=== PATIENT | female | born 1975 | race Caucasian/White ===

== ENCOUNTER 2017-09-22 12:41 | Outpatient (CLI) | payer MEDICARE ==
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
== END 2017-09-22 12:42 | disposition home or self-care (01) ==
LOC: TBSIIMAG 12:41
PROVIDERS: ATTEND Neurological Surgery
DX: M50.30 Other cervical disc degeneration, unspecified cervical region (principal); M47.892 Other spondylosis, cervical region
CPT/HCPCS: 72040; 72141

== ENCOUNTER 2017-10-12 06:18 | Day surgery (SDC) | payer MEDICARE ==
[2017-10-09 09:34] VITALS: BMI 18.4
[2017-10-12] MEDS ORDERED: Sodium Chloride 0.9% 10 ML ONE (06:38)
[2017-10-12 07:11] LABS: Hemoglobin 11.5 g/dL (12.0-16.0); Mean Corpuscular HGB CONC 32.4 g/dL (32.0-36.0); Mean Corpuscular Hemoglobin 29.2 pg (27.0-31.0); Mean Corpuscular Volume 90.3 fl (81.0-99.0); Mean Platelet Volume 7.5 fL (7.4-10.4); Platelet Count 400 thou/uL (130-400); RBC Distribution Width 14.1 % (11.5-14.5); Red Blood Cell (RBC) Count 3.94 mill/uL (4.20-5.40); White Blood Cell (WBC) Count 11.1 thou/uL (4.8-10.8)
[2017-10-12] MEDS ORDERED: CEFAZOLIN/Water 2 GM/20 ML SYRINGE ONE (07:26)
[2017-10-12 07:27] LABS: Anion Gap 9 mmol/L (10-20); BUN (Urea Nitrogen) 16 mg/dL (7.0-18.7); Calc. Creatinine Clearance 71 mL/min (70-130); Calcium 9.3 mg/dL (7.8-10.44); Carbon Dioxide 23 mmol/L (22-29); Chloride 111 mmol/L (98-107); Estimated GFR-MDRD 67; Glucose 107 mg/dL (70-105); Potassium 4.1 mmol/L (3.5-5.1); Sodium 139 mmol/L (136-145)
[2017-10-12] MEDS ORDERED: Fentanyl 100 MCG/2 ML VIAL ONE ×4 (07:35→09:56)
[2017-10-12] MEDS ORDERED: Midazolam HCl 2 mg/2 ml Vial ONE (08:22)
[2017-10-12] MEDS ORDERED: HYDROmorphone 0.5 MG/0.5 ML SYRINGE ONE (08:30)
--- NOTE | 2017-10-12 10:22 | OP ---
DATE OF PROCEDURE: 10/12/2017 SURGEON: Raheem Hughes M.D. PROCEDURES PERFORMED: Anterior cervical discectomy C5-6 and C6-7, interbody arthrodesis, intraverteb ral biomechanical device, local morselized autograft, demineralized bone matrix, anterior titanium in strumentation C5-C7. PROCEDURE IN DETAIL: The patient was brought to the operating room and intubated. She was positione d supine in modest extension on a gel-filled donut. Incision was made in the right precervical area and dissecting medial sternocleidomastoid muscle, identified the anterior cervical spine and our leve l was confirmed by x-ray. We debrided anterior osteophytes, placed distraction across C5-C7 and comp letely decompressed the intravertebral discs. Next, the bony endplates were decorticated for the fir st arthrodesis and appropriately sized intravertebral biomechanical PEEK device was brought into the field, filled with demineralized bone matrix, local morselized autograft, and tapped into place secur xiao at C5-6 and C6-7. Next, an anterior plate was brought into the field and secured to C5, C6, and C7 using two 14 mm screws at each level. The wound was then extensively irrigated, immaculate hemost asis was secured, and the wound was closed in anatomic layers.
[2017-10-12] MEDS ORDERED: HYDROcodone/Acetaminophen 5/325 mg Tablet ONE (11:08)
== END 2017-10-12 11:35 | disposition home or self-care (01) ==
LOC: SDC 06:18
PROVIDERS: ATTEND Neurological Surgery
PROC: 0RG20A0 Fusion of 2 or more Cervical Vertebral Joints with Interbody Fusion Device, Anterior Approach, Anterior Column, Open Approach (ICD-10-PCS; principal; 2017-10-12)
DX: M50.823 Other cervical disc disorders at C6-C7 level (principal); M41.9 Scoliosis, unspecified; M79.7 Fibromyalgia; R25.1 Tremor, unspecified; F17.210 Nicotine dependence, cigarettes, uncomplicated; Z88.2 Allergy status to sulfonamides; Z88.5 Allergy status to narcotic agent; Z98.890 Other specified postprocedural states
CPT/HCPCS: 36415; 76001; 80048; 85027; 93005; 93010; 96374; A4216; C1713; C1776; J1170; J2250; J3010; J3490

== ENCOUNTER 2017-12-15 13:39 | Outpatient (CLI) | payer MEDICARE ==
--- NOTE | 2017-12-15 14:30 | RAD ---
FOUR VIEWS CERVICAL SPINE SERIES: COMPARISON: Reference is made to 11/02/17. INDICATION: Cervical region disk degeneration. History of prior neck surgery. FINDINGS: There is anterior metallic fusion spanning the C5 through C7 segments, with grossly stable hardware. Lateral masses of C1 are appropriate aligned. Imaged aspects of the dens are intact. Prevertebral soft tissues are normal in caliber. The exam is otherwise grossly stable. IMPRESSION: Stable-appearing postoperative cervical spine. POS: [facility]
== END 2017-12-15 13:40 | disposition home or self-care (01) ==
LOC: TBSIIMAG 13:39
PROVIDERS: ATTEND Neurological Surgery
DX: M50.30 Other cervical disc degeneration, unspecified cervical region (principal); Z98.890 Other specified postprocedural states
CPT/HCPCS: 72040

== ENCOUNTER 2018-01-06 08:40 | Outpatient (CLI) | payer MEDICARE ==
--- NOTE | 2018-01-06 14:10 | MRI ---
MRI THORACIC SPINE NONCONTRAST: CLINICAL HISTORY: Thoracic spine pain. History of remote injury. FINDINGS: There is mild thoracic kyphosis. No acute marrow edema or subluxation. Multilevel chronic Schmorl's nodes are present throughout the thoracic spine. At the T2-3 level, there is a left paracentral dis k protrusion which produces mild effacement/mass effect upon the ventral thoracic spinal cord. At T3 -4, there is a right paracentral disk protrusion with minimal effacement of the right ventral hemicor d. T6-7 level reveals a small disc protrusion with mild ventral cord effacement. There is mild multilevel bilateral degenerative facet hypertrophy. There is no acute paraspinous soft tissue edema. There is an incidental T2 hyperintensity of the melany tral aspect of the liver incompletely evaluated. IMPRESSION: 1. Multilevel degenerative changes of the thoracic spine, as outlined above. 2. Incidental note of T2 hyperintensity of the liver, incompletely evaluated. Recommend pre- and po stcontrast CT of the abdomen to further evaluate. POS: [facility]
--- NOTE | 2018-01-06 14:28 | MRI ---
MRI LUMBAR SPINE WITHOUT CONTRAST: History Lumbar radiculopathy. Chronic pain. COMPARISON: None. FINDINGS: Aortic contour is nonaneurysmal. No retroperitoneal adenopathy. No hydronephrosis. Mild prominence of the right renal pelvis. The background marrow signal is normal. The conus medullaris terminates near the inferior end plate of L1. Levels are as follows: L1-2: Normal disks. No neural foraminal or spinal canal narrowing. L2-3: Normal disks. No neural foraminal or spinal canal narrowing. L3-4: Low-grade circumferential disk bulge. There is mild degenerative disk space height loss. The re is moderate left-sided and mild right-sided neural foraminal narrowing. There does appear to be s ome abutment of the exiting left L3 nerve root. L3-4: Moderate disk desiccation. Mild posterior degenerative disk space height loss. There is a ri ght subforaminal annular fissure. There is abutment of the exiting right nerve root with moderate ne ural foraminal narrowing. No significant left-side neural foraminal narrowing. Mild facet arthrosis . L5-S1: Normal disk. No neural foraminal or spinal canal narrowing. IMPRESSION: Moderate spondylosis as described above, worst at L3-4 and L4-5. POS: [facility]
== END 2018-01-06 08:41 | disposition home or self-care (01) ==
LOC: SCSMRI 08:40
PROVIDERS: ATTEND Neurological Surgery
DX: M47.26 Other spondylosis with radiculopathy, lumbar region (principal); M54.6 Pain in thoracic spine; M47.894 Other spondylosis, thoracic region
CPT/HCPCS: 72146; 72148

== ENCOUNTER 2018-03-29 07:40 | Inpatient (IN) | payer MEDICARE, MEDICAID ==
[2018-03-26 17:41] VITALS: BMI 21.8
[2018-03-29] MEDS ORDERED: CEFAZOLIN/Water 2 GM/20 ML SYRINGE ONE (09:48)
[2018-03-29 09:50] LABS: #Basophils 0.1 thou/uL (0.0-0.2); #Eosinphils 0.2 thou/uL (0.0-0.7); #Lymphocytes 3.9 thou/uL (1.20-3.40); #Monocytes 0.8 thou/uL (0.11-0.59); #Neutrophils 7.8 thou/uL (1.40-6.50); %Basophils 0.9 % (0.0-1.0); %Eosinophils 1.9 % (0.0-10.0); %Lymphocytes 30.2 % (21.0-51.0); %Monocytes 6.4 % (0.0-10.0); %Neutrophils 60.7 % (42.0-75.0); Hemoglobin 13.5 g/dL (12.0-16.0); Mean Corpuscular HGB CONC 32.8 g/dL (32.0-36.0); Mean Corpuscular Volume 94.4 fL (78.0-98.0); Mean Platelet Volume 7.2 fL (7.4-10.4); Platelet Count 277 thou/uL (130-400); RBC Distribution Width 13.3 % (11.5-14.5); Red Blood Cell (RBC) Count 4.35 mill/uL (4.20-5.40); White Blood Cell (WBC) Count 12.8 thou/uL (4.8-10.8)
[2018-03-29] MEDS ORDERED: Fentanyl 100 MCG/2 ML VIAL ONE ×4 (10:06→13:53)
[2018-03-29 10:09] LABS: Anion Gap 10 mmol/L (10-20); BUN (Urea Nitrogen) 16 mg/dL (7.0-18.7); Calc. Creatinine Clearance 93 mL/min (70-130); Carbon Dioxide 24 mmol/L (22-29); Chloride 112 mmol/L (98-107); Estimated GFR-MDRD 76; Glucose 88 mg/dL (70-105); Potassium 4.5 mmol/L (3.5-5.1); Sodium 141 mmol/L (136-145)
[2018-03-29] MEDS ORDERED: Sodium Chloride 0.9% 10 ML ONE (10:39)
--- NOTE | 2018-03-29 12:40 | OP ---
DATE OF PROCEDURE: 03/29/2018 SURGEON: Raheem Hughes M.D. LOADERS: Kashif Long PA-C PROCEDURE: Left L3-L4 laminectomy, facetectomy and diskectomy, interbody arthrodesis, intravertebral biomechanical device, local morselized autograft, demineralized bone matrix, posterior lateral arthr odesis and pedicle screw instrumentation left L3-L4. PROCEDURE IN DETAIL: The patient was brought to the operating room and intubated. She was rolled in the prone position on gel-filled chest rolls. Incision made exposing L3 and L4 bilaterally and our level was confirmed by x-ray. We performed a left L3-4 laminectomy, facetectomy, foraminotomy, and i dentified a far lateral bulging disk, as anticipated. This was incised and debrided and a complete d ecompression was achieved. The disk itself was completely removed and the bony endplates decorticate d for the purpose of arthrodesis. Appropriately sized intravertebral biomechanical PEEK device was b rought into the field, filled with demineralized bone matrix and local morselized autograft, and matias ed into place securely at L3-4. Next, pedicle screws were placed at left L3 and left L4 using latera l fluoroscopic guidance and the positioning was confirmed by x-ray. Ed was secured between the scre ws, connected by nuts which were final tightened. We then extensively irrigated, immaculate hemostas is was secured. A combination of demineralized bone matrix, local morselized autograft placed over t he right laminar and posterolateral surfaces for arthrodesis. Vancomycin powder was applied and the wound was then closed in anatomic layers.
[2018-03-29] MEDS ORDERED: HYDROmorphone 2 MG/ML VIAL ONE (13:09)
[2018-03-29] MEDS ORDERED: HYDROcodone/Acetaminophen 5/325 mg Tablet ONE (15:12)
--- NOTE | 2018-03-30 09:37 | EKG ---
Test Reason : PREOP Blood Pressure : / mmHG Vent. Rate : 053 BPM Atrial Rate : 053 BPM P-R Int : 160 ms QRS Dur : 084 ms QT Int : 426 ms P-R-T Axes : 062 063 058 degrees QTc Int : 399 ms Sinus bradycardia Otherwise normal ECG When compared with ECG of 12-OCT-2017 06:47, No significant change was found Confirmed by SILVER WOODARD ([id number]) on 03/30/2018 9:37:11 AM Referred By: SARANYA Confirmed By:SILVER WOODARD
== END 2018-03-29 16:25 | disposition home or self-care (01) | DRG 460 ==
LOC: SURG A 07:40
PROVIDERS: ADMIT Neurological Surgery; ATTEND Neurological Surgery
PROC: 0SB20ZZ Excision of Lumbar Vertebral Disc, Open Approach (ICD-10-PCS; principal; 2018-03-29)
PROC: 0SG00A0 Fusion of Lumbar Vertebral Joint with Interbody Fusion Device, Anterior Approach, Anterior Column, Open Approach (ICD-10-PCS; 2018-03-29)
DX: M54.16 Radiculopathy, lumbar region (principal); K21.9 Gastro-esophageal reflux disease without esophagitis
CPT/HCPCS: 36415; 76001; 80048; 85025; 93005; 93010; 96374; C1713; C1768; J1170; J3010; J3370; J3490

== ENCOUNTER 2018-04-30 09:49 | Outpatient (CLI) | payer MEDICARE, MEDICAID ==
--- NOTE | 2018-04-30 11:49 | RAD ---
RADIOGRAPH LUMBAR SPINE 2 VIEWS: DATE: 04/30/2018. HISTORY: A 43-year-old female with M51.16 intervertebral disk disorder. COMPARISON: No prior plain radiographs of the lumbar spine. There is a lumbar spine MRI of 12/27/2017. FINDINGS: There are 5 lumbar-type vertebrae. There are new left-sided pedicle screws at L3 and L4 with vertica l interlocking rand. Metallic markers for interbody cage at the L3-4 disk space. Vertebral body heig hts are maintained. Alignment is normal. No severe disk space narrowing at any level. There is mil d disk space narrowing at L3-4 and L4-5. IMPRESSION: Status post posterior lumbar interbody fusion with unilateral left pedicle screws, at L3-4. JN [] POS: [facility]
== END 2018-04-30 09:50 | disposition home or self-care (01) ==
LOC: TBSIIMAG 09:49
PROVIDERS: ATTEND Neurological Surgery
DX: M51.16 Intervertebral disc disorders with radiculopathy, lumbar region (principal); Z98.890 Other specified postprocedural states
CPT/HCPCS: 72100

== ENCOUNTER 2018-07-06 12:45 | Outpatient (CLI) | payer MEDICARE, MEDICAID ==
--- NOTE | 2018-07-06 13:55 | RAD ---
LUMBAR SPINE THREE VIEWS: INDICATIONS: Lumbar radiculopathy. COMPARISON: 04/30/2018 FINDINGS: Three lateral views were taken in neutral, flexion, and extension positions. The pedicle screws on the left, at L3-L4, are again noted. There is an interbody disk implant at L3- L4. This implant shows posterior migration when compared to the exam of 04/30/2018. The posterior m arker on this implant now encroaches into the spinal canal. Mild disk space narrowing at L3-L4 and at L4-L5 appear stable. Posterior lamina appears preserved wi th flexion and extension. IMPRESSION: The interbody disk implant at L3-L4 shows posterior migration with the posterior marker now into the anterior spinal canal. POS: [facility]
== END 2018-07-06 12:46 | disposition home or self-care (01) ==
LOC: TBSIIMAG 12:45
PROVIDERS: ATTEND Neurological Surgery
DX: M54.16 Radiculopathy, lumbar region (principal); Z98.890 Other specified postprocedural states
CPT/HCPCS: 72100

== ENCOUNTER 2018-07-12 07:35 | Day surgery (SDC) | payer MEDICARE, MEDICAID ==
[2018-07-09 13:44] VITALS: BMI 22.1
[2018-07-12 08:28] LABS: Hemoglobin 11.5 g/dL (12.0-16.0); Mean Corpuscular HGB CONC 31.7 g/dL (32.0-36.0); Mean Corpuscular Hemoglobin 30.3 pg (27.0-31.0); Mean Corpuscular Volume 95.6 fL (78.0-98.0); Mean Platelet Volume 6.9 fL (7.4-10.4); Platelet Count 520 thou/uL (130-400); RBC Distribution Width 12.9 % (11.5-14.5); White Blood Cell (WBC) Count 9.6 thou/uL (4.8-10.8)
[2018-07-12 08:50] LABS: Anion Gap 16 mmol/L (10-20); BUN (Urea Nitrogen) 17 mg/dL (7.0-18.7); Calc. Creatinine Clearance 105 mL/min (70-130); Carbon Dioxide 19 mmol/L (22-29); Chloride 110 mmol/L (98-107); Estimated GFR-MDRD 86; Glucose 85 mg/dL (70-105); Potassium 4.4 mmol/L (3.5-5.1); Sodium 141 mmol/L (136-145)
[2018-07-12] MEDS ORDERED: Sodium Chloride 0.9% 10 ML ONE (09:06)
[2018-07-12] MEDS ORDERED: Fentanyl 100 MCG/2 ML VIAL ONE ×3 (09:34→12:39)
[2018-07-12] MEDS ORDERED: CEFAZOLIN 2 GM/50 ML BAG ONE (11:12)
[2018-07-12] MEDS ORDERED: Ondansetron HCl/PF 4 MG/2 ML Vial IVP PRN (12:37)
[2018-07-12] MEDS ORDERED: Promethazine HCl 25 MG/ML VIAL SLOW IVP PRN (12:37)
[2018-07-12] MEDS ORDERED: Promethazine HCl 25 MG/ML VIAL IM PRN (12:37)
[2018-07-12] MEDS ORDERED: HYDROmorphone 2 MG/ML VIAL ONE (12:45)
[2018-07-12] MEDS ORDERED: Ondansetron PF 4 MG/2 ML Vial ONE ×2 (12:53→13:28)
[2018-07-12] MEDS ORDERED: PROPOFOL 200 MG/20 ML VIAL ONE (13:28)
[2018-07-12] MEDS ORDERED: Dexamethasone 20 MG/5 ML VIAL ONE (13:28)
[2018-07-12] MEDS ORDERED: Ketorolac Tromethamine 30 MG/ML VIAL ONE (13:28)
[2018-07-12] MEDS ORDERED: Glycopyrrolate 0.2 MG/ML 5 ML SYRINGE ONE (13:28)
[2018-07-12] MEDS ORDERED: Lidocaine 1% PF 5 ML VIAL ONE (13:28)
[2018-07-12] MEDS ORDERED: Rocuronium Bromide 10 MG/ML (10ML VIAL) ONE (13:28)
--- NOTE | 2018-07-12 14:15 | OP ---
DATE OF PROCEDURE: 07/12/2018 TOPPER PACKER: Juan Luis Long PA-C PROCEDURES PERFORMED: Exploration of spinal fusion L4-L5, removal of hardware L4-L5, posterolateral arthrodesis L4-L5, pedicle screw instrumentation, demineralized bone matrix, and BMP. DESCRIPTION OF PROCEDURE: The patient was brought to the operating room and intubated. She was rolled in a prone position on gel-filled chest rolls. Incision was reopened and the prior hardware identified. We found the left L5 screw to be loose. This was removed and replaced with a large diameter screw. We then explored the interbody device and had migrated and removed this. We explored the spinal fusion. There was no evidence of solid bony fusion. After extensive irrigation and hemostasis, we then placed BMP on a Gelfoam soaked pledget with cancellous bone chips over the right lamina and posterolateral surfaces for the purpose of arthrodesis. Vancomycin powder was applied and the wound was closed in anatomic layers. Job ID: [id number]
[2018-07-12] MEDS ORDERED: HYDROcodone/Acetaminophen 10/325 mg Tablet ONE (15:00)
--- NOTE | 2018-07-12 20:19 | EKG ---
Test Reason : PREOP Blood Pressure : / mmHG Vent. Rate : 064 BPM Atrial Rate : 064 BPM P-R Int : 142 ms QRS Dur : 084 ms QT Int : 394 ms P-R-T Axes : 055 060 049 degrees QTc Int : 406 ms Normal sinus rhythm Normal ECG When compared with ECG of 29-MAR-2018 09:52, No significant change was found Confirmed by MAHESH HWANG, DR. Orta ([id number]) on 07/12/2018 8:18:52 PM Referred By: SARANYA Confirmed By:DR. You ARAGON MD
--- NOTE | 2018-07-13 22:45 | DIS ---
DATE OF ADMISSION: 07/12/2018 DATE OF DISCHARGE: 07/12/2018 ATTENDING PHYSICIAN: Raheem Hughes MD HOSPITAL COURSE: The patient is a 43-year-old female known to us for prior L4-L5 decompression and fusion. Following the surgery, she was healing well. However, she had significant worsening of her back pain after mechanical fall and was found to have loosened screw. She was also found to have migration of her interbody device posteriorly. She was brought to the operating room yesterday for exploration of spinal fusion, removal of the interbody device, and replacement of left L5 screw which was loose with a larger diameter screw. Following surgery, she was transitioned to Day Stay, where her pain was well controlled with p.o. medications. She was tolerating regular diet and she was voiding appropriately. I discussed home care precautions. We will follow up with the patient in 2 weeks. She was provided with scripts for hydrocodone. Job ID: [id number]
== END 2018-07-12 15:33 | disposition home or self-care (01) ==
LOC: SDC 07:35 → SURG A 07:35 → UNDOADMIN 07:35 → EDSTATUS 11:05 → UNDODISIN 15:33 → SDC 15:33
PROVIDERS: ATTEND Neurological Surgery
PROC: 0PJY0ZZ Inspection of Upper Bone, Open Approach (ICD-10-PCS; principal; 2018-07-12)
DX: T84.226A Displacement of internal fixation device of vertebrae, initial encounter (principal); Z88.5 Allergy status to narcotic agent; Z79.899 Other long term (current) drug therapy
CPT/HCPCS: 22830; 76000; 80048; 85027; 93005; C1713 ×2; L0639; 93010; J0131; J1100; J1170; J1885; J2001; J2405; J2704; J3010; J3370; J3490

== ENCOUNTER 2018-07-29 09:22 | Outpatient (CLI) | payer MEDICARE, MEDICAID ==
--- NOTE | 2018-07-29 11:27 | RAD ---
LUMBAR SPINE 3 VIEWS: HISTORY: M51.16, intervertebral disk disorder with radicular pain. COMPARISON: Radiograph of 06/16/2018. FINDINGS: Multiple midline surgical osvaldo. Left-sided unilateral posterior spinal fusion hardware at L3-4. Removal of the diskectomy spacer. Mild narrowing of the L3-4 disk space. IMPRESSION: Interval removal of interbody spacer of L3-4. POS: [facility]
== END 2018-07-29 09:23 | disposition home or self-care (01) ==
LOC: TBSIIMAG 09:22
PROVIDERS: ATTEND Neurological Surgery
DX: M51.16 Intervertebral disc disorders with radiculopathy, lumbar region (principal); Z98.890 Other specified postprocedural states
CPT/HCPCS: 72100

== ENCOUNTER 2018-09-15 13:39 | Outpatient (CLI) | payer MEDICARE, MEDICAID ==
--- NOTE | 2018-09-15 14:26 | RAD ---
FXR Lumbar Spine 2 Or 3 View History: [M 24.5, M 21.36] Comparison: Lumbar spine Vertebrae 2019 Findings: Similar appearance left unilateral L4/L5 posterior spinal fusion. No hardware complication. No acute fracture or malalignment. No significant listhesis. Impression: Satisfactory postoperative appearance.
== END 2018-09-15 13:40 | disposition home or self-care (01) ==
LOC: TBSIIMAG 13:39
PROVIDERS: ATTEND Neurological Surgery
DX: M51.36 Other intervertebral disc degeneration, lumbar region (principal); Z98.890 Other specified postprocedural states
CPT/HCPCS: 72100

== ENCOUNTER 2018-12-22 12:55 | Outpatient (CLI) | payer MEDICARE, MEDICAID ==
--- NOTE | 2018-12-22 13:52 | RAD ---
LUMBAR SPINE: 12/22/18 Two views. HISTORY: Lumbar radiculopathy. COMPARISON: 09/15/18. Pedicle screws are seen on the left at L3-4. Vertebral bodies maintain height and alignment. Mild dis c space narrowing at L3-4 is stable. No significant change from 09/15/18. IMPRESSION: Stable findings. POS: [facility]
== END 2018-12-22 12:56 | disposition home or self-care (01) ==
LOC: TBSIIMAG 12:55
PROVIDERS: ATTEND Neurological Surgery
DX: M54.16 Radiculopathy, lumbar region (principal)
CPT/HCPCS: 72100

== ENCOUNTER 2019-03-01 06:47 | Day surgery (SDC) | payer MEDICARE, MEDICAID ==
[2019-02-28 10:10] VITALS: BMI 20.7
--- NOTE | 2019-03-01 10:10 | RAD ---
Lumbar myelogram Cervical myelogram HISTORY: Neck pain and back pain. Prior surgery. FINDINGS: After explaining the procedure and answering all questions, the patient was placed on the f luoroscopy table in prone position. Sterile technique, buffered local anesthesia, fluoroscopic guidance, and a posterior L2-3 approach were used to carefully advance the tip of a 22-gauge spinal n eedle into the thecal sac. Approximately 8 cc of Isovue 200 M contrast was injected into the thecal sac under fluoroscopic control and needle removed. Patient was repositioned to remove a portion of th e contrast to the cervical spine. Patient tolerated the procedure well and was transferred to CT for additional imaging. Fluoroscopy time 1 minute. IMPRESSION: Technically successful cervical/lumbar myelogram. CT is pending.
--- NOTE | 2019-03-01 10:19 | CT ---
CT cervical spine with intrathecal contrast HISTORY: Neck pain. Prior surgery. FINDINGS: Cervical myelogram was performed and reported separately. Vertebral body heights and alignment are maintained. Anterior fixation plate and screws at the C5-6-7 levels. C2-3: Minimal osteophytosis. Central canal and neural foramina are patent. C3-4: Left posterolateral osteophyte/disc complex with slight flattening and rotation of the left dinh tral aspect of the thecal sac and spinal cord. Mild central canal stenosis. Neural foramina are patent. C4-5: Mild broad-based posterior osteophyte/disc complex with slight effacement of the ventral aspect of the thecal sac and spinal cord. Circumferential degenerative changes with mild stenosis of the central canal. Osteophytosis with mild right and moderate to severe left foraminal stenoses. C5-6: Postoperative changes. Posterior osteophyte/disc complex and circumferential degenerative lazaro es. Mild to moderate stenosis of the central canal. Severe bilateral foraminal stenoses. C6-7: Postoperative changes. Narrowing of the disc space. Thecal sac and neural foramina are patent. C7-T1: Mild osteophytosis. Central canal and neural foramina are patent. IMPRESSION: Postoperative and multilevel degenerative changes throughout the cervical spine as detail ed above. Stenosis most severe at each neural foramen C5-6 level. Clinical correlation regarding each C6 dermatome is required.
--- NOTE | 2019-03-01 11:12 | CT ---
CT lumbar spine with contrast HISTORY: Low back pain. Prior surgery. FINDINGS: Lumbar myelogram was performed and reported separately. Vertebral body heights and alignment are maintained. Left pedicle screws, vertical rand, and posterior interspinous process osseous fusion material at the L3-4 level. Right renal cyst partially visualized. Calcification in the arterial structures. T12-L1: Mild osteophytosis. Small left Tarlov cyst. Central canal and neural foramina are patent. Mil d osteophytosis. Central canal and neural foramina are patent. L1-2: Mild osteophytosis. Central canal and neural foramina are patent. L2-3: Mild osteophytosis. Central canal and neural foramina are patent. L3-4: Mild disc space narrowing. Axial hyperdensity at the posterior aspect of the disc space may rep resent calcification or foreign material from prior surgery. The thecal sac and right neural foramen are patent. Left pedicle screws and vertical rand are in place. The left superior facet is nato ncated with the appearance of prior surgery. In its place and extending anteriorly is a horizontally oriented ossification that is 1.0 cm anterior/posterior depth by 0.4 cm craniocaudal estela gth. It occupies the inferior aspect of the left neural foramen, significantly compressing the superiorly displaced L3 nerve root. Additional smaller ossific fragments lie posterior to the suppose d location of the superior facet and the neural foramen. L4-5: Mild disc space narrowing and diffuse disc bulge. Thecal sac is patent. Far right lateral disc bulge and osteophytosis result in mild to moderate stenosis of the right neural foramen. Left neural foramen is patent. L5-S1: Mild osteophytosis. Central canal and neural foramina are patent. IMPRESSION: Postoperative and degenerative changes throughout the lumbar spine as detailed above. Abel ral compromise greatest at the left L3-4 neural foramen, with extensive postoperative changes, including a small ossific fragment compressing the left L3 nerve root within the neural foramen. Clin ical correlation regarding the left L3 dermatome is required.
== END 2019-03-01 09:45 | disposition home or self-care (01) ==
LOC: RAD 06:47
PROVIDERS: ATTEND Neurological Surgery
DX: M54.16 Radiculopathy, lumbar region (principal); M54.2 Cervicalgia; F17.200 Nicotine dependence, unspecified, uncomplicated; E03.9 Hypothyroidism, unspecified; Z88.5 Allergy status to narcotic agent; M79.7 Fibromyalgia
CPT/HCPCS: 62305; 72126; 72132

== ENCOUNTER 2019-07-18 11:18 | Inpatient (IN) | payer MEDICARE, MEDICAID ==
[2019-07-18 12:29] LABS: #Basophils 0.1 thou/uL (0.0-0.2); #Eosinphils 0.2 thou/uL (0.0-0.7); #Lymphocytes 3.2 thou/uL (1.20-3.40); #Monocytes 0.5 thou/uL (0.11-0.59); #Neutrophils 8.6 thou/uL (1.40-6.50); %Basophils 1.1 % (0.0-1.0); %Eosinophils 1.6 % (0.0-10.0); %Lymphocytes 25.1 % (21.0-51.0); %Monocytes 3.7 % (0.0-10.0); %Neutrophils 68.5 % (42.0-75.0); Hemoglobin 13.8 g/dL (12.0-16.0); Mean Corpuscular HGB CONC 31.8 g/dL (32.0-36.0); Mean Corpuscular Hemoglobin 28.6 pg (27.0-31.0); Mean Corpuscular Volume 89.8 fL (78.0-98.0); Mean Platelet Volume 7.6 fL (7.4-10.4); Platelet Count 451 thou/uL (130-400); RBC Distribution Width 14.6 % (11.5-14.5); Red Blood Cell (RBC) Count 4.85 mill/uL (4.20-5.40); White Blood Cell (WBC) Count 12.6 thou/uL (4.8-10.8)
[2019-07-18 12:54] LABS: ALT (SGPT) 7 U/L (8-55); AST (SGOT) 21 U/L (5-34); Albumin 4.7 g/dL (3.5-5.0); Alkaline Phosphatase 93 U/L (40-110); Anion Gap 18 mmol/L (10-20); BUN (Urea Nitrogen) 20 mg/dL (7.0-18.7); Bilirubin, Total Less than 0.2 mg/dL (0.2-1.2); Calc. Creatinine Clearance 0 mL/min (70-130); Carbon Dioxide 24 mmol/L (22-29); Chloride 101 mmol/L (98-107); Estimated GFR-MDRD 43; Globulin 4.1 g/dL (2.4-3.5); Glucose 101 mg/dL (70-105); Lipase 15 U/L (8-78); Potassium 5.1 mmol/L (3.5-5.1); Protein, Total 8.8 g/dL (6.0-8.3); Sodium 138 mmol/L (136-145)
[2019-07-18 12:56] LABS: Calcium 13.5 mg/dL (7.8-10.44)
[2019-07-18] MEDS ORDERED: Fentanyl 100 MCG/2 ML VIAL ONE ×2 (13:13→14:56)
[2019-07-18 13:38] LABS: Bilirubin Small (Negative); Blood, Urine Negative (Negative); Glucose, Urine (Dipstick) Negative (Negative); Leukocyte Negative (Negative); Nitrite Negative (Negative); Protein, Urine (Dipstick) Negative (Neg-Trace); Urobilinogen 0.2 mg/dL (Less than 2)
[2019-07-18 13:42] LABS: Clarity Clear (Clear)
[2019-07-18 13:54] LABS: RBC/HPF None Seen HPF (0-3)
[2019-07-18 13:55] LABS: Bacteria/HPF None Seen HPF (None Seen); Squamous Epithelial 0-3 HPF (0-3); WBC/HPF None Seen HPF (0-3)
[2019-07-18] MEDS ORDERED: Iopamidol-370 76% 500 ML 1 ML ONE (14:38)
--- NOTE | 2019-07-18 14:51 | CT ---
CT ABDOMEN AND PELVIS WITH ORAL AND IV CONTRAST: Date: 07/18/2019 HISTORY: Severe abdominal pain, not able to eat for 4 days. COMPARISON: None. FINDINGS: There are dependent changes at the lung bases posteriorly. No calcified gallstones are seen. The live r, spleen, pancreas, adrenal glands, and left kidney are normal. There is a 15 mm cyst arising from t he inferior pole of the right kidney. No free air, free fluid, or lymphadenopathy noted in the abdomen or pelvis. There are vascular calcif ications without evidence of aneurysmal dilatation of the abdominal aorta. There are postop changes o f posterior spinal fusion with left-sided pedicle screws at L3 and L4 levels. The patient is status post hysterectomy and appendectomy. The small bowel loops are not abnormally di lated. The colon is decompressed. IMPRESSION: 1. Right renal cyst. 2. No evidence of acute process. POS: [facility]
[2019-07-18] MEDS ORDERED: Acetaminophen 325 MG TAB PO PRN (16:38)
[2019-07-18] MEDS ORDERED: Famotidine/PF 20 mg/2ml Vial SLOW IVP PRN (16:38)
[2019-07-18] MEDS ORDERED: Bisacodyl 5 MG TAB PO PRN (16:38)
[2019-07-18] MEDS ORDERED: HYDROcodone/Acetaminophen 5/325 mg Tablet PO PRN (16:38)
[2019-07-18] MEDS ORDERED: Loperamide HCl 2 MG CAP PO PRN (16:38)
[2019-07-18] MEDS ORDERED: HYDROcodone/Acetaminophen 7.5/325 mg Tablet PO PRN (16:38)
[2019-07-18] MEDS ORDERED: Labetalol HCl 100 MG/20 ML VIAL SLOW IVP PRN (16:40)
[2019-07-18] MEDS ORDERED: Melatonin 3 MG TAB PO PRN (16:40)
[2019-07-18] MEDS ORDERED: Docusate 100 MG CAP PO PRN (16:40)
[2019-07-18] MEDS ORDERED: diphenhydrAMINE 25 MG CAP PO PRN (16:40)
[2019-07-18] MEDS ORDERED: Benzonatate 100 MG CAP PO PRN (16:40)
[2019-07-18] MEDS ORDERED: Metoclopramide HCl 10 MG/2 ML VIAL IVP PRN (16:43)
--- NOTE | 2019-07-18 16:49 | PDOC.HHP ---
Hospitalist HPI - History of Present Illness Inability to eat or drink History of Present Illness: 44 year old female with PMHx of HTN, HLD, Hypothyroid, depression, GERD, ulcers , and severe pyloric stenosis presents with inability to hold down food or liquids. Patient diagnosed with stenosis of the pyloris in February of 2019 and went for therapeutic dilation with Dr Ruiz. Patient had another EGD with dilation with Dr Ruiz in May of 2019 and there was worsening stenosis. Patient now with nearly 4 weeks of inability to keep down much food or liquids, this has worsened over the past week. Patient with vomiting almost immediately when food goes in the stomach. Patient has lost nearly 50 pounds since this all started, which she states she has been stopped on her HTN and HLD medications because of this. Patient admitted to medical unit for GI consult and may require EGD vs surgical intervention. Patient continues to smoke cigarettes. Hospitalist ROS - Review of Systems All other systems reviewed; all pertinent +/- noted in HPI/Subj Hospitalist History - Past Medical History Source: patient Cardiac: reports: HTN, Hyperlipidemia Gastrointestinal: reports: GERD, Gastritis, Peptic ulcer disease, Other ( Pyloric stenosis) - Past Surgical History Past Surgical History: reports: Other (EGD) - Family History Family History: reports: hypertension - Social History Smoking Status: Current every day smoker Tobacco Type: cigarettes Alcohol: reports: None Drugs: reports: none Living Situation: With Family Domestic Violence: Negative Activity level: independent ambulation - Exam General Appearance: ill appearing Eye: PERRL, anicteric sclera ENT: normocephalic atraumatic, moist mucosa Neck: supple, symmetric, no lymphadenopathy Heart: RRR, no murmur, no gallops, no rubs Respiratory: CTAB, no wheezes, no rales, no ronchi, normal chest expansion, no tachypnea Gastrointestinal: soft, non-tender, non-distended, no palpable masses, no guarding, no rigidity Extremities: no edema Skin: no lesions, no rashes Neurological: cranial nerve grossly intact, no focal deficits Musculoskeletal: generalized weakness Psychiatric: normal affect, normal behavior, A&O x 3 Hospitalist Results - Labs Result Diagrams: 07/18/19 12:20 07/18/19 12:20 Lab results: WBC 12.6 thou/uL (4.8-10.8) H 07/18/19 12:20 Hgb 13.8 g/dL (12.0-16.0) 07/18/19 12:20 Hct 43.5 % (36.0-47.0) 07/18/19 12:20 MCV 89.8 fL (78.0-98.0) 07/18/19 12:20 Plt Count 451 thou/uL (130-400) H 07/18/19 12:20 Neutrophils % 68.5 % (42.0-75.0) 07/18/19 12:20 Sodium 138 mmol/L (136-145) 07/18/19 12:20 Potassium 5.1 mmol/L (3.5-5.1) 07/18/19 12:20 Chloride 101 mmol/L (98-107) 07/18/19 12:20 Carbon Dioxide 24 mmol/L (22-29) 07/18/19 12:20 BUN 20 mg/dL (7.0-18.7) H 07/18/19 12:20 Creatinine 1.34 mg/dL (0.6-1.1) H 07/18/19 12:20 Glucose 101 mg/dL (70-105) 07/18/19 12:20 Calcium 13.5 mg/dL (7.8-10.44) H* 07/18/19 12:20 Total Bilirubin Less than 0.2 mg/dL (0.2-1.2) L 07/18/19 12:20 AST 21 U/L (5-34) 07/18/19 12:20 ALT 7 U/L (8-55) L 07/18/19 12:20 Alkaline Phosphatase 93 U/L (40-110) 07/18/19 12:20 Serum Total Protein 8.8 g/dL (6.0-8.3) H 07/18/19 12:20 Albumin 4.7 g/dL (3.5-5.0) 07/18/19 12:20 Lipase 15 U/L (8-78) 07/18/19 12:20 Urine Ketones Trace mg/dL (Negative) A 07/18/19 13:24 Urine Blood Negative (Negative) 07/18/19 13:24 Urine Nitrite Negative (Negative) 07/18/19 13:24 Ur Leukocyte Esterase Negative (Negative) 07/18/19 13:24 Urine RBC None Seen HPF (0-3) 07/18/19 13:24 Urine WBC None Seen HPF (0-3) 07/18/19 13:24 Ur Squamous Epith Cells 0-3 HPF (0-3) 07/18/19 13:24 Urine Bacteria None Seen HPF (None Seen) 07/18/19 13:24 - Radiology Interpretation CT scan - abdomen Status: image reviewed by me Hospitalist H&P A/P - Problem (1) Abdominal pain Code(s): R10.9 - UNSPECIFIED ABDOMINAL PAIN Status: Acute (2) KORINA (acute kidney injury) Code(s): N17.9 - ACUTE KIDNEY FAILURE, UNSPECIFIED Status: Acute (3) Severe protein-calorie malnutrition Code(s): E43 - UNSPECIFIED SEVERE PROTEIN-CALORIE MALNUTRITION Status: Acute (4) Nausea & vomiting Code(s): R11.2 - NAUSEA WITH VOMITING, UNSPECIFIED Status: Acute (5) Pyloric stenosis Code(s): K31.1 - ADULT HYPERTROPHIC PYLORIC STENOSIS Status: Acute (6) HTN (hypertension) Code(s): I10 - ESSENTIAL (PRIMARY) HYPERTENSION Status: Acute (7) HLD (hyperlipidemia) Code(s): E78.5 - HYPERLIPIDEMIA, UNSPECIFIED Status: Acute (8) Hypothyroid Code(s): E03.9 - HYPOTHYROIDISM, UNSPECIFIED Status: Acute (9) Tobacco abuse Code(s): Z72.0 - TOBACCO USE Status: Acute - Plan Plan: Plan: Admit to medical unit GI consultation, recommendations appreciated Start Clinimix Nearly 50 lb of weight loss, unintentional, over the past 7 months PPI BID No overt black or bloody BM Diet as tolerated PRN medications for N/v Pain control Continue other home medications as able Nicotine patch BP control BS control DVT PPX GI PPX
[2019-07-18] MEDS ORDERED: Cyclobenzaprine 10 MG TAB PO PRN (17:20)
[2019-07-18] MEDS ORDERED: Nicotine 14 MG PATCH ONE (18:31)
[2019-07-18] MEDS ORDERED: HYDROcodone/Acetaminophen 7.5/325 mg Tablet ONE (18:31)
[2019-07-18] MEDS ORDERED: Ondansetron PF 4 MG/2 ML Vial ONE (18:34)
[2019-07-18] MEDS: Ondansetron PF 4 MG/2 ML Vial IVP PRN (18:35)
[2019-07-18] MEDS: Nicotine 7 MG PATCH TD SCH (19:08)
[2019-07-18] MEDS: Gabapentin 300 MG CAP PO SCH (19:46)
[2019-07-18] MEDS: Promethazine 25 MG TAB PO PRN (20:03)
[2019-07-18] MEDS ORDERED: Promethazine 25 MG TAB ONE (20:04)
[2019-07-18] MEDS: Pantoprazole 40 MG VIAL IVP SCH (21:17)
[2019-07-18] MEDS ORDERED: Pantoprazole 40 MG VIAL ONE (21:19)
[2019-07-18] MEDS: DULoxetine 60 MG CAP PO SCH (21:30)
[2019-07-18] MEDS: D5W-AA 4.25% with LYTES 1,000 ML BAG IV SCH (21:55)
[2019-07-18] MEDS ORDERED: Metoclopramide HCl 10 MG/2 ML VIAL IVP SCH (22:00)
[2019-07-19] MEDS: Fentanyl 100 MCG/2 ML VIAL SLOW IVP PRN ×5 (00:28→21:52)
[2019-07-19 04:31] LABS: #Basophils 0.1 thou/uL (0.0-0.2); #Eosinphils 0.3 thou/uL (0.0-0.7); #Monocytes 0.6 thou/uL (0.11-0.59); #Neutrophils 4.7 thou/uL (1.40-6.50); %Eosinophils 3.1 % (0.0-10.0); %Lymphocytes 41.3 % (21.0-51.0); %Monocytes 5.8 % (0.0-10.0); %Neutrophils 48.9 % (42.0-75.0); Hemoglobin 11.9 g/dL (12.0-16.0); Mean Corpuscular HGB CONC 31.8 g/dL (32.0-36.0); Mean Corpuscular Hemoglobin 28.5 pg (27.0-31.0); Mean Corpuscular Volume 89.7 fL (78.0-98.0); Mean Platelet Volume 7.9 fL (7.4-10.4); Platelet Count 336 thou/uL (130-400); RBC Distribution Width 14.6 % (11.5-14.5); Red Blood Cell (RBC) Count 4.18 mill/uL (4.20-5.40); White Blood Cell (WBC) Count 9.6 thou/uL (4.8-10.8)
[2019-07-19 04:54] LABS: Anion Gap 15 mmol/L (10-20); BUN (Urea Nitrogen) 21 mg/dL (7.0-18.7); Calc. Creatinine Clearance 48 mL/min (70-130); Calcium 11.7 mg/dL (7.8-10.44); Carbon Dioxide 23 mmol/L (22-29); Chloride 104 mmol/L (98-107); Estimated GFR-MDRD 51; Glucose 94 mg/dL (70-105); Potassium 4.2 mmol/L (3.5-5.1); Sodium 138 mmol/L (136-145)
[2019-07-19] MEDS: Promethazine 25 MG TAB PO PRN (05:41)
[2019-07-19] MEDS ORDERED: Levothyroxine Sodium 100 MCG TAB PO SCH (06:00)
[2019-07-19] MEDS: Gabapentin 300 MG CAP PO SCH ×5 (07:37→21:11)
[2019-07-19] MEDS ORDERED: Prenatal Vitamin 1 TAB PO SCH (09:00)
[2019-07-19] MEDS ORDERED: Cyanocobalamin (Vitamin B-12) 1,000 MCG TAB PO SCH (09:00)
[2019-07-19] MEDS: Pantoprazole 40 MG VIAL IVP SCH ×2 (09:26→21:11)
[2019-07-19] MEDS: Enoxaparin Sodium 40 MG/0.4 ML SYRINGE SC SCH (09:29)
[2019-07-19] MEDS: DULoxetine 60 MG CAP PO SCH ×2 (09:29→21:11)
[2019-07-19] MEDS: D5W-AA 4.25% with LYTES 1,000 ML BAG IV SCH (13:21)
--- NOTE | 2019-07-19 15:23 | PDOC.HOSPP ---
- Subjective Encounter Date: 07/19/19 Encounter Time: 07:20 Subjective: Pt seen for followup re: pyloric stenosis. c/o nausea, vomiting. Unable to tolerate oral intake. - Objective Vital Signs & Weight: Vital Signs (12 hours) Temp Pulse Resp BP Pulse Ox 07/19/19 12:00 98 16 98 07/19/19 11:15 97.5 F L 87 18 129/63 95 07/19/19 08:00 97.9 F 80 18 128/69 98 07/19/19 03:46 97.7 F 75 16 115/71 96 Weight Admit Weight 108 lb 14.4 oz Weight 108 lb 14.4 oz I&O: 07/18/19 07/19/19 07/20/19 06:59 06:59 06:59 Intake Total 1050 Balance 1050 Result Diagrams: 07/19/19 04:10 07/19/19 04:10 Additional Labs: Labs and MARs reviewed by me EKG Reviewed by me: Yes (Tele: NSR) Hospitalist ROS - Review of Systems Constitutional: denies: fever, chills, sweats, weakness, malaise Respiratory: denies: cough, shortness of breath, SOB with excertion, pleuritic pain, wheezing Cardiovascular: denies: chest pain, palpitations, orthopnea, paroxysmal noc. dyspnea, edema, light headedness Gastrointestinal: reports: nausea, vomiting, abdominal pain. denies: diarrhea, constipation, melena, hematochezia Genitourinary: denies: dysuria, frequency, incontinence, hematuria, retention - Medication Medications: Active Medications Generic Name Dose Route Start Last Admin Trade Name Peteq PRN Reason Stop Dose Admin Hydrocodone Bitart/Acetaminophen 1 tab 07/18/19 16:38 07/18/19 18:35 [place] 7.5/325 PO 1 tab Q4H PRN Administration Severe Pain (7-10) Amino Acids/Electrolytes/Dextrose 1,000 ml 07/18/19 16:45 07/19/19 13:21 Clinimix E 4.25/5 IV 1,000 ml INF JM Administration Cyanocobalamin 1,000 mcg 07/19/19 09:00 07/19/19 09:26 Vitamin B-12 PO 1,000 mcg DAILY JM Administration Duloxetine HCl 60 mg 07/18/19 21:00 07/19/19 09:29 Cymbalta PO 60 mg BID JM Administration Enoxaparin Sodium 40 mg 07/19/19 09:00 07/19/19 09:29 Lovenox SC 40 mg 0900 [facility] Administration Famotidine 20 mg 07/18/19 16:38 07/19/19 13:38 Pepcid SLOW IVP 20 mg Q12H PRN Administration Indigestion Fentanyl 12.5 mcg 07/18/19 16:43 07/19/19 13:38 Sublimaze SLOW IVP 12.5 mcg Q4H PRN Administration Moderate to Severe Pain (6-10) Gabapentin 300 mg 07/18/19 17:00 07/19/19 13:38 Neurontin PO 300 mg QID [facility] Administration Levothyroxine Sodium 200 mcg 07/19/19 06:00 07/19/19 05:42 Synthroid PO 200 mcg 0600 [facility] Administration Nicotine 7 mg 07/18/19 18:00 07/18/19 19:08 Nicoderm Patch TD 7 mg Q24HR [facility] Administration Ondansetron HCl 4 mg 07/18/19 16:38 07/18/19 18:35 Zofran IVP 4 mg Q6H PRN Administration Nausea/Vomiting Pantoprazole Sodium 40 mg 07/18/19 21:00 07/19/19 09:26 Protonix IVP 40 mg Q12HR [facility] Administration Multivit/Folic Acid/Iron 1 tab 07/19/19 09:00 07/19/19 09:26 Vitamin PO 1 tab DAILY [facility] Administration Promethazine HCl 25 mg 07/18/19 16:36 07/19/19 05:41 Phenergan PO 25 mg Q6H PRN Administration Nausea - Exam General Appearance: NAD Eye: anicteric sclera ENT: moist mucosa Neck: supple, symmetric, no JVD, no thyromegaly, no lymphadenopathy Heart: RRR, no gallops, no rubs, normal peripheral pulses Respiratory: CTAB, no wheezes, no rales, no ronchi Gastrointestinal: soft, non-distended, normal bowel sounds, no guarding, no rigidity, tender to palpation Gastrointestinal - other findings: epigastric tenderness Extremities: no cyanosis Musculoskeletal: normal tone, normal strength Psychiatric: normal affect, normal behavior, A&O x 3 Hosp A/P - Plan - Assessment: (1) Abdominal pain Code(s): R10.9 - UNSPECIFIED ABDOMINAL PAIN Status: Acute (2) Acute on chronic stage 2 renal failure Status: Acute (3) Severe protein-calorie malnutrition Code(s): E43 - UNSPECIFIED SEVERE PROTEIN-CALORIE MALNUTRITION Status: Acute (4) Nausea & vomiting Code(s): R11.2 - NAUSEA WITH VOMITING, UNSPECIFIED Status: Acute (5) Hypercalcemia Code(s): K31.1 - ADULT HYPERTROPHIC PYLORIC STENOSIS Status: Acute (6) HTN (hypertension) Code(s): I10 - ESSENTIAL (PRIMARY) HYPERTENSION Status: Chronic (7) HLD (hyperlipidemia) Code(s): E78.5 - HYPERLIPIDEMIA, UNSPECIFIED Status: Chronic (8) Hypothyroid Code(s): E03.9 - HYPOTHYROIDISM, UNSPECIFIED Status: Chronic (9) Tobacco abuse Code(s): Z72.0 - TOBACCO USE Status: Acute (10) Pyloric stenosis Code(s): K31.1 - ADULT HYPERTROPHIC PYLORIC STENOSIS Status: Chronic - Plan: GI consult pending. Hypercalcemia improving. Ac on ch renal failure inproving. Diet as tolerated PRN medications for N/v Pain control Nicotine patch HTN controlled. Pt is on PPN. May need TPN (and PICC line) depending on procedures to alleviate pyloric stenosis.
[2019-07-19] MEDS: Nicotine 7 MG PATCH TD SCH (17:50)
--- NOTE | 2019-07-19 19:56 | RAD ---
ABDOMEN ONE VIEW: 07/19/19 HISTORY: NG tube placemen. FINDINGS: Portable upright radiograph of the abdomen demonstrates NG tube terminating in the left upper quadran t, presumed to be in the stomach. There is residual oral contrast in the colon. No pneumoperitoneum. IMPRESSION: Nasogastric tube terminating in the stomach. POS: PPP
[2019-07-19] MEDS ORDERED: Ketorolac Tromethamine 30 MG/ML VIAL IVP SCH (20:30)
--- NOTE | 2019-07-19 20:42 | CON ---
DATE OF CONSULTATION: 07/19/2019 CHIEF COMPLAINT: Abdominal pain. HISTORY OF PRESENT ILLNESS: Ms. Lafleur is a 44-year-old woman, who has been followed by Dr. Ruiz for chronic pyloric channel ulcer and stenosis. Ms. Lafleur has had recurrent nausea and vomiting related to this and Dr. Ruiz has performed balloon dilation to the pyloric stenosis on two occasions. She did have significant disruption of the mucosa with the dilations up to 14 mm. However, she has returned with same symptoms and on followup exam, the stenosis appeared no better. She has continued to have pain with eating and periodic nausea and vomiting. She has not vomited in the last four days, but she has taken no solid food either. She also has pain and discomfort with liquids, but less than with solids. She has had no diarrhea or blood in the stool or constipation. She has lost 20 pounds in the last 2 weeks. She has lost 50 pounds in the last 6 months. She has smoked up to a couple of packs per day in the past, but states that she quit four days ago. The only thing really makes her feel better is to scroll up in the position. Her pain is a severe pressure type pain, it is 9/10, radiates to her back and across the upper abdomen in a band. She has had cough for the last couple of days, which has been nonproductive. PAST MEDICAL HISTORY: Hypertension, hyperlipidemia, hypothyroidism, pyloric stenosis, peptic ulcer, gastroesophageal reflux. PAST SURGICAL HISTORY: Appendectomy, hysterectomy, knee surgery, neck surgery with anterior approach, back surgery. She has had EGD with pyloric balloon dilation by Dr. Ruiz. FAMILY HISTORY: Negative for GI malignancy in her mother side. Her father side is not known. SOCIAL HISTORY: Prior two packs per day smoker. She has slowly decreased this and has had no cigarettes for the last four days. No alcohol use. No drug use. ALLERGIES: MORPHINE. MEDICATIONS: Prior to admission: 1. Dexilant 60 mg daily. 2. Cymbalta. 3. Gabapentin. 4. Promethazine. 5. vitamin. 6. Oral B12. 7. Acetaminophen with codeine. 8. Topiramate. REVIEW OF SYSTEMS: Negative x10 systems reviewed except as stated in the history of present illness. PHYSICAL EXAMINATION: VITAL SIGNS: Temperature 97.6, pulse 88, and blood pressure 123/65. GENERAL: She is in no acute distress. Alert and oriented x3. HEENT: Eyes have no scleral icterus. Oropharynx is clear without lesions. No cervical or supraclavicular lymphadenopathy. LUNGS: Clear to auscultation bilaterally. HEART: Regular rate and rhythm without murmur. ABDOMEN: Soft. She is tender in the upper abdomen with deeper palpation without guarding. Her bowel sounds are present. EXTREMITIES: No lower extremity edema. Cranial nerves are grossly intact. LABORATORY DATA: White blood cell count 9.6, hemoglobin 11.9 down from 13.8 yesterday after hydration, platelets 7.9. Creatinine 1.15, down from 1.34 yesterday. Her baseline creatinine is closer to 0.7. Calcium 11.7 today, down from 13.5 yesterday. Previously, her calcium levels have been normal. Bilirubin 0.2, AST 21, ALT 7, alkaline phosphatase 93, albumin 4.7, lipase 15. IMAGING DATA: She had a CT scan of the abdomen and pelvis that showed some contrast material in the stomach with decompressed small bowel and colon. IMPRESSION: 1. Chronic pyloric stenosis which has failed endoscopic balloon dilation and has been associated with ongoing pain and nausea and vomiting and associated 50 pounds weight loss over the last 6 months and 20 pounds weight loss over the last 2 weeks. She has been unable to eat anything over the last four days. 2. History of heavy smoking. She states that she quit four days ago. She is encouraged to remain off all tobacco given the pyloric stenosis and need to heal any surgical anastomosis. 3. Hypercalcemia. I think this is likely from the severe dehydration that she presented with. Given the chronic pyloric stenosis and hypercalcemia, I will check a fasting gastrin level and a parathyroid hormone to screen for type 1, however, this is not likely. RECOMMENDATIONS: 1. I have consulted General Surgery, Dr. Castaneda. He will evaluate to consider the possibility of a gastrojejunostomy. 2. She will remain off smoking. 3. IV pantoprazole. 4. Check a fasting gastrin level and parathyroid hormone level. 5. NG tube placement. Job ID: [id number]
[2019-07-20] MEDS: Fentanyl 100 MCG/2 ML VIAL SLOW IVP PRN ×5 (01:49→23:47)
[2019-07-20] MEDS: D5W-AA 4.25% with LYTES 1,000 ML BAG IV SCH (01:50)
--- NOTE | 2019-07-20 03:05 | CON ---
DATE OF CONSULTATION: SUBJECTIVE: 44-year-old female who has lost 50 pounds in the last 4 months. She has had gastric outlet obstruction, failing endoscopic dilatation on 2 different occasions months past. She is admitted on this occasion, and I have been asked to see her by Dr. Small. CT scan of the abdomen and pelvis obtained this admission yesterday revealed retained gastric secretions consistent with gastric outlet obstruction. Otherwise, no significant abnormality. Gastric biopsies from 03/13/2017 and 02/24/2019 revealed gastritis. No H. pylori. Plan is for general anesthesia TAP block tomorrow with laparotomy and Imer-en-Y gastrojejunostomy. She understands risks and benefits, consents. ALLERGIES: MORPHINE CAUSES HIVES, TOBACCO 1 TO 2 PACKS PER DAY, BUT HAS NOT SMOKED IN 2 WEEKS, MORE THAN 1 TO 4 CIGARETTES A DAY. PAST SURGICAL HISTORY: Total abdominal hysterectomy, bilateral salpingo-oophorectomy, appendectomy, cervical spine surgery on one occasion, two lumbar surgeries. MEDICATIONS: At home, promethazine, vitamins, gabapentin, Dexilant, Cymbalta, Tylenol with codeine. PAST MEDICAL HISTORY: Weight loss, malnutrition, history of peptic ulcer disease, GERD obstruction. REVIEW OF SYSTEMS: Noncontributory. PHYSICAL EXAMINATION: VITAL SIGNS: Height 5 feet 5 inches, 108 pounds, BMI 18. Temperature 97.6 degrees, heart rate 88, blood pressure 123/65. HEAD, EARS, EYES, NOSE, AND THROAT: Unremarkable. LUNGS: Clear to auscultation. CARDIAC: Regular rate and rhythm. No murmur or gallop. ABDOMEN: Soft. NG tube in place. Nontender. No masses. EXTREMITIES: Unremarkable. LABORATORY DATA: White count 9, hemoglobin 11. Basic metabolic profile normal. Calcium returned to normal from 13 to 11.7 after hydration. PTH hormone ordered, intact, is low at 12.8. ASSESSMENT AND PLAN: 1. Gastric outlet obstruction. Would recommend laparotomy, general anesthesia TAP block with Imer-en-Y gastrojejunostomy. She understands risks and benefits, consents. 2. Tobacco abuse, also markedly cut down over the last 2 weeks. 3. Weight loss, malnutrition. Job ID: [id number]
[2019-07-20] MEDS: DULoxetine 60 MG CAP PO SCH ×2 (08:38→21:18)
[2019-07-20] MEDS: Gabapentin 300 MG CAP PO SCH ×5 (08:38→21:26)
[2019-07-20] MEDS: Enoxaparin Sodium 40 MG/0.4 ML SYRINGE SC SCH (08:39)
[2019-07-20] MEDS: Pantoprazole 40 MG VIAL IVP SCH ×2 (08:40→21:18)
[2019-07-20] MEDS ORDERED: EPHEDRINE 25 MG/5 ML SYRINGE ONE (10:21)
[2019-07-20] MEDS ORDERED: Dexamethasone 20 MG/5 ML VIAL ONE (10:21)
[2019-07-20] MEDS ORDERED: Lidocaine 1% PF 5 ML VIAL ONE (10:21)
[2019-07-20] MEDS ORDERED: PROPOFOL 200 MG/20 ML VIAL ONE (10:21)
[2019-07-20] MEDS ORDERED: Ondansetron PF 4 MG/2 ML Vial ONE (10:21)
[2019-07-20] MEDS ORDERED: Rocuronium Bromide 10 MG/ML (10ML VIAL) ONE (10:21)
[2019-07-20] MEDS ORDERED: Glycopyrrolate 0.2 MG/ML 5 ML SYRINGE ONE (10:21)
[2019-07-20] MEDS ORDERED: Bupivacaine HCl 0.5%/Epinephrine 1:200,000/PF 30 ml Vial ONE (10:21)
[2019-07-20] MEDS ORDERED: Fentanyl 100 MCG/2 ML VIAL ONE ×4 (12:44→19:04)
[2019-07-20] MEDS ORDERED: Midazolam HCl 2 mg/2 ml Vial ONE ×2 (12:44→14:41)
[2019-07-20] MEDS ORDERED: Levofloxacin 500 mg/D5W 100 ml Premix Bag ONE (14:37)
[2019-07-20] MEDS ORDERED: Ketorolac Tromethamine 30 MG/ML VIAL ONE (14:37)
--- NOTE | 2019-07-20 14:48 | PDOC.HOSPP ---
- Subjective Encounter Date: 07/20/19 Encounter Time: 10:30 Subjective: pt up in bed no complains - Objective Vital Signs & Weight: Vital Signs (12 hours) Temp Pulse Resp BP Pulse Ox 07/20/19 11:44 97.8 F 83 16 126/72 93 L 07/20/19 07:31 97.9 F 79 18 137/71 94 L 07/20/19 07:10 94 L 07/20/19 03:17 97.5 F L 78 18 126/76 95 Weight Admit Weight 108 lb 14.4 oz Weight 107 lb 3.2 oz I&O: 07/19/19 07/20/19 07/21/19 06:59 06:59 06:59 Intake Total 1050 1886 Output Total 200 Balance 1050 1686 Result Diagrams: 07/19/19 04:10 07/19/19 04:10 Hospitalist ROS - Review of Systems Respiratory: denies: cough, dry, shortness of breath, hemoptysis, SOB with excertion, pleuritic pain, sputum, wheezing, other Cardiovascular: denies: chest pain, palpitations, orthopnea, paroxysmal noc. dyspnea, edema, light headedness, other Gastrointestinal: denies: nausea, vomiting, abdominal pain, diarrhea, constipation, melena, hematochezia, other - Medication Medications: Active Medications Generic Name Dose Route Start Last Admin Trade Name Freq PRN Reason Stop Dose Admin Amino Acids/Electrolytes/Dextrose 1,000 ml 07/18/19 16:45 07/20/19 01:50 Clinimix E 4.25/5 IV 1,000 ml INF JM Administration Duloxetine HCl 60 mg 07/18/19 21:00 07/20/19 08:38 Cymbalta PO 60 mg BID JM Administration Enoxaparin Sodium 40 mg 07/19/19 09:00 07/20/19 08:39 Lovenox SC Not Given 0900 JM Famotidine 20 mg 07/18/19 16:38 07/19/19 13:38 Pepcid SLOW IVP 20 mg Q12H PRN Administration Indigestion Fentanyl 12.5 mcg 07/18/19 16:43 07/20/19 12:27 Sublimaze SLOW IVP 12.5 mcg Q4H PRN Administration Moderate to Severe Pain (6-10) Gabapentin 300 mg 07/18/19 17:00 07/20/19 13:43 Neurontin PO Not Given QID JM Nicotine 7 mg 07/18/19 18:00 07/19/19 17:50 Nicoderm Patch TD 7 mg Q24HR JM Administration Ondansetron HCl 4 mg 07/18/19 16:38 07/18/19 18:35 Zofran IVP 4 mg Q6H PRN Administration Nausea/Vomiting Pantoprazole Sodium 40 mg 07/18/19 21:00 07/20/19 08:40 Protonix IVP 40 mg Q12HR JM Administration - Exam Neck: negative: supple, symmetric, no JVD, no thyromegaly, no lymphadenopathy, no carotid bruit, JVD Heart: negative: RRR, no murmur, no gallops, no rubs, normal peripheral pulses, irregular, diminshed peripheral pulses, murmur present, II/IV, III/IV Respiratory: negative: CTAB, no wheezes, no rales, no ronchi, normal chest expansion, no tachypnea, normal percussion, rales, rhonchi, tachypneic, wheezes Gastrointestinal: negative: soft, non-tender, non-distended, normal bowel sounds , no palpable masses, no hepatomegaly, no splenomegaly, no bruit, no guarding, no rigidity, tender to palpation, distended, diminished bowl sounds, voluntary guarding Hosp A/P (1) KORINA (acute kidney injury) Code(s): N17.9 - ACUTE KIDNEY FAILURE, UNSPECIFIED Status: Acute (2) Abdominal pain Code(s): R10.9 - UNSPECIFIED ABDOMINAL PAIN Status: Acute (3) HLD (hyperlipidemia) Code(s): E78.5 - HYPERLIPIDEMIA, UNSPECIFIED Status: Acute (4) HTN (hypertension) Code(s): I10 - ESSENTIAL (PRIMARY) HYPERTENSION Status: Acute (5) Nausea & vomiting Code(s): R11.2 - NAUSEA WITH VOMITING, UNSPECIFIED Status: Acute (6) Pyloric stenosis Code(s): K31.1 - ADULT HYPERTROPHIC PYLORIC STENOSIS Status: Acute (7) Severe protein-calorie malnutrition Code(s): E43 - UNSPECIFIED SEVERE PROTEIN-CALORIE MALNUTRITION Status: Acute (8) Hypercalcemia Code(s): E83.52 - HYPERCALCEMIA Status: Acute - Plan will continue ppn for now. Pt going for laparotomy today. Hypercalcemia improved.
[2019-07-20] MEDS ORDERED: Sodium Chloride 0.9% 20 ML ONE (16:42)
[2019-07-20] MEDS ORDERED: Promethazine HCl 25 MG/ML VIAL SLOW IVP PRN (17:43)
[2019-07-20] MEDS ORDERED: Promethazine HCl 25 MG/ML VIAL ONE (18:32)
[2019-07-20] MEDS ORDERED: Fentanyl 100 MCG/2 ML VIAL SLOW IVP PRN (18:50)
[2019-07-20] MEDS ORDERED: Ketorolac Tromethamine 30 MG/ML VIAL IVP SCH (19:00)
--- NOTE | 2019-07-20 19:10 | RAD ---
XR Chest 1 View Portable History: Central line placement Comparison: None. Findings: An enteric tube is in place with tip in the gastric body. Left subclavian central venous ca theter tip projects over the cavoatrial junction. No pneumothorax is appreciated. No acute osseous abnormality. Impression: Uncomplicated left subclavian central venous catheter placement.
[2019-07-20] MEDS: Nicotine 7 MG PATCH TD SCH (20:16)
[2019-07-20] MEDS: Lactated Ringer's 1,000 ML IV SCH (20:16)
[2019-07-20] MEDS: Fluconazole In NaCl,Iso-Osm 200 MG in Premix Bag 1 BAG IVPB SCH (21:18)
--- NOTE | 2019-07-21 02:15 | OP ---
DATE OF PROCEDURE: 07/20/2019 PREOPERATIVE DIAGNOSES: Gastric outlet obstruction refractory to pyloric dilatation, weight loss, poor IV access, malnutrition. POSTOPERATIVE DIAGNOSES: Gastric outlet obstruction refractory to pyloric dilatation, weight loss, poor IV access, malnutrition. PROCEDURE PERFORMED: Left subclavian vein central line, laparotomy, Imer-en-Y gastrojejunostomy, 45 cm Imer limb. ANESTHESIA: General, TAP block, antecolic Imer limb. DESCRIPTION OF PROCEDURE: The patient was taken to the operating room where under general anesthesia, the left subclavian vein was prepared with ChloraPrep and draped in routine fashion. Seldinger technique used to place a triple-lumen catheter, securing it with 3-0 silk, removing the J-wire, placing a sterile dressing, aspirating each port of blood and flushing with a saline solution. Sterile dressing applied. Abdomen was prepared with ChloraPrep and draped in routine fashion. Midline upper abdominal incision made from below the xiphoid to above the umbilicus, carried down to skin, subcutaneous tissue, midline fascia, and abdominal cavity sharply. There was omental adhesions to the anterior abdominal wall taken down with a cautery. The pylorus was palpated. I do not see a lot of scar tissue. NG tube is in proper position. Just PDS pop off, cautery and tagged. Once these were taken down, colon reflected cephalad about 8 inches from the ligament of Treitz. The small bowel divided with a PAPI stapler. Mesentery slightly divided with a LigaSure, mobilized 45 cm Imer limb measured and a jejunojejunostomy formed approximating the antimesenteric borders of this biliary limb and Imer limb small bowel with 3-0 Lembert sutures. Common enterotomy made and a 55 mm PAPI stapler used to create the jejunostomy and a common defect closed with another fire of the PAPI stapler transversely. Mesenteric defect closed with 3-0 silk sutures. Imer limb brought antecolic after splitting the scant omentum to the distal greater curvature of the stomach. The small bowel approximated to the greater curvature of the stomach with 3-0 silk Lembert sutures and then a gastrotomy and enterotomy made and the gastrojejunostomy created with a 55 PAPI stapler and a common defect closed with another fire of the PAPI stapler and staple line inverted with interrupted Lembert suture of 3-0 silk, anastomosis palpated. Sponge and needle counts were correct. Midline fascia closed with continuous suture of #1 PDS, skin with osvaldo. Sterile dressing applied. Job ID: [id number]
[2019-07-21] MEDS: Fentanyl 100 MCG/2 ML VIAL SLOW IVP PRN ×5 (03:09→13:28)
[2019-07-21 04:22] LABS: #Lymphocytes 0.8 thou/uL (1.20-3.40); #Monocytes 0.1 thou/uL (0.11-0.59); #Neutrophils 8.7 thou/uL (1.40-6.50); %Basophils 0.3 % (0.0-1.0); %Eosinophils 0.1 % (0.0-10.0); %Lymphocytes 8.1 % (21.0-51.0); %Monocytes 1.2 % (0.0-10.0); %Neutrophils 90.4 % (42.0-75.0); Hemoglobin 10.2 g/dL (12.0-16.0); Mean Corpuscular Hemoglobin 28.5 pg (27.0-31.0); Mean Corpuscular Volume 91.8 fL (78.0-98.0); Mean Platelet Volume 7.5 fL (7.4-10.4); Platelet Count 238 thou/uL (130-400); RBC Distribution Width 14.3 % (11.5-14.5); Red Blood Cell (RBC) Count 3.59 mill/uL (4.20-5.40); White Blood Cell (WBC) Count 9.6 thou/uL (4.8-10.8)
[2019-07-21] MEDS: Lactated Ringer's 1,000 ML IV SCH ×5 (04:44→18:37)
[2019-07-21 05:41] LABS: ALT (SGPT) Less than 7 U/L (8-55); AST (SGOT) 17 U/L (5-34); Albumin 3.6 g/dL (3.5-5.0); Alkaline Phosphatase 61 U/L (40-110); Anion Gap 12 mmol/L (10-20); BUN (Urea Nitrogen) 25 mg/dL (7.0-18.7); Bilirubin, Total 0.2 mg/dL (0.2-1.2); Calc. Creatinine Clearance 60 mL/min (70-130); Calcium 8.5 mg/dL (7.8-10.44); Carbon Dioxide 25 mmol/L (22-29); Chloride 102 mmol/L (98-107); Estimated GFR-MDRD 67; Globulin 2.8 g/dL (2.4-3.5); Glucose 102 mg/dL (70-105); Potassium 4.3 mmol/L (3.5-5.1); Protein, Total 6.4 g/dL (6.0-8.3); Sodium 135 mmol/L (136-145)
[2019-07-21] MEDS: Ondansetron PF 4 MG/2 ML Vial IVP PRN ×4 (06:12→23:47)
[2019-07-21] MEDS: Gabapentin 300 MG CAP PO SCH ×3 (08:20→17:03)
[2019-07-21] MEDS: DULoxetine 60 MG CAP PO SCH ×2 (08:20→20:55)
[2019-07-21] MEDS: Pantoprazole 40 MG VIAL IVP SCH ×2 (08:33→20:20)
[2019-07-21] MEDS: Enoxaparin Sodium 40 MG/0.4 ML SYRINGE SC SCH (08:33)
[2019-07-21] MEDS ORDERED: Ketorolac Tromethamine 30 MG/ML VIAL IVP PRN ×2 (13:34→14:52)
[2019-07-21] MEDS ORDERED: diphenhydrAMINE 50 MG/ML VIAL IM/IV PRN (14:52)
[2019-07-21] MEDS ORDERED: Naloxone HCl 0.4 mg/ml Vial IV PRN (14:52)
[2019-07-21] MEDS ORDERED: diphenhydrAMINE 25 MG CAP PO PRN (14:52)
[2019-07-21] MEDS ORDERED: Promethazine HCl 25 MG/ML VIAL IM PRN (14:52)
[2019-07-21] MEDS: fentaNYL Citrate/PF 2,000 MCG in Sodium Chloride 0.9% 60 ML IV PRN (15:06)
--- NOTE | 2019-07-21 15:15 | PDOC.HOSPP ---
- Subjective Encounter Date: 07/21/19 Encounter Time: 13:00 Subjective: pt up in bed complains of pain to her abdomen. she feels that her pain meds are not lasting long. - Objective Vital Signs & Weight: Vital Signs (12 hours) Temp Pulse Resp BP Pulse Ox 07/21/19 11:17 98.2 F 73 16 158/92 H 96 07/21/19 08:30 99 07/21/19 07:09 97.9 F 67 18 136/90 99 07/21/19 03:41 97.6 F 76 18 127/75 96 Weight Admit Weight 108 lb 14.4 oz Weight 107 lb 3.2 oz I&O: 07/20/19 07/21/19 07/22/19 06:59 06:59 06:59 Intake Total 1886 50 Output Total 200 250 100 Balance 1686 -200 -100 Result Diagrams: 07/21/19 04:10 07/21/19 04:10 Hospitalist ROS - Review of Systems Respiratory: denies: cough, dry, shortness of breath, hemoptysis, SOB with excertion, pleuritic pain, sputum, wheezing, other Cardiovascular: denies: chest pain, palpitations, orthopnea, paroxysmal noc. dyspnea, edema, light headedness, other Gastrointestinal: denies: nausea, vomiting, abdominal pain, diarrhea, constipation, melena, hematochezia, other - Medication Medications: Active Medications Generic Name Dose Route Start Last Admin Trade Name Freq PRN Reason Stop Dose Admin Amino Acids/Electrolytes/Dextrose 1,000 ml 07/18/19 16:45 07/20/19 01:50 Clinimix E 4.25/5 IV 1,000 ml INF JM Administration Duloxetine HCl 60 mg 07/18/19 21:00 07/21/19 08:20 Cymbalta PO Not Given BID JM Enoxaparin Sodium 40 mg 07/19/19 09:00 07/21/19 08:33 Lovenox SC 40 mg 0900 JM Administration Gabapentin 300 mg 07/18/19 17:00 07/21/19 12:43 Neurontin PO Not Given QID JM Fluconazole/Sodium Chloride 100 mls @ 100 mls/hr 07/20/19 21:00 07/20/19 21: 18 200 mg/ Device IVPB 100 mls 2100 JM Administration Lactated Ringer's 1,000 mls @ 120 mls/hr 07/20/19 19:00 07/21/19 13:39 Lactated Ringer's IV 1,000 mls .[id number] JM Administration Fentanyl Citrate 2,000 mcg/ 100 mls @ 0 mls/hr 07/21/19 14:52 07/21/19 15:06 Sodium Chloride IV 100 mls INF PRN Administration Pain As Directed Nicotine 7 mg 07/18/19 18:00 07/20/19 20:16 Nicoderm Patch TD Not Given Q24HR JM Pantoprazole Sodium 40 mg 07/18/19 21:00 07/21/19 08:33 Protonix IVP 40 mg Q12HR JM Administration - Exam Neck: negative: supple, symmetric, no JVD, no thyromegaly, no lymphadenopathy, no carotid bruit, JVD Heart: negative: RRR, no murmur, no gallops, no rubs, normal peripheral pulses, irregular, diminshed peripheral pulses, murmur present, II/IV, III/IV Respiratory: negative: CTAB, no wheezes, no rales, no ronchi, normal chest expansion, no tachypnea, normal percussion, rales, rhonchi, tachypneic, wheezes Gastrointestinal: negative: soft, non-tender, non-distended, normal bowel sounds , no palpable masses, no hepatomegaly, no splenomegaly, no bruit, no guarding, no rigidity, tender to palpation, distended, diminished bowl sounds, voluntary guarding Hosp A/P (1) KORINA (acute kidney injury) Code(s): N17.9 - ACUTE KIDNEY FAILURE, UNSPECIFIED Status: Acute (2) Abdominal pain Code(s): R10.9 - UNSPECIFIED ABDOMINAL PAIN Status: Acute (3) HLD (hyperlipidemia) Code(s): E78.5 - HYPERLIPIDEMIA, UNSPECIFIED Status: Acute (4) HTN (hypertension) Code(s): I10 - ESSENTIAL (PRIMARY) HYPERTENSION Status: Acute (5) Nausea & vomiting Code(s): R11.2 - NAUSEA WITH VOMITING, UNSPECIFIED Status: Acute (6) Pyloric stenosis Code(s): K31.1 - ADULT HYPERTROPHIC PYLORIC STENOSIS Status: Acute (7) Severe protein-calorie malnutrition Code(s): E43 - UNSPECIFIED SEVERE PROTEIN-CALORIE MALNUTRITION Status: Acute (8) Hypercalcemia Code(s): E83.52 - HYPERCALCEMIA Status: Acute - Plan will continue ppn for now. Pt going for laparotomy today. Hypercalcemia improved. 07/21 toradol added for pain. s/p renaldo-en-y on 07/20. pt has ng tube will monitor electrolytes. on dvt ppx.
--- NOTE | 2019-07-21 15:40 | PRG ---
DATE OF SERVICE: 07/21/2019 SUBJECTIVE: Ms. Lafleur is feeling a lot better today following surgery yesterday. She still has a nasogastric tube in place, but is clamped. She is not nauseated at this point. She is having postoperative epigastric pain, which is not worsening. [employer] has been ordered. She has passed some gas, though no bowel movements. PHYSICAL EXAMINATION: VITAL SIGNS: Temperature 98.2, pulse 73, blood pressure 158/92, and 96% oxygen saturation on room air. GENERAL: No acute distress, sitting up in bed comfortably. HEART: Regular rate and rhythm. LUNGS: Clear to auscultation bilaterally. ABDOMEN: Flat. Midline incision looks good and is well dressed. Bowel sounds are present. The abdomen is soft. Some diffuse tenderness to palpation, but no guarding or rebound tenderness. EXTREMITIES: No peripheral edema. LABORATORY STUDIES: WBC down to 9.6, hemoglobin 10.2, and platelets 238. Sodium 135, potassium 4.3, BUN 25, creatinine 0.90, calcium is normalized now down to 8.5, and glucose 102. LFTs all normal with total bilirubin 0.2 alkaline phosphatase 61, AST 17, and ALT less than 7. PTH came back 12.8. IMAGING STUDIES: Chest x-ray from yesterday evening showed left subclavian vein in good position. Enteric tube with tip in the gastric body. No pneumothorax. ASSESSMENT AND PLAN: 1. Gastric outlet obstruction secondary to pyloric ulcers, refractory to endoscopic dilation in February and May 2019. 2. Postoperative day 1, status post Imer-en-Y gastrojejunostomy. 3. Abdominal pain, postoperative. 4. Hypercalcemia, appears secondary to dehydration, now resolved. The patient appears to be doing well following her procedure yesterday. Dietary advancement at the discretion of the surgical service. Note, she had resolution of her electrolyte abnormalities upon presentation. The patient will need to continue on high-dose acid suppression. She is on Protonix 40 mg IV q.12 h. here. On hospital discharge, continue with Dexilant 60 mg daily. We will plan to follow her up in GI Clinic in a few weeks, and likely plan for repeat upper endoscopy for visualization in a couple of months. Please call anytime with questions or concerns. Job ID: [id number]
[2019-07-21] MEDS: Nicotine 7 MG PATCH TD SCH (17:58)
--- NOTE | 2019-07-21 19:17 | PRG ---
DATE OF SERVICE: 07/21/2019 SUBJECTIVE: Sharmin Lafleur is doing well one day postop Imer-en-Y antecolic gastrojejunostomy for gastric outlet obstruction. The patient is doing fairly well. Pain control is poor and DRILLER AND BROACHER will be ordered. OBJECTIVE: VITAL SIGNS: Temperature 98.1 degrees, pulse 70, and blood pressure 137/88. LUNGS: Clear to auscultation. CARDIAC: Regular rate and rhythm without murmur or gallop. ABDOMEN: Soft. NG tube present. EXTREMITIES: Unremarkable. LABORATORY DATA: White count 9 and hemoglobin 10. Basic metabolic profile unremarkable. Gastric drainage 300 mL. ASSESSMENT AND PLAN: Doing well after Imer-en-Y gastrojejunostomy antecolic for gastric outlet obstruction. Continue NG tube. Check Gastrografin swallow in the morning for gastric emptying to see if we could remove the NG tube. Overall, she is doing well. She states she feels better than preoperatively. Job ID: [id number]
[2019-07-21] MEDS: Fluconazole In NaCl,Iso-Osm 200 MG in Premix Bag 1 BAG IVPB SCH (20:10)
[2019-07-22] MEDS: Zolpidem Tartrate 5 MG TAB PO PRN ×2 (01:21→20:45)
[2019-07-22] MEDS: fentaNYL Citrate/PF 2,000 MCG in Sodium Chloride 0.9% 60 ML IV PRN ×2 (05:39→22:14)
[2019-07-22] MEDS: Ondansetron PF 4 MG/2 ML Vial IVP PRN ×3 (07:08→20:57)
[2019-07-22] MEDS: Pantoprazole 40 MG VIAL IVP SCH ×2 (09:28→20:45)
[2019-07-22] MEDS: Enoxaparin Sodium 40 MG/0.4 ML SYRINGE SC SCH (09:28)
[2019-07-22] MEDS ORDERED: MD-Gastroview 120 ML BOT ONE (09:30)
[2019-07-22] MEDS: DULoxetine 60 MG CAP PO SCH ×2 (09:32→20:45)
--- NOTE | 2019-07-22 11:08 | RAD ---
Upper GI HISTORY: Abdominal pain. Recent gastrojejunostomy surgery. FINDINGS: Nasogastric tube is in place. Pneumoperitoneum from recent abdominal surgery. Significant residual contrast was present within the colon. Small amount of Gastrografin shows postoperative changes of the stomach consistent with recent gastro jejunostomy. There is markedly decreased peristalsis of the stomach. Lobular filling defects of the stomach are mo st pronounced at the gastric antrum and extending inferiorly towards the site of the gastrojejunostomy. With the filling defects along the lower margin of the greater curvature, it initi ally looked like there was some emptying of contrast from the stomach into the jejunum. Delayed images, however, showed most of the contrast remaining in the stomach. Suture row is now seen more in feriorly and lateral to the expected location. When reevaluating the fluoroscopic exam with the delayed radiographs, it appears that there has not been significant emptying of contrast. Fluoroscopy time 1.4 minutes. IMPRESSION: Postoperative changes of the stomach with severe hypomotility and persistent high-grade o utlet obstruction, possibly due to edema.
--- NOTE | 2019-07-22 14:06 | PDOC.HOSPP ---
- Subjective Encounter Date: 07/22/19 Encounter Time: 10:30 Subjective: pt up in bed no complains. she is now on a pain pump. - Objective Vital Signs & Weight: Vital Signs (12 hours) Temp Pulse Resp BP Pulse Ox 07/22/19 11:00 98.1 F 73 14 108/67 92 L 07/22/19 09:28 97 07/22/19 07:30 98.4 F 75 14 105/69 97 07/22/19 04:00 98.1 F 73 18 124/72 93 L Weight Admit Weight 108 lb 14.4 oz Weight 107 lb 3.2 oz I&O: 07/21/19 07/22/19 07/23/19 06:59 06:59 06:59 Intake Total 50 150 Output Total 250 950 Balance -200 -800 Result Diagrams: 07/21/19 04:10 07/21/19 04:10 Hospitalist ROS - Review of Systems Cardiovascular: denies: chest pain, palpitations, orthopnea, paroxysmal noc. dyspnea, edema, light headedness, other Gastrointestinal: denies: nausea, vomiting, abdominal pain, diarrhea, constipation, melena, hematochezia, other Genitourinary: denies: dysuria, frequency, incontinence, hematuria, retention, other - Medication Medications: Active Medications Generic Name Dose Route Start Last Admin Trade Name Freq PRN Reason Stop Dose Admin Amino Acids/Electrolytes/Dextrose 1,000 ml 07/18/19 16:45 07/20/19 01:50 Clinimix E 4.25/5 IV 1,000 ml INF JM Administration Duloxetine HCl 60 mg 07/18/19 21:00 07/22/19 09:32 Cymbalta PO Not Given BID JM Enoxaparin Sodium 40 mg 07/19/19 09:00 07/22/19 09:28 Lovenox SC 40 mg 0900 JM Administration Fluconazole/Sodium Chloride 100 mls @ 100 mls/hr 07/20/19 21:00 07/21/19 20: 10 200 mg/ Device IVPB 100 mls 2100 JM Administration Fentanyl Citrate 2,000 mcg/ 100 mls @ 0 mls/hr 07/21/19 14:52 07/22/19 05:39 Sodium Chloride IV 100 mls INF PRN Administration Pain As Directed Lactated Ringer's 1,000 mls @ 40 mls/hr 07/21/19 18:24 07/21/19 18:37 Lactated Ringer's IV Not Given .Q24H JM Nicotine 7 mg 07/18/19 18:00 07/21/19 17:58 Nicoderm Patch TD 7 mg Q24HR JM Administration Ondansetron HCl 4 mg 07/21/19 14:52 07/22/19 13:31 Zofran IVP 4 mg Q6H PRN Administration Nausea/Vomiting Pantoprazole Sodium 40 mg 07/18/19 21:00 07/22/19 09:28 Protonix IVP 40 mg Q12HR JM Administration Zolpidem Tartrate 5 mg 07/21/19 14:52 07/22/19 01:21 Ambien PO 5 mg HSPRN PRN Administration Insomnia - Exam Heart: negative: RRR, no murmur, no gallops, no rubs, normal peripheral pulses, irregular, diminshed peripheral pulses, murmur present, II/IV, III/IV Respiratory: negative: CTAB, no wheezes, no rales, no ronchi, normal chest expansion, no tachypnea, normal percussion, rales, rhonchi, tachypneic, wheezes Gastrointestinal: negative: soft, non-tender, non-distended, normal bowel sounds , no palpable masses, no hepatomegaly, no splenomegaly, no bruit, no guarding, no rigidity, tender to palpation, distended, diminished bowl sounds, voluntary guarding Gastrointestinal - other findings: abdomen incision intact Extremities: negative: no cyanosis, no clubbing, no edema, 1+ LE edema, 2+ LE edema, clubbing Hosp A/P (1) KORINA (acute kidney injury) Code(s): N17.9 - ACUTE KIDNEY FAILURE, UNSPECIFIED Status: Acute (2) Abdominal pain Code(s): R10.9 - UNSPECIFIED ABDOMINAL PAIN Status: Acute (3) HLD (hyperlipidemia) Code(s): E78.5 - HYPERLIPIDEMIA, UNSPECIFIED Status: Acute (4) HTN (hypertension) Code(s): I10 - ESSENTIAL (PRIMARY) HYPERTENSION Status: Acute (5) Nausea & vomiting Code(s): R11.2 - NAUSEA WITH VOMITING, UNSPECIFIED Status: Acute (6) Pyloric stenosis Code(s): K31.1 - ADULT HYPERTROPHIC PYLORIC STENOSIS Status: Acute (7) Severe protein-calorie malnutrition Code(s): E43 - UNSPECIFIED SEVERE PROTEIN-CALORIE MALNUTRITION Status: Acute (8) Hypercalcemia Code(s): E83.52 - HYPERCALCEMIA Status: Acute - Plan will continue ppn for now. Pt going for laparotomy today. Hypercalcemia improved. 07/21 toradol added for pain. s/p renaldo-en-y on 07/20. pt has ng tube will monitor electrolytes. on dvt ppx. 07/22 pt will need to be on dexilant on discharge per GI recommendation. she is currently on protonix. pt to have a upper gi series. she still has a ng tube. will check labs in am. Her hypercalcemia ( most likley due to dehydration) has resolved. PTh normal.
[2019-07-22] MEDS: Nicotine 7 MG PATCH TD SCH (18:40)
--- NOTE | 2019-07-22 20:05 | PRG ---
DATE OF SERVICE: 07/22/2019 SUBJECTIVE: Ms. Lafleur is doing well 2 days post antecolic Imer-en-Y gastrojejunostomy. Temperature 97.9 degrees BUSINESS [employer]SULTANT, which is very effective for her. She is appreciative for the BUSINESS [employer]SULTANT. Gastric drainage for 24 hours is 950 mL. The patient underwent a contrast study this morning and there was no effective drainage from the gastrojejunostomy probably due to postop swelling. Plan is to continue NG tube suction and repeat the upper GI on Thursday. Dr. Millan is covering the weekend. Dr. Jones is covering on Thursday, Thursday, Thursday. I will return on . The patient is urinating. Larkin removed. OBJECTIVE: LUNGS: Clear to auscultation. CARDIAC: Regular rate and rhythm without murmur or gallop. ABDOMEN: Soft. Positive bowel sounds. She has had passed flatus. LABORATORY DATA: White count 9 and hemoglobin 10.2. 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 Continue NG tube suction. Repeat abdominal x-rays tomorrow and upper GI on Thursday. If she demonstrates diminished NG tube output and better GI function perhaps this under the care of Dr. Millan early next week and under the care of Dr. Jones, she could advance her diet and remove the NG tube. We will leave that to their discretion based on clinical data. Job ID: [id number]
[2019-07-23] MEDS ORDERED: Acetaminophen 325 MG TAB PO PRN (03:51)
[2019-07-23] MEDS: Lactated Ringer's 1,000 ML IV SCH ×2 (04:38→17:57)
[2019-07-23] MEDS: Ondansetron PF 4 MG/2 ML Vial IVP PRN (04:47)
[2019-07-23] MEDS ORDERED: Furosemide 40 MG/4 ML VIAL SLOW IVP SCH (06:00)
[2019-07-23] MEDS: Enoxaparin Sodium 40 MG/0.4 ML SYRINGE SC SCH (09:13)
[2019-07-23] MEDS: Pantoprazole 40 MG VIAL IVP SCH ×2 (09:13→20:43)
[2019-07-23] MEDS: DULoxetine 60 MG CAP PO SCH ×2 (09:13→20:52)
--- NOTE | 2019-07-23 11:00 | RAD ---
KUB: HISTORY: Followup of upper GI to evaluate gastric emptying. COMPARISON: The previous upper GI study. FINDINGS: An NG tube is present in the stomach. Contrast is now completely gone from the stomach region. Some residual old barium is seen within the colon which was present on the previous study. IMPRESSION: The Gastrografin administered on the previous examination is no longer evident on this study. POS: [facility]
[2019-07-23] MEDS: Acetaminophen 650 MG Suppository PR PRN ×2 (14:15→21:59)
--- NOTE | 2019-07-23 14:24 | PDOC.HOSPP ---
- Subjective Encounter Date: 07/23/19 Encounter Time: 11:55 Subjective: pt is ambulating, NGT -- very little output, abd exam benign. suture sites looks good. latest labs ok. pt likes to drink soft drinks. - Objective Vital Signs & Weight: Vital Signs (12 hours) Temp Pulse Resp BP BP Pulse Ox 07/23/19 11:11 98.6 F 94 18 123/57 L 96 07/23/19 07:36 98.2 F 91 16 115/64 96 07/23/19 04:32 97.9 F 107 H 16 119/74 92 L Weight Admit Weight 108 lb 14.4 oz Weight 107 lb 3.2 oz I&O: 07/22/19 07/23/19 07/24/19 06:59 06:59 06:59 Intake Total 150 1568 Output Total 950 1300 Balance -800 268 Result Diagrams: 07/21/19 04:10 07/21/19 04:10 Hospitalist ROS - Medication Medications: Active Medications Generic Name Dose Route Start Last Admin Trade Name Freq PRN Reason Stop Dose Admin Acetaminophen 650 mg 07/23/19 03:51 07/23/19 04:37 Tylenol PO 650 mg Q6H PRN Administration Fever/Mild Pain Acetaminophen 650 mg 07/23/19 10:17 07/23/19 14:15 Tylenol GA 650 mg Q4H PRN Administration Headache/Fever or Pain Amino Acids/Electrolytes/Dextrose 1,000 ml 07/18/19 16:45 07/20/19 01:50 Clinimix E 4.25/5 IV 1,000 ml INF JM Administration Duloxetine HCl 60 mg 07/18/19 21:00 07/23/19 09:13 Cymbalta PO Not Given BID JM Enoxaparin Sodium 40 mg 07/19/19 09:00 07/23/19 09:13 Lovenox SC 40 mg 0900 JM Administration Fentanyl Citrate 2,000 mcg/ 100 mls @ 0 mls/hr 07/21/19 14:52 07/22/19 22:14 Sodium Chloride IV 100 mls INF PRN Administration Pain As Directed Lactated Ringer's 1,000 mls @ 40 mls/hr 07/21/19 18:24 07/23/19 04:38 Lactated Ringer's IV 1,000 mls .Q24H JM Administration Nicotine 7 mg 07/18/19 18:00 07/22/19 18:40 Nicoderm Patch TD 7 mg Q24HR JM Administration Ondansetron HCl 4 mg 07/21/19 14:52 07/23/19 04:47 Zofran IVP 4 mg Q6H PRN Administration Nausea/Vomiting Pantoprazole Sodium 40 mg 07/18/19 21:00 07/23/19 09:13 Protonix IVP 40 mg Q12HR JM Administration Zolpidem Tartrate 5 mg 07/21/19 14:52 07/22/19 20:45 Ambien PO 5 mg HSPRN PRN Administration Insomnia - Exam General Appearance: NAD, awake alert Eye: PERRL, anicteric sclera ENT: normocephalic atraumatic Neck: supple Heart: RRR, no murmur Respiratory: CTAB Gastrointestinal: soft, non-distended, normal bowel sounds Gastrointestinal - other findings: central abd area -suture sites looks good. Hosp A/P - Plan (1) KORINA (acute kidney injury) Code(s): N17.9 - ACUTE KIDNEY FAILURE, UNSPECIFIED Status: Acute (2) Abdominal pain Code(s): R10.9 - UNSPECIFIED ABDOMINAL PAIN Status: Acute (3) HLD (hyperlipidemia) Code(s): E78.5 - HYPERLIPIDEMIA, UNSPECIFIED Status: Acute (4) HTN (hypertension) Code(s): I10 - ESSENTIAL (PRIMARY) HYPERTENSION Status: Acute (5) Nausea & vomiting Code(s): R11.2 - NAUSEA WITH VOMITING, UNSPECIFIED Status: Acute (6) Pyloric stenosis Code(s): K31.1 - ADULT HYPERTROPHIC PYLORIC STENOSIS Status: Acute (7) Severe protein-calorie malnutrition Code(s): E43 - UNSPECIFIED SEVERE PROTEIN-CALORIE MALNUTRITION Status: Acute (8) Hypercalcemia Code(s): E83.52 - HYPERCALCEMIA Status: Acute - Plan will continue ppn for now. Pt going for laparotomy today. Hypercalcemia improved. 07/21 toradol added for pain. s/p renaldo-en-y on 07/20. pt has ng tube will monitor electrolytes. on dvt ppx. 07/22 pt will need to be on dexilant on discharge per GI recommendation. she is currently on protonix. pt to have a upper gi series. she still has a ng tube. will check labs in am. Her hypercalcemia ( most likley due to dehydration) has resolved. PTh normal.
[2019-07-23] MEDS: fentaNYL Citrate/PF 2,000 MCG in Sodium Chloride 0.9% 60 ML IV PRN (15:56)
[2019-07-23] MEDS: Promethazine HCl 25 MG/ML VIAL IM/IV PRN ×2 (16:11→22:01)
--- NOTE | 2019-07-23 17:18 | PRG ---
DATE OF SERVICE: 07/23/2019 SUBJECTIVE: The patient is currently on the surgical floor. She is postop day 2 from a Imer-en-Y procedure. She had an upper GI that showed continuing swelling and edema at which time she was continued on her NG tube function and her IV fluids. The patient has not started on TPN at this time. Her pain is controlled. She is ambulating and passing flatus. OBJECTIVE: VITAL SIGNS: Temperature is 98.2, heart rate 91, blood pressure 115/64, respirations 16, oxygen saturation is 96% on 2L via nasal cannula. GENERAL: The patient is ambulating in her room. She is awake, alert, oriented x3. HEENT: Unremarkable. LUNGS: Clear to auscultation bilaterally. HEART: Regular rate and rhythm. ABDOMEN: Soft with active bowel sounds. LABORATORY DATA: There are no labs to review this morning. Radiographs: Upright abdomen shows Gastrografin administered on the previous exam is no longer evident on this study. There is an NG tube present in the stomach. 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 Plan is to continue NG suction and repeat her upper GI on Thursday. If the patient improves or there is a change, we will alter this plan. The patient was evaluated this morning with Dr. Millan during rounds. Job ID: [id number]
[2019-07-23] MEDS: D5W-AA 4.25% with LYTES 1,000 ML IV SCH (17:42)
[2019-07-23] MEDS: Nicotine 7 MG PATCH TD SCH (17:43)
[2019-07-24] MEDS: Lactated Ringer's 1,000 ML IV SCH (04:31)
[2019-07-24 05:45] LABS: #Basophils 0.1 thou/uL (0.0-0.2); #Eosinphils 0.5 thou/uL (0.0-0.7); #Lymphocytes 2.2 thou/uL (1.20-3.40); #Monocytes 0.9 thou/uL (0.11-0.59); #Neutrophils 8.1 thou/uL (1.40-6.50); %Basophils 0.5 % (0.0-1.0); %Eosinophils 4.6 % (0.0-10.0); %Lymphocytes 18.5 % (21.0-51.0); %Monocytes 7.6 % (0.0-10.0); %Neutrophils 68.8 % (42.0-75.0); Hemoglobin 10.3 g/dL (12.0-16.0); Mean Corpuscular HGB CONC 32.4 g/dL (32.0-36.0); Mean Corpuscular Hemoglobin 29.9 pg (27.0-31.0); Mean Corpuscular Volume 92.5 fL (78.0-98.0); Mean Platelet Volume 7.9 fL (7.4-10.4); Platelet Count 265 thou/uL (130-400); RBC Distribution Width 13.7 % (11.5-14.5); Red Blood Cell (RBC) Count 3.46 mill/uL (4.20-5.40); White Blood Cell (WBC) Count 11.8 thou/uL (4.8-10.8)
[2019-07-24 06:05] LABS: Anion Gap 13 mmol/L (10-20); BUN (Urea Nitrogen) 14 mg/dL (7.0-18.7); Calc. Creatinine Clearance 70 mL/min (70-130); Calcium 9.1 mg/dL (7.8-10.44); Carbon Dioxide 33 mmol/L (22-29); Chloride 97 mmol/L (98-107); Estimated GFR-MDRD 81; Glucose 106 mg/dL (70-105); Potassium 3.9 mmol/L (3.5-5.1); Sodium 139 mmol/L (136-145)
[2019-07-24] MEDS: D5W-AA 4.25% with LYTES 1,000 ML IV SCH ×2 (06:43→18:41)
[2019-07-24] MEDS: Acetaminophen 650 MG Suppository PR PRN ×2 (09:21→16:30)
[2019-07-24] MEDS: Promethazine HCl 25 MG/ML VIAL IM/IV PRN ×3 (09:22→21:05)
[2019-07-24] MEDS: Enoxaparin Sodium 40 MG/0.4 ML SYRINGE SC SCH (09:22)
[2019-07-24] MEDS: Pantoprazole 40 MG VIAL IVP SCH ×2 (09:22→20:56)
[2019-07-24] MEDS: DULoxetine 60 MG CAP PO SCH ×2 (09:34→20:52)
--- NOTE | 2019-07-24 13:16 | PDOC.HOSPP ---
- Subjective Encounter Date: 07/24/19 Encounter Time: 11:05 Subjective: she is ambulating, still NPO, having some icechips. plan for upper GI on thursday. passing gas. - Objective Vital Signs & Weight: Vital Signs (12 hours) Temp Pulse Resp BP Pulse Ox 07/24/19 11:31 98.4 F 89 14 108/66 93 L 07/24/19 07:05 98.3 F 81 16 111/70 97 07/24/19 03:37 98.4 F 95 16 119/79 95 Weight Admit Weight 108 lb 14.4 oz Weight 107 lb 3.2 oz I&O: 07/23/19 07/24/19 07/25/19 06:59 06:59 06:59 Intake Total 1568 1980 Output Total 1300 1100 Balance 268 880 Result Diagrams: 07/24/19 05:30 07/24/19 05:30 Hospitalist ROS - Medication Medications: Active Medications Generic Name Dose Route Start Last Admin Trade Name Freq PRN Reason Stop Dose Admin Acetaminophen 650 mg 07/23/19 03:51 07/23/19 04:37 Tylenol PO 650 mg Q6H PRN Administration Fever/Mild Pain Acetaminophen 650 mg 07/23/19 10:17 07/24/19 09:21 Tylenol GA 650 mg Q4H PRN Administration Headache/Fever or Pain Duloxetine HCl 60 mg 07/18/19 21:00 07/24/19 09:34 Cymbalta PO Not Given BID JM Enoxaparin Sodium 40 mg 07/19/19 09:00 07/24/19 09:22 Lovenox SC 40 mg 0900 JM Administration Fentanyl Citrate 2,000 mcg/ 100 mls @ 0 mls/hr 07/21/19 14:52 07/23/19 15:56 Sodium Chloride IV 100 mls INF PRN Administration Pain As Directed Lactated Ringer's 1,000 mls @ 40 mls/hr 07/21/19 18:24 07/24/19 04:31 Lactated Ringer's IV 1,000 mls .Q24H JM Administration Amino Acids/Electrolytes/Dextrose 1,000 mls @ 75 mls/hr 07/23/19 16:45 06:43 Clinimix E 4.25/5 IV 1,000 mls .[id number] JM Administration Nicotine 7 mg 07/18/19 18:00 07/23/19 17:43 Nicoderm Patch TD 7 mg Q24HR JM Administration Ondansetron HCl 4 mg 07/21/19 14:52 07/23/19 04:47 Zofran IVP 4 mg Q6H PRN Administration Nausea/Vomiting Pantoprazole Sodium 40 mg 07/18/19 21:00 07/24/19 09:22 Protonix IVP 40 mg Q12HR JM Administration Promethazine HCl 12.5 mg 07/23/19 10:17 07/24/19 09:22 Phenergan IM/IV 12.5 mg Q4H PRN Administration Nausea/Vomiting Zolpidem Tartrate 5 mg 07/21/19 14:52 07/22/19 20:45 Ambien PO 5 mg HSPRN PRN Administration Insomnia - Exam General Appearance: NAD, awake alert ENT: normocephalic atraumatic Neck: supple Heart: RRR Respiratory: CTAB Gastrointestinal: non-tender, non-distended Neurological: no focal deficits Hosp A/P - Plan (1) KORINA (acute kidney injury) Code(s): N17.9 - ACUTE KIDNEY FAILURE, UNSPECIFIED Status: Acute (2) Abdominal pain Code(s): R10.9 - UNSPECIFIED ABDOMINAL PAIN Status: Acute (3) HLD (hyperlipidemia) Code(s): E78.5 - HYPERLIPIDEMIA, UNSPECIFIED Status: Acute (4) HTN (hypertension) Code(s): I10 - ESSENTIAL (PRIMARY) HYPERTENSION Status: Acute (5) Nausea & vomiting Code(s): R11.2 - NAUSEA WITH VOMITING, UNSPECIFIED Status: Acute (6) Pyloric stenosis Code(s): K31.1 - ADULT HYPERTROPHIC PYLORIC STENOSIS Status: Acute s/p (7) Severe protein-calorie malnutrition Code(s): E43 - UNSPECIFIED SEVERE PROTEIN-CALORIE MALNUTRITION Status: Acute (8) Hypercalcemia Code(s): E83.52 - HYPERCALCEMIA Status: Acute -s/p s/p renaldo-en-y on 07/20. 07/23 pt will need to be on dexilant on discharge per GI recommendation. she is currently on protonix. pt to have a upper gi series. she still has a ng tube. will check labs in am. Her hypercalcemia ( most likley due to dehydration) has resolved. PTh normal. 9th - upper GI series - 10th.
--- NOTE | 2019-07-24 17:45 | PRG ---
DATE OF SERVICE: 07/24/2019 SUBJECTIVE: Ms. Lafleur is a 44-year-old female status post Imre-en-Y gastrojejunostomy for gastric outlet obstruction for benign disease postop day 3. Currently, the patient have NG. She has been walking around the floor more than four times a day. She developed a mild nauseated feeling, when NG tube was clamped. She developed no fever or shortness of breath. She passed some gas, but no bowel yet. Her pain is well controlled. OBJECTIVE: GENERAL: The patient is lying in bed comfortable with no acute respiratory distress. VITAL SIGNS: Temperature 98.3, heart rate 81, respiratory rate 16, O2 saturation 97% on 2 L cannula, and blood pressure 110/70. LUNGS: Clear bilaterally. HEART: Regular rate and rhythm. ABDOMEN: Soft and nondistended. Midline suture stable, is clean and dry. No tender to palpation. No erythema. Bowel sounds hypoactive. EXTREMITIES: Neurovascularly intact x4. ASSESSMENT: Status post Imer-en-Y gastrojejunostomy for gastric outlet obstruction for benign disease, postop day 3. PLAN: Plan will be to continue supportive care. Continue pain control. Encourage walking and physical activity. Continue n.p.o. Anticipate discontinue NG tube tomorrow if the patient passed more gas or have bowel. Job ID: [id number]
[2019-07-24] MEDS: Nicotine 7 MG PATCH TD SCH (19:30)
[2019-07-25] MEDS: Lactated Ringer's 1,000 ML IV SCH (04:27)
[2019-07-25] MEDS: Promethazine HCl 25 MG/ML VIAL IM/IV PRN ×4 (04:33→20:49)
[2019-07-25 06:18] LABS: #Eosinphils 0.4 thou/uL (0.0-0.7); #Lymphocytes 1.7 thou/uL (1.20-3.40); #Monocytes 0.7 thou/uL (0.11-0.59); #Neutrophils 6.1 thou/uL (1.40-6.50); %Basophils 0.4 % (0.0-1.0); %Eosinophils 4.1 % (0.0-10.0); %Lymphocytes 18.9 % (21.0-51.0); %Monocytes 7.6 % (0.0-10.0); %Neutrophils 68.9 % (42.0-75.0); Hemoglobin 8.7 g/dL (12.0-16.0); Mean Corpuscular HGB CONC 32.5 g/dL (32.0-36.0); Mean Corpuscular Hemoglobin 29.8 pg (27.0-31.0); Mean Corpuscular Volume 91.8 fL (78.0-98.0); Platelet Count 212 thou/uL (130-400); RBC Distribution Width 13.7 % (11.5-14.5); Red Blood Cell (RBC) Count 2.92 mill/uL (4.20-5.40); White Blood Cell (WBC) Count 8.9 thou/uL (4.8-10.8)
[2019-07-25] MEDS: Enoxaparin Sodium 40 MG/0.4 ML SYRINGE SC SCH (08:31)
[2019-07-25] MEDS: Pantoprazole 40 MG VIAL IVP SCH ×2 (08:34→20:49)
[2019-07-25] MEDS: Ondansetron PF 4 MG/2 ML Vial IVP PRN (08:43)
[2019-07-25] MEDS: D5W-AA 4.25% with LYTES 1,000 ML IV SCH (09:41)
--- NOTE | 2019-07-25 10:46 | PDOC.GSPN ---
Surgery Progress Note: Subj - Subjective Narrative: Patient is a 44 year old female POD 5 s/p Imer-en-Y bypass for gastric outlet obstruction. She has continued to have obstructive symptoms following surgery and had a upper GI study showing edema at the gastric outlet. She was continued on her NG tube function and IV fluids, remaining NPO. Today she is scheduled for a repeat upper GI study. Patient currently states that she slept well overnight with a moderate sore throat from her NG tube, abdominal pain is well controlled at 5-6/10 with current pain regimen, she has been ambulating frequently in her room and in the hallways, and is passing abdominal flatus. She has had no bowel movements and endorses moderate midline and LLQ abdominal pain with movement and palpation. She denies fever, chills, n/v, wound drainage or erythema. Surgery Progress Note: Obj - Vital signs Vital signs: Vital Signs - Most Recent Temp Pulse Resp BP Pulse Ox 99.7 F H 88 16 126/88 95 07/25/19 08:00 07/25/19 08:00 07/25/19 08:00 07/25/19 08:00 07/25/19 08:00 - Physical Exam General: no distress, well developed, well nourished ENT: other (NG tube in place with 500 ml drainage in cannister) Cardiovascular: regular rate and rhythm, no murmur Respiratory: clear to auscultation, normal expansion, normal respiratory effort , breath sounds present Abdomen: positive bowel sounds, appropriately tender Psychiatric: memory intact, oriented to time, oriented to person, oriented to place, speech is normal Wound: dressing clean,dry,intact Surgery Progress Note: Results - Labs Result Diagrams: 07/25/19 06:10 07/24/19 05:30 Lab results: Laboratory Results - last 24 hr 07/25/19 06:10 WBC 8.9 RBC 2.92 L Hgb 8.7 L Hct 26.8 L MCV 91.8 MCH 29.8 MCHC 32.5 RDW 13.7 Plt Count 212 MPV 8.0 Neutrophils % 68.9 Lymphocytes % 18.9 L Monocytes % 7.6 Eosinophils % 4.1 Basophils % 0.4 Neutrophils # 6.1 Lymphocytes # 1.7 Monocytes # 0.7 H Eosinophils # 0.4 Basophils # 0.0 Surgery Progress Note: A/P - Plan Plan: Assessment: 1. S/P Imer-en-Y gastrojejunostomy for gastric outlet obstruction, POD 5 2. Post-Operative Gastric outlet obstruction secondary to gastric wall edema Plan: Repeat upper GI study planned today, will review results and discuss further steps with patient. Continue current pain regimen. Continue NG tube on intermittent suction. Continue NPO status allowing sips of water and ice chips. Will d/c PPN and begin TPN. Encourage frequent ambulation TID at minimum to stimulate bowel function. Addendum - Physician - Physician Attestation Date/Time: 07/25/19 [id number] I personally performed or re-performed the physical examination and medical decision making. I have verified all student documentation or findings, including history, physical exam and/or medical decision making. Swallow showed some exit into the imer limb. She had more severe nausea after the procedure. Start TPN. Suspect she'll be able to start po in next few days
--- NOTE | 2019-07-25 12:34 | RAD ---
SINGLE CONTRAST UPPER GI: HISTORY: A 44-year-old female with recent R & Y gastrojejunostomy. FINDINGS: A nasogastric tube is in place. The Gastrografin was injected through the nasogastric tube into the stomach. There is slow passage of contrast from the stomach into the jejunal loops. IMPRESSION: No evidence of high-grade obstruction. POS: [facility]
[2019-07-25] MEDS: DULoxetine 60 MG CAP PO SCH ×2 (12:51→21:34)
[2019-07-25] MEDS: fentaNYL Citrate/PF 2,000 MCG in Sodium Chloride 0.9% 60 ML IV PRN (12:52)
--- NOTE | 2019-07-25 13:03 | PDOC.HOSPP ---
- Subjective Encounter Date: 07/25/19 Encounter Time: 22:20 Subjective: pt going for upper GI series this am. no acute events and she is doing well. - Objective Vital Signs & Weight: Vital Signs (12 hours) Temp Pulse Resp BP BP Pulse Ox 07/25/19 08:00 99.7 F H 88 16 126/88 95 07/25/19 03:58 98.3 F 79 16 135/80 94 L Weight Admit Weight 108 lb 14.4 oz Weight 107 lb 3.2 oz I&O: 07/24/19 07/25/19 07/26/19 06:59 06:59 06:59 Intake Total 1980 2930 Output Total 1100 650 Balance 880 2280 Result Diagrams: 07/25/19 06:10 07/24/19 05:30 Hospitalist ROS - Medication Medications: Active Medications Generic Name Dose Route Start Last Admin Trade Name Freq PRN Reason Stop Dose Admin Acetaminophen 650 mg 07/23/19 03:51 07/23/19 04:37 Tylenol PO 650 mg Q6H PRN Administration Fever/Mild Pain Acetaminophen 650 mg 07/23/19 10:17 07/24/19 16:30 Tylenol [place] 650 mg Q4H PRN Administration Headache/Fever or Pain Duloxetine HCl 60 mg 07/18/19 21:00 07/25/19 12:51 Cymbalta PO Not Given BID JM Enoxaparin Sodium 40 mg 07/19/19 09:00 07/25/19 08:31 Lovenox SC 40 mg 0900 JM Administration Fentanyl Citrate 2,000 mcg/ 100 mls @ 0 mls/hr 07/21/19 14:52 07/25/19 12:52 Sodium Chloride IV 100 mls INF PRN Administration Pain As Directed Lactated Ringer's 1,000 mls @ 40 mls/hr 07/21/19 18:24 07/25/19 04:27 Lactated Ringer's IV 1,000 mls .Q24H JM Administration Amino Acids/Electrolytes/Dextrose 1,000 mls @ 75 mls/hr 07/23/19 16:45 09:41 Clinimix E 4.25/5 IV 1,000 mls .[id number] JM Administration Nicotine 7 mg 07/18/19 18:00 07/24/19 19:30 Nicoderm Patch TD 7 mg Q24HR JM Administration Ondansetron HCl 4 mg 07/21/19 14:52 07/25/19 08:43 Zofran IVP 4 mg Q6H PRN Administration Nausea/Vomiting Pantoprazole Sodium 40 mg 07/18/19 21:00 07/25/19 08:34 Protonix IVP 40 mg Q12HR JM Administration Promethazine HCl 12.5 mg 07/23/19 10:17 07/25/19 12:36 Phenergan IM/IV 12.5 mg Q4H PRN Administration Nausea/Vomiting Zolpidem Tartrate 5 mg 07/21/19 14:52 07/22/19 20:45 Ambien PO 5 mg HSPRN PRN Administration Insomnia - Exam General Appearance: NAD, awake alert Eye: PERRL ENT: normocephalic atraumatic Neck: supple, symmetric Heart: RRR, no murmur Respiratory: CTAB Gastrointestinal: soft, non-distended, normal bowel sounds, no hepatomegaly Hosp A/P - Plan (1) KORINA (acute kidney injury) Code(s): N17.9 - ACUTE KIDNEY FAILURE, UNSPECIFIED Status: Acute (2) Abdominal pain Code(s): R10.9 - UNSPECIFIED ABDOMINAL PAIN Status: Acute (3) HLD (hyperlipidemia) Code(s): E78.5 - HYPERLIPIDEMIA, UNSPECIFIED Status: Acute (4) HTN (hypertension) Code(s): I10 - ESSENTIAL (PRIMARY) HYPERTENSION Status: Acute (5) Nausea & vomiting Code(s): R11.2 - NAUSEA WITH VOMITING, UNSPECIFIED Status: Acute (6) Pyloric stenosis Code(s): K31.1 - ADULT HYPERTROPHIC PYLORIC STENOSIS Status: Acute s/p (7) Severe protein-calorie malnutrition Code(s): E43 - UNSPECIFIED SEVERE PROTEIN-CALORIE MALNUTRITION Status: Acute (8) Hypercalcemia Code(s): E83.52 - HYPERCALCEMIA Status: Acute -ca normalized - her PTH is on the low end. may need to repeat after 2 to 3 wks given the s/p sux - fw with TSH level. -s/p s/p renaldo-en-y on 07/20. 07/23 pt will need to be on dexilant on discharge per GI recommendation. she is currently on protonix. pt to have a upper gi series. she still has a ng tube. will check labs in am. Her hypercalcemia ( most likley due to dehydration) has resolved. PTh normal. 9 - upper GI series - . - will follow through after her procedure today starting diet, per sux. routine labs. -ca normalized - her PTH is on the low end. may need to repeat after 2 to 3 wks given the s/p sux - fw with TSH level.
[2019-07-25] MEDS ORDERED: GASTROGRAFIN 30 ML BOT ONE (16:01)
[2019-07-25] MEDS: Nicotine 7 MG PATCH TD SCH (18:41)
[2019-07-25] MEDS: Acetaminophen 650 MG Suppository PR PRN (18:46)
[2019-07-25] MEDS: POTASSIUM ACETATE IV SCH (22:36)
[2019-07-25] MEDS: SODIUM ACETATE IV SCH (22:36)
[2019-07-25] MEDS: [UNRECOGNIZED DRUG - OTHER] IV SCH (22:36)
[2019-07-25] MEDS: CALCIUM GLUCONATE IV SCH (22:36)
[2019-07-26] MEDS: Promethazine HCl 25 MG/ML VIAL IM/IV PRN ×6 (00:47→22:12)
[2019-07-26 06:16] LABS: Anion Gap 12 mmol/L (10-20); BUN (Urea Nitrogen) 15 mg/dL (7.0-18.7); Calc. Creatinine Clearance 103 mL/min (70-130); Calcium 9.2 mg/dL (7.8-10.44); Carbon Dioxide 33 mmol/L (22-29); Chloride 100 mmol/L (98-107); Estimated GFR-MDRD Greater than 90; Glucose 88 mg/dL (70-105); Potassium 3.6 mmol/L (3.5-5.1); Sodium 141 mmol/L (136-145)
[2019-07-26] MEDS: Enoxaparin Sodium 40 MG/0.4 ML SYRINGE SC SCH (08:13)
[2019-07-26] MEDS: DULoxetine 60 MG CAP PO SCH ×2 (08:13→21:30)
[2019-07-26] MEDS: Pantoprazole 40 MG VIAL IVP SCH ×2 (08:13→21:30)
--- NOTE | 2019-07-26 11:56 | PDOC.HOSPP ---
- Subjective Encounter Date: 07/26/19 Encounter Time: 08:55 Subjective: doing well, tpn, no nausea this am; passing gas. NGT fell o/n. severe hypothyroidism - Objective Vital Signs & Weight: Vital Signs (12 hours) Temp Pulse Resp BP Pulse Ox 07/26/19 11:21 94 L 07/26/19 11:11 99.7 F H 85 16 122/84 94 L 07/26/19 08:15 95 07/26/19 07:37 98.4 F 91 15 121/73 95 07/26/19 04:00 98.1 F 80 18 138/79 95 Weight Admit Weight 108 lb 14.4 oz Weight 133 lb 6.4 oz I&O: 07/25/19 07/26/19 07/27/19 06:59 06:59 06:59 Intake Total 2930 2596 Output Total 650 1025 Balance 2280 1571 Result Diagrams: 07/25/19 06:10 07/26/19 05:34 Additional Labs: Accuchecks 07/26/19 07/25/19 05:39 23:59 POC Glucose 89 138 H Hospitalist ROS - Medication Medications: Active Medications Generic Name Dose Route Start Last Admin Trade Name Freq PRN Reason Stop Dose Admin Acetaminophen 650 mg 07/23/19 03:51 07/23/19 04:37 Tylenol PO 650 mg Q6H PRN Administration Fever/Mild Pain Acetaminophen 650 mg 07/23/19 10:17 07/25/19 18:46 Tylenol ND 650 mg Q4H PRN Administration Headache/Fever or Pain Duloxetine HCl 60 mg 07/18/19 21:00 07/26/19 08:13 Cymbalta PO 60 mg BID JM Administration Enoxaparin Sodium 40 mg 07/19/19 09:00 07/26/19 08:13 Lovenox SC 40 mg 0900 JM Administration Fentanyl Citrate 2,000 mcg/ 100 mls @ 0 mls/hr 07/21/19 14:52 07/25/19 12:52 Sodium Chloride IV 100 mls INF PRN Administration Pain As Directed Lactated Ringer's 1,000 mls @ 40 mls/hr 07/21/19 18:24 07/25/19 04:27 Lactated Ringer's IV 1,000 mls .Q24H JM Administration Sodium Acetate 40 meq/ 2,112.1728 mls @ 88.007 mls/hr 07/25/19 22:00 22:36 Potassium Acetate 40 meq/ IV 07/26/19 22:00 2,112.1728 mls Calcium Gluconate 20 meq/ 2200 JM Administration Magnesium Sulfate 15 meq/ Multivitamins 10 ml/ Chromium/ Copper/Manganese/Seleni/Zn 5 ml/ Fat Emulsion Intravenous 200 ml/ Dextrose/Water/ Sterile Water/ Amino Acids Nicotine 7 mg 07/18/19 18:00 07/25/19 18:41 Nicoderm Patch TD 7 mg Q24HR JM Administration Ondansetron HCl 4 mg 07/21/19 14:52 07/25/19 08:43 Zofran IVP 4 mg Q6H PRN Administration Nausea/Vomiting Pantoprazole Sodium 40 mg 07/18/19 21:00 07/26/19 08:13 Protonix IVP 40 mg Q12HR JM Administration Promethazine HCl 12.5 mg 07/23/19 10:17 07/26/19 09:48 Phenergan IM/IV 12.5 mg Q4H PRN Administration Nausea/Vomiting Zolpidem Tartrate 5 mg 07/21/19 14:52 07/22/19 20:45 Ambien PO 5 mg HSPRN PRN Administration Insomnia - Exam General Appearance: NAD, awake alert Eye: PERRL ENT: normocephalic atraumatic, no oropharyngeal lesions Neck: supple, symmetric Heart: RRR, no murmur Respiratory: CTAB, no wheezes Gastrointestinal: soft, normal bowel sounds Extremities: no cyanosis Hosp A/P - Plan (1) KORINA (acute kidney injury) Code(s): N17.9 - ACUTE KIDNEY FAILURE, UNSPECIFIED Status: Acute (2) Abdominal pain Code(s): R10.9 - UNSPECIFIED ABDOMINAL PAIN Status: Acute (3) HLD (hyperlipidemia) Code(s): E78.5 - HYPERLIPIDEMIA, UNSPECIFIED Status: Acute (4) HTN (hypertension) Code(s): I10 - ESSENTIAL (PRIMARY) HYPERTENSION Status: Acute (5) Nausea & vomiting Code(s): R11.2 - NAUSEA WITH VOMITING, UNSPECIFIED Status: Acute (6) Pyloric stenosis Code(s): K31.1 - ADULT HYPERTROPHIC PYLORIC STENOSIS Status: Acute s/p (7) Severe protein-calorie malnutrition Code(s): E43 - UNSPECIFIED SEVERE PROTEIN-CALORIE MALNUTRITION Status: Acute (8) Hypercalcemia Code(s): E83.52 - HYPERCALCEMIA Status: Acute -ca normalized - her PTH is on the low end. may need to repeat after 2 to 3 wks given the s/p sux - fw with TSH level. -s/p s/p renaldo-en-y on 07/20. 07/23 pt will need to be on dexilant on discharge per GI recommendation. she is currently on protonix. pt to have a upper gi series. she still has a ng tube. will check labs in am. Her hypercalcemia ( most likley due to dehydration) has resolved. PTh normal. - upper GI series - . - will follow through after her procedure today starting diet, per sux. routine labs. -ca normalized - her PTH is on the low end. may need to repeat after 2 to 3 wks given the s/p sux - fw with TSH level. Hypothyroidism -pt is not on supplement - will start her on low dose and inc in 2 to 3 days. -need TSH repeat in 3 wks. UPPER GI series on - no high grade obstruction on TPN now.
[2019-07-26] MEDS: Lactated Ringer's 1,000 ML IV SCH (14:03)
--- NOTE | 2019-07-26 17:04 | PRG ---
DATE OF SERVICE: 07/26/2019 SUBJECTIVE: Ms. Lafleur is doing okay. She notes persistent nausea. No vomiting since her NG tube came out overnight. Her small bowel follow-through yesterday showed good drainage. OBJECTIVE: On exam, her abdomen is soft. Her wounds are dressed. She has active bowel sounds. ASSESSMENT: Resolving gastric outlet obstruction after Imer-en-Y gastrojejunostomy. PLAN: Allow clear liquids. Continue TPN until tolerating at least a liquid diet. Of note, her TSH is high. She states that she was previously on thyroid medicine, but stopped. She may need to have something restarted as she begins to take p.o. Job ID: [id number]
[2019-07-26] MEDS: Nicotine 7 MG PATCH TD SCH (17:20)
[2019-07-26] MEDS: fentaNYL Citrate/PF 2,000 MCG in Sodium Chloride 0.9% 60 ML IV PRN (17:21)
[2019-07-26] MEDS: [UNRECOGNIZED DRUG - OTHER] IV SCH (22:08)
[2019-07-26] MEDS: SODIUM ACETATE IV SCH ×2 (22:08→22:11)
[2019-07-26] MEDS: POTASSIUM ACETATE IV SCH (22:08)
[2019-07-26] MEDS: CALCIUM GLUCONATE IV SCH ×2 (22:08→22:11)
[2019-07-26] MEDS: POTASSIUM CHLORIDE IV SCH (22:11)
[2019-07-26] MEDS: [UNRECOGNIZED DRUG - OTHER] IV SCH (22:11)
[2019-07-27] MEDS: Promethazine HCl 25 MG/ML VIAL IM/IV PRN ×5 (03:31→20:32)
[2019-07-27] MEDS: Levothyroxine Sodium 50 MCG TAB PO SCH (05:46)
[2019-07-27 07:27] LABS: Chloride 100 mmol/L (98-107); Potassium 3.7 mmol/L (3.5-5.1); Sodium 138 mmol/L (136-145)
[2019-07-27 07:28] LABS: Calcium 8.8 mg/dL (7.8-10.44); Glucose 76 mg/dL (70-105)
[2019-07-27 07:30] LABS: Anion Gap 11 mmol/L (10-20); Carbon Dioxide 31 mmol/L (22-29)
[2019-07-27 07:32] LABS: Calc. Creatinine Clearance 112 mL/min (70-130); Estimated GFR-MDRD Greater than 90
[2019-07-27 07:33] LABS: BUN (Urea Nitrogen) 16 mg/dL (7.0-18.7)
[2019-07-27] MEDS: DULoxetine 60 MG CAP PO SCH ×2 (08:28→20:31)
[2019-07-27] MEDS: Enoxaparin Sodium 40 MG/0.4 ML SYRINGE SC SCH (08:29)
[2019-07-27] MEDS: Pantoprazole 40 MG VIAL IVP SCH ×2 (08:29→20:31)
--- NOTE | 2019-07-27 08:48 | PRG ---
DATE OF SERVICE: 07/27/2019 SUBJECTIVE: Ms. Lafleur is noting persistent [id number] nausea, worse after she tried Jell-O. She is up and ambulatory. No vomiting. OBJECTIVE: She is afebrile. Her vital signs are stable. She is voiding regularly. Her abdomen is soft and the wounds are healing well. No evidence of infection. LABORATORY DATA: Sodium 138, potassium 3.7, creatinine 0.6, calcium 8.8. ASSESSMENT: Postop rule out gastro-J for gastric outlet obstruction with persistent slow drainage of stomach. PLAN: Continue on clear liquids as tolerated. Continue TPN. Job ID: [id number]
[2019-07-27] MEDS: Lactated Ringer's 1,000 ML IV SCH ×2 (12:31→22:33)
--- NOTE | 2019-07-27 13:21 | PDOC.HOSPP ---
- Subjective Encounter Date: 07/27/19 Encounter Time: 10:45 Subjective: pt ambulating, started on clears and some nausea. otherwise doing ok. - Objective Vital Signs & Weight: Vital Signs (12 hours) Temp Pulse Resp BP Pulse Ox 07/27/19 11:12 97.9 F 94 18 152/91 H 96 07/27/19 07:55 93 L 07/27/19 07:35 93 L 07/27/19 07:28 98.1 F 77 15 151/89 H 93 L 07/27/19 03:18 98.2 F 71 16 131/79 95 Weight Admit Weight 108 lb 14.4 oz Weight 133 lb 6.4 oz I&O: 07/26/19 07/27/19 07/28/19 06:59 06:59 06:59 Intake Total 2596 2109 220 Output Total 1025 Balance 1571 2109 220 Result Diagrams: 07/25/19 06:10 07/27/19 06:27 Additional Labs: Accuchecks 07/27/19 07/27/19 07/26/19 12:13 05:12 23:45 POC Glucose 125 H 138 H 136 H 07/26/19 18:11 POC Glucose 149 H Hospitalist ROS - Medication Medications: Active Medications Generic Name Dose Route Start Last Admin Trade Name Freq PRN Reason Stop Dose Admin Acetaminophen 650 mg 07/23/19 03:51 07/23/19 04:37 Tylenol PO 650 mg Q6H PRN Administration Fever/Mild Pain Acetaminophen 650 mg 07/23/19 10:17 07/25/19 18:46 Tylenol IN 650 mg Q4H PRN Administration Headache/Fever or Pain Duloxetine HCl 60 mg 07/18/19 21:00 07/27/19 08:28 Cymbalta PO 60 mg BID JM Administration Enoxaparin Sodium 40 mg 07/19/19 09:00 07/27/19 08:29 Lovenox SC 40 mg 0900 JM Administration Fentanyl Citrate 2,000 mcg/ 100 mls @ 0 mls/hr 07/21/19 14:52 07/26/19 17:21 Sodium Chloride IV 100 mls INF PRN Administration Pain As Directed Sodium Acetate 40 meq/ 2,112.1728 mls @ 88 mls/hr 07/26/19 22:00 07/26/19 22: 11 Potassium Chloride 40 meq/ IV 2,112.1728 mls Calcium Gluconate 20 meq/ 2200 JM Administration Magnesium Sulfate 15 meq/ Multivitamins 10 ml/ Chromium/ Copper/Manganese/Seleni/Zn 5 ml/ Fat Emulsion Intravenous 200 ml/ Dextrose/Water/ Sterile Water/ Amino Acids Lactated Ringer's 1,000 mls @ 22 mls/hr 07/27/19 12:15 07/27/19 12:31 Lactated Ringer's IV Not Given .Q24H JM Levothyroxine Sodium 50 mcg 07/27/19 06:00 07/27/19 05:46 Synthroid PO 50 mcg 0600 JM Administration Nicotine 7 mg 07/18/19 18:00 07/26/19 17:20 Nicoderm Patch TD 7 mg Q24HR JM Administration Ondansetron HCl 4 mg 07/21/19 14:52 07/25/19 08:43 Zofran IVP 4 mg Q6H PRN Administration Nausea/Vomiting Pantoprazole Sodium 40 mg 07/18/19 21:00 07/27/19 08:29 Protonix IVP 40 mg Q12HR JM Administration Promethazine HCl 12.5 mg 07/23/19 10:17 07/27/19 12:30 Phenergan IM/IV 12.5 mg Q4H PRN Administration Nausea/Vomiting Sodium Chloride 10 ml 07/20/19 18:55 07/26/19 21:31 Flush - Normal Saline IVF 10 ml PRN PRN Administration Saline Flush Zolpidem Tartrate 5 mg 07/21/19 14:52 07/22/19 20:45 Ambien PO 5 mg HSPRN PRN Administration Insomnia - Exam General Appearance: NAD, awake alert ENT: normocephalic atraumatic Neck: supple Heart: RRR, normal peripheral pulses Respiratory: CTAB Gastrointestinal: soft, normal bowel sounds Skin: normal turgor Hosp A/P - Plan (1) KORINA (acute kidney injury) Code(s): N17.9 - ACUTE KIDNEY FAILURE, UNSPECIFIED Status: Acute (2) Abdominal pain Code(s): R10.9 - UNSPECIFIED ABDOMINAL PAIN Status: Acute (3) HLD (hyperlipidemia) Code(s): E78.5 - HYPERLIPIDEMIA, UNSPECIFIED Status: Acute (4) HTN (hypertension) Code(s): I10 - ESSENTIAL (PRIMARY) HYPERTENSION Status: Acute (5) Nausea & vomiting Code(s): R11.2 - NAUSEA WITH VOMITING, UNSPECIFIED Status: Acute (6) Pyloric stenosis Code(s): K31.1 - ADULT HYPERTROPHIC PYLORIC STENOSIS Status: Acute s/p (7) Severe protein-calorie malnutrition Code(s): E43 - UNSPECIFIED SEVERE PROTEIN-CALORIE MALNUTRITION Status: Acute (8) Hypercalcemia Code(s): E83.52 - HYPERCALCEMIA Status: Acute -ca normalized - her PTH is on the low end. may need to repeat after 2 to 3 wks given the s/p sux - fw with TSH level. -s/p s/p renaldo-en-y on 07/20. 07/23 pt will need to be on dexilant on discharge per GI recommendation. she is currently on protonix. pt to have a upper gi series. she still has a ng tube. will check labs in am. Her hypercalcemia ( most likley due to dehydration) has resolved. PTh normal. - upper GI series - . - will follow through after her procedure today starting diet, per sux. routine labs. -ca normalized - her PTH is on the low end. may need to repeat after 2 to 3 wks given the s/p sux - fw with TSH level. Hypothyroidism -pt is not on supplement - will start her on low dose and inc in 2 to 3 days. -need TSH repeat in 3 wks. UPPER GI series on - no high grade obstruction on TPN now. - started on CLD - CW TPN -periodic am labs.
[2019-07-27] MEDS: Acetaminophen 650 MG Suppository PR PRN (14:11)
[2019-07-27] MEDS: Nicotine 7 MG PATCH TD SCH (17:53)
[2019-07-27] MEDS ORDERED: Aluminum & Magnesium Hydroxide 60 ML, Lidocaine 2% Viscous Solution 30 ML, diphenhydrAM... SSP PRN (19:02)
[2019-07-27] MEDS: Nystatin 500,000 UNITS/5 ML UDCUP SSW SCH (20:30)
[2019-07-27] MEDS: Zolpidem Tartrate 5 MG TAB PO PRN (21:25)
[2019-07-27] MEDS: POTASSIUM CHLORIDE IV SCH (22:23)
[2019-07-27] MEDS: CALCIUM GLUCONATE IV SCH (22:23)
[2019-07-27] MEDS: SODIUM ACETATE IV SCH (22:23)
[2019-07-27] MEDS: [UNRECOGNIZED DRUG - OTHER] IV SCH (22:23)
[2019-07-27] MEDS: fentaNYL Citrate/PF 2,000 MCG in Sodium Chloride 0.9% 60 ML IV PRN (22:24)
[2019-07-28] MEDS: Promethazine HCl 25 MG/ML VIAL IM/IV PRN ×6 (00:43→22:24)
[2019-07-28] MEDS: Levothyroxine Sodium 50 MCG TAB PO SCH (05:37)
[2019-07-28 06:54] LABS: ALT (SGPT) 14 U/L (8-55); AST (SGOT) 51 U/L (5-34); Albumin 3.4 g/dL (3.5-5.0); Alkaline Phosphatase 78 U/L (40-110); Anion Gap 11 mmol/L (10-20); BUN (Urea Nitrogen) 11 mg/dL (7.0-18.7); Bilirubin, Total 0.2 mg/dL (0.2-1.2); Calc. Creatinine Clearance 100 mL/min (70-130); Calcium 8.8 mg/dL (7.8-10.44); Carbon Dioxide 30 mmol/L (22-29); Chloride 102 mmol/L (98-107); Estimated GFR-MDRD Greater than 90; Globulin 3.1 g/dL (2.4-3.5); Glucose 73 mg/dL (70-105); Magnesium 1.3 mg/dL (1.6-2.6); Potassium 3.5 mmol/L (3.5-5.1); Protein, Total 6.5 g/dL (6.0-8.3); Sodium 139 mmol/L (136-145)
[2019-07-28 07:00] LABS: Phosphorus 1.5 mg/dL (2.3-4.7)
[2019-07-28] MEDS ORDERED: Potassium Phosphate 12 MMOL in Sodium Chloride 0.9% 100 ML IVPB SCH (07:15)
[2019-07-28] MEDS ORDERED: Magnesium 2 GM/50 ML 2 GM in Premix Bag 1 BAG IVPB SCH (07:15)
[2019-07-28] MEDS ORDERED: Metoclopramide 10 MG/10 ML UDCUP PO SCH (07:30)
[2019-07-28] MEDS: Pantoprazole 40 MG VIAL IVP SCH ×2 (08:49→19:47)
[2019-07-28] MEDS: Enoxaparin Sodium 40 MG/0.4 ML SYRINGE SC SCH (08:49)
[2019-07-28] MEDS: Metoclopramide HCl 10 MG TAB PO SCH ×4 (09:22→19:47)
[2019-07-28] MEDS: DULoxetine 60 MG CAP PO SCH ×2 (09:22→19:47)
[2019-07-28] MEDS: Acetaminophen 650 MG Suppository PR PRN (09:23)
[2019-07-28] MEDS: Nystatin 500,000 UNITS/5 ML UDCUP SSW SCH ×3 (09:24→19:47)
--- NOTE | 2019-07-28 09:29 | PRG ---
DATE OF SERVICE: 07/28/2019 SUBJECTIVE: Ms. Lafleur is doing well today. She is tolerating liquids mouth sores. She is not on antibiotics. She has occasional nausea. Three days ago, she had upper GI revealing outflow through her gastrojejunostomy as well as her pylorus. She has redundant mucosal folds. She has delayed gastric emptying. Today started on Reglan elixir p.o. and advance her to full liquids as she requested more liquid diet that might help her with her nausea and I agree. OBJECTIVE: LUNGS: Clear to auscultation. CARDIAC: Regular rate and rhythm. No murmur or gallop. ABDOMEN: Soft, nontender. ASSESSMENT AND PLAN: Delayed gastric emptying. Continue Reglan elixir, advanced to full liquids. Dietary consult for 3 to 4 times a day. High-protein liquid supplement shakes . Low magnesium, replace. Low phosphorus, replace. Job ID: [id number]
--- NOTE | 2019-07-28 14:16 | PDOC.HOSPP ---
- Subjective Encounter Date: 07/28/19 Encounter Time: 11:00 Subjective: pt is ambulating, on CLD, states that is quite a bit nauseated. Mag and phos on low side, being replaced. - Objective Vital Signs & Weight: Vital Signs (12 hours) Temp Pulse Resp BP Pulse Ox 07/28/19 12:08 98.2 F 89 18 117/78 96 07/28/19 07:38 97.2 F L 97 12 132/87 96 07/28/19 07:11 96 07/28/19 03:52 97.9 F 89 16 113/77 96 Weight Admit Weight 108 lb 14.4 oz Weight 133 lb 6.4 oz I&O: 07/27/19 07/28/19 07/29/19 06:59 06:59 06:59 Intake Total 2108 1989 Balance 2108 1989 Result Diagrams: 07/25/19 06:10 07/28/19 06:23 Additional Labs: Accuchecks 07/28/19 07/28/19 07/28/19 12:10 05:44 00:03 POC Glucose 105 156 H 151 H Hospitalist ROS - Medication Medications: Active Medications Generic Name Dose Route Start Last Admin Trade Name Freq PRN Reason Stop Dose Admin Acetaminophen 650 mg 07/23/19 03:51 07/23/19 04:37 Tylenol PO 650 mg Q6H PRN Administration Fever/Mild Pain Acetaminophen 650 mg 07/23/19 10:17 07/28/19 09:23 Tylenol [place] 650 mg Q4H PRN Administration Headache/Fever or Pain Duloxetine HCl 60 mg 07/18/19 21:00 07/28/19 09:22 Cymbalta PO 60 mg BID JM Administration Enoxaparin Sodium 40 mg 07/19/19 09:00 07/28/19 08:49 Lovenox SC 40 mg 0900 JM Administration Fentanyl Citrate 2,000 mcg/ 100 mls @ 0 mls/hr 07/21/19 14:52 07/27/19 22:24 Sodium Chloride IV 100 mls INF PRN Administration Pain As Directed Sodium Acetate 40 meq/ 2,112.1728 mls @ 88 mls/hr 07/26/19 22:00 07/27/19 22: 23 Potassium Chloride 40 meq/ IV 07/28/19 21:59 2,112.1728 mls Calcium Gluconate 20 meq/ 2200 JM Administration Magnesium Sulfate 15 meq/ Multivitamins 10 ml/ Chromium/ Copper/Manganese/Seleni/Zn 5 ml/ Fat Emulsion Intravenous 200 ml/ Dextrose/Water/ Sterile Water/ Amino Acids Lactated Ringer's 1,000 mls @ 22 mls/hr 07/27/19 12:15 07/27/19 22:33 Lactated Ringer's IV 1,000 mls .Q24H JM Administration Levothyroxine Sodium 50 mcg 07/27/19 06:00 07/28/19 05:37 Synthroid PO 50 mcg 0600 JM Administration Metoclopramide HCl 10 mg 07/28/19 07:30 07/28/19 12:24 Reglan PO 10 mg ACHS JM Administration Nicotine 7 mg 07/18/19 18:00 07/27/19 17:53 Nicoderm Patch TD 7 mg Q24HR JM Administration Nystatin 500,000 units 07/27/19 21:00 07/28/19 14:02 Mycostatin SSW 500,000 units TID JM Administration Ondansetron HCl 4 mg 07/21/19 14:52 07/25/19 08:43 Zofran IVP 4 mg Q6H PRN Administration Nausea/Vomiting Pantoprazole Sodium 40 mg 07/18/19 21:00 07/28/19 08:49 Protonix IVP 40 mg Q12HR JM Administration Promethazine HCl 12.5 mg 07/23/19 10:17 07/28/19 14:02 Phenergan IM/IV 12.5 mg Q4H PRN Administration Nausea/Vomiting Sodium Chloride 10 ml 07/20/19 18:55 07/26/19 21:31 Flush - Normal Saline IVF 10 ml PRN PRN Administration Saline Flush Zolpidem Tartrate 5 mg 07/21/19 14:52 07/27/19 21:25 Ambien PO 5 mg HSPRN PRN Administration Insomnia - Exam General Appearance: NAD, awake alert Eye: PERRL ENT: normocephalic atraumatic Neck: supple, symmetric, no JVD Heart: RRR Respiratory: CTAB, normal chest expansion Gastrointestinal: soft, non-tender, normal bowel sounds, no hepatomegaly Skin: normal turgor Neurological: cranial nerve grossly intact, no focal deficits Hosp A/P - Plan (1) KORINA (acute kidney injury) Code(s): N17.9 - ACUTE KIDNEY FAILURE, UNSPECIFIED Status: Acute (2) Abdominal pain Code(s): R10.9 - UNSPECIFIED ABDOMINAL PAIN Status: Acute (3) HLD (hyperlipidemia) Code(s): E78.5 - HYPERLIPIDEMIA, UNSPECIFIED Status: Acute (4) HTN (hypertension) Code(s): I10 - ESSENTIAL (PRIMARY) HYPERTENSION Status: Acute (5) Nausea & vomiting Code(s): R11.2 - NAUSEA WITH VOMITING, UNSPECIFIED Status: Acute (6) Pyloric stenosis Code(s): K31.1 - ADULT HYPERTROPHIC PYLORIC STENOSIS Status: Acute s/p (7) Severe protein-calorie malnutrition Code(s): E43 - UNSPECIFIED SEVERE PROTEIN-CALORIE MALNUTRITION Status: Acute (8) Hypercalcemia Code(s): E83.52 - HYPERCALCEMIA Status: Acute -ca normalized - her PTH is on the low end. may need to repeat after 2 to 3 wks given the s/p sux - fw with TSH level. -s/p s/p renaldo-en-y on 07/20. 07/23 pt will need to be on dexilant on discharge per GI recommendation. she is currently on protonix. pt to have a upper gi series. she still has a ng tube. will check labs in am. Her hypercalcemia ( most likley due to dehydration) has resolved. PTh normal. 9 - upper GI series - . - will follow through after her procedure today starting diet, per sux. routine labs. -ca normalized - her PTH is on the low end. may need to repeat after 2 to 3 wks given the s/p sux - fw with TSH level. 11 Hypothyroidism -pt is not on supplement - will start her on low dose and inc in 2 to 3 days. -need TSH repeat in 3 wks. UPPER GI series on - no high grade obstruction on TPN now. - started on CLD - CW TPN -periodic am labs. 13 Delayed gastric emptying -slowly advancing the diet -currently on FLD and protein supplem.. drinks. Hypomagnesemia Hypophosphatemia --being replaced -repeat level in am.
[2019-07-28 16:05] LABS: Phosphorus 1.9 mg/dL (2.3-4.7)
[2019-07-28] MEDS: Nicotine 7 MG PATCH TD SCH (18:06)
[2019-07-28] MEDS: fentaNYL Citrate/PF 2,000 MCG in Sodium Chloride 0.9% 60 ML IV PRN (19:48)
[2019-07-28] MEDS ORDERED: SODIUM ACETATE IV SCH ×2 (22:00)
[2019-07-28] MEDS ORDERED: POTASSIUM CHLORIDE IV SCH ×2 (22:00)
[2019-07-28] MEDS ORDERED: [UNRECOGNIZED DRUG - OTHER] IV SCH ×2 (22:00)
[2019-07-28] MEDS: Zolpidem Tartrate 5 MG TAB PO PRN (22:24)
[2019-07-28] MEDS: Lactated Ringer's 1,000 ML IV SCH (22:42)
[2019-07-29] MEDS: Promethazine HCl 25 MG/ML VIAL IM/IV PRN (05:48)
[2019-07-29] MEDS: Levothyroxine Sodium 50 MCG TAB PO SCH (05:48)
[2019-07-29] MEDS: Metoclopramide HCl 10 MG TAB PO SCH ×4 (06:40→20:13)
[2019-07-29] MEDS ORDERED: Acetaminophen 500 MG TAB PO PRN (07:12)
[2019-07-29] MEDS: DULoxetine 60 MG CAP PO SCH ×2 (08:39→20:12)
[2019-07-29] MEDS: Nystatin 500,000 UNITS/5 ML UDCUP SSW SCH ×3 (08:39→20:13)
[2019-07-29] MEDS: Enoxaparin Sodium 40 MG/0.4 ML SYRINGE SC SCH (08:40)
[2019-07-29] MEDS: Pantoprazole 40 MG VIAL IVP SCH (08:40)
--- NOTE | 2019-07-29 10:58 | PDOC.HOSPP ---
- Subjective Encounter Date: 07/29/19 Encounter Time: 10:10 Subjective: talking over the phone, doing well. ambualting - have seen her periodically just outside our front door. no acute c/o. tolerating CLD - Objective Vital Signs & Weight: Vital Signs (12 hours) Temp Pulse Resp BP BP Pulse Ox 07/29/19 07:34 97.9 F 92 18 125/82 96 07/29/19 03:04 98.0 F 87 18 105/68 97 07/29/19 00:28 98.0 F 97 18 117/78 95 Weight Admit Weight 108 lb 14.4 oz Weight 133 lb 6.4 oz I&O: 07/28/19 07/29/19 07/30/19 06:59 06:59 06:59 Intake Total 1989 1919 Balance 1989 1919 Result Diagrams: 07/25/19 06:10 07/28/19 06:23 Additional Labs: Accuchecks 07/29/19 07/29/19 07/28/19 05:12 00:34 18:34 POC Glucose 131 H 107 120 H 07/28/19 12:10 POC Glucose 105 Hospitalist ROS - Medication Medications: Active Medications Generic Name Dose Route Start Last Admin Trade Name Freq PRN Reason Stop Dose Admin Duloxetine HCl 60 mg 07/18/19 21:00 07/29/19 08:39 Cymbalta PO 60 mg BID JM Administration Enoxaparin Sodium 40 mg 07/19/19 09:00 07/29/19 08:40 Lovenox SC 40 mg 0900 JM Administration Levothyroxine Sodium 50 mcg 07/27/19 06:00 07/29/19 05:48 Synthroid PO 50 mcg 0600 JM Administration Metoclopramide HCl 10 mg 07/28/19 07:30 07/29/19 06:40 Reglan PO 10 mg ACHS JM Administration Nicotine 7 mg 07/18/19 18:00 07/28/19 18:06 Nicoderm Patch TD 7 mg Q24HR JM Administration Nystatin 500,000 units 07/27/19 21:00 07/29/19 08:39 Mycostatin SSW 500,000 units TID JM Administration Ondansetron HCl 4 mg 07/21/19 14:52 07/25/19 08:43 Zofran IVP 4 mg Q6H PRN Administration Nausea/Vomiting Pantoprazole Sodium 40 mg 07/18/19 21:00 07/29/19 08:40 Protonix IVP 40 mg Q12HR JM Administration Sodium Chloride 10 ml 07/20/19 18:55 07/26/19 21:31 Flush - Normal Saline IVF 10 ml PRN PRN Administration Saline Flush Zolpidem Tartrate 5 mg 07/21/19 14:52 07/28/19 22:24 Ambien PO 5 mg HSPRN PRN Administration Insomnia - Exam General Appearance: NAD, awake alert Eye: PERRL ENT: normocephalic atraumatic Neck: supple, no JVD Heart: RRR, no murmur Respiratory: CTAB, no wheezes, no rales, normal chest expansion Gastrointestinal: soft, normal bowel sounds Hosp A/P - Plan (1) KORINA (acute kidney injury) Code(s): N17.9 - ACUTE KIDNEY FAILURE, UNSPECIFIED Status: Acute (2) Abdominal pain Code(s): R10.9 - UNSPECIFIED ABDOMINAL PAIN Status: Acute (3) HLD (hyperlipidemia) Code(s): E78.5 - HYPERLIPIDEMIA, UNSPECIFIED Status: Acute (4) HTN (hypertension) Code(s): I10 - ESSENTIAL (PRIMARY) HYPERTENSION Status: Acute (5) Nausea & vomiting Code(s): R11.2 - NAUSEA WITH VOMITING, UNSPECIFIED Status: Acute (6) Pyloric stenosis Code(s): K31.1 - ADULT HYPERTROPHIC PYLORIC STENOSIS Status: Acute s/p (7) Severe protein-calorie malnutrition Code(s): E43 - UNSPECIFIED SEVERE PROTEIN-CALORIE MALNUTRITION Status: Acute (8) Hypercalcemia Code(s): E83.52 - HYPERCALCEMIA Status: Acute -ca normalized - her PTH is on the low end. may need to repeat after 2 to 3 wks given the s/p sux - fw with TSH level. -s/p s/p renaldo-en-y on 07/20. 07/23 pt will need to be on dexilant on discharge per GI recommendation. she is currently on protonix. pt to have a upper gi series. she still has a ng tube. will check labs in am. Her hypercalcemia ( most likley due to dehydration) has resolved. PTh normal. - upper GI series - - will follow through after her procedure today starting diet, per sux. routine labs. -ca normalized - her PTH is on the low end. may need to repeat after 2 to 3 wks given the s/p sux - fw with TSH level. 11 Hypothyroidism -pt is not on supplement - will start her on low dose and inc in 2 to 3 days. -need TSH repeat in 3 wks. UPPER GI series on - no high grade obstruction on TPN now. - started on CLD - CW TPN -periodic am labs. 13 Delayed gastric emptying -slowly advancing the diet -currently on FLD and protein supplem.. drinks. Hypomagnesemia Hypophosphatemia --being replaced -repeat level in am. 14 --mg replaced and nl range - PO4 still low - supplementing w.. Na/K phos -advancing the diet per surgery.
[2019-07-29] MEDS: Promethazine HCl 25 MG/ML VIAL IM/IV SCH ×3 (12:05→20:13)
[2019-07-29] MEDS: PHOS-NAK 1 PKT PACK PO SCH ×2 (12:39→16:53)
[2019-07-29] MEDS: HYDROcodone/Acetaminophen 5/325 mg Tablet PO PRN ×2 (12:40→18:43)
--- NOTE | 2019-07-29 15:06 | PRG ---
DATE OF SERVICE: 07/29/2019 SUBJECTIVE: Sharmin Lafleur is doing well. She is demanding her Phenergan IM every 4-6 hours. She is tolerating liquids without nausea or vomiting. She has passed flatus. She is on full liquids. She has a [employer]FF[employer] demand only. OBJECTIVE: LUNGS: Clear to auscultation. CARDIAC: Regular rate and rhythm. No murmur or gallop. ABDOMEN: Soft. Bowel sounds present. Nondistended. Wound looks good. EXTREMITIES: Unremarkable. ASSESSMENT AND PLAN: Status post Imer-en-Y antecolic gastrojejunostomy for gastric outlet obstruction. This was performed 07/20/2019. She is 9 days postoperative. At this point, we will remove her osvaldo. She has good activity level and she is going outside to smoke. She is not using her AIRWAY [employer]FF[employer] much and we have agreed to discontinue that. We will convert her to hydrocodone. She states that Ultram is not effective for her and upsets her stomach. I have written hydrocodone prescription in case she is discharged home in the next 1 or 2 days. At this point, I have advanced her diet to full liquids. Advised her to avoid breads, salads, and fiber and only take small bites of chicken and fish, chew it well, small portions and slowly advance as tolerated. She has protein supplements. At this point, her TPN is adjusted and IV fluids discontinued and hopefully she will tolerate her diet and consume enough calories to be able to be discharged home over the weekend. Reglan elixir is being used to help gastric emptying. She is taking this a.c. and at bedtime. Dr. Millan is covering the weekend. Dr. Jones cover on Thursday. She will probably go home on this dietary regimen and slowly advance it over the weeks to come as her gastric emptying improves. Job ID: [id number]
[2019-07-29] MEDS: Nicotine 7 MG PATCH TD SCH (18:42)
[2019-07-29] MEDS: Zolpidem Tartrate 5 MG TAB PO PRN (20:13)
[2019-07-29] MEDS ORDERED: Fat Emulsion 250 ML, Multivitamins, Adult 10 ML, Multitrace-5 5 ML in D15W-AA 5% with L... IV SCH (22:00)
[2019-07-29] MEDS: FAT EMULSION IV SCH (22:35)
[2019-07-29] MEDS: POTASSIUM PHOSPHATE IV SCH (22:35)
[2019-07-29] MEDS: [UNRECOGNIZED DRUG - OTHER] IV SCH (22:35)
[2019-07-30] MEDS: Ondansetron PF 4 MG/2 ML Vial IVP PRN (03:10)
[2019-07-30] MEDS: HYDROcodone/Acetaminophen 5/325 mg Tablet PO PRN ×4 (03:10→20:57)
[2019-07-30] MEDS: Levothyroxine Sodium 50 MCG TAB PO SCH (05:51)
[2019-07-30 06:47] LABS: #Eosinphils 0.4 thou/uL (0.0-0.7); #Lymphocytes 2.2 thou/uL (1.20-3.40); #Monocytes 0.8 thou/uL (0.11-0.59); #Neutrophils 3.4 thou/uL (1.40-6.50); %Basophils 0.7 % (0.0-1.0); %Eosinophils 6.3 % (0.0-10.0); %Lymphocytes 32.2 % (21.0-51.0); %Monocytes 11.7 % (0.0-10.0); %Neutrophils 49.1 % (42.0-75.0); Hemoglobin 9.6 g/dL (12.0-16.0); Mean Corpuscular HGB CONC 32.1 g/dL (32.0-36.0); Mean Corpuscular Hemoglobin 29.7 pg (27.0-31.0); Mean Corpuscular Volume 92.6 fL (78.0-98.0); Platelet Count 285 thou/uL (130-400); RBC Distribution Width 14.3 % (11.5-14.5); Red Blood Cell (RBC) Count 3.24 mill/uL (4.20-5.40); White Blood Cell (WBC) Count 6.9 thou/uL (4.8-10.8)
[2019-07-30 06:53] LABS: ALT (SGPT) 14 U/L (8-55); AST (SGOT) 36 U/L (5-34); Albumin 3.1 g/dL (3.5-5.0); Alkaline Phosphatase 96 U/L (40-110); Anion Gap 12 mmol/L (10-20); BUN (Urea Nitrogen) 18 mg/dL (7.0-18.7); Bilirubin, Total 0.2 mg/dL (0.2-1.2); Calc. Creatinine Clearance 99 mL/min (70-130); Calcium 8.3 mg/dL (7.8-10.44); Carbon Dioxide 30 mmol/L (22-29); Chloride 104 mmol/L (98-107); Estimated GFR-MDRD Greater than 90; Globulin 2.9 g/dL (2.4-3.5); Glucose 88 mg/dL (70-105); Phosphorus 4.6 mg/dL (2.3-4.7); Potassium 4.8 mmol/L (3.5-5.1); Sodium 141 mmol/L (136-145)
[2019-07-30] MEDS: Nystatin 500,000 UNITS/5 ML UDCUP SSW SCH ×3 (08:15→20:59)
[2019-07-30] MEDS: DULoxetine 60 MG CAP PO SCH ×2 (08:15→20:58)
[2019-07-30] MEDS: PHOS-NAK 1 PKT PACK PO SCH ×3 (08:15→17:16)
[2019-07-30] MEDS: Metoclopramide HCl 10 MG TAB PO SCH ×4 (08:15→20:56)
[2019-07-30] MEDS: Enoxaparin Sodium 40 MG/0.4 ML SYRINGE SC SCH (08:16)
[2019-07-30] MEDS: Promethazine HCl 25 MG/ML VIAL IM/IV SCH ×4 (08:45→21:00)
--- NOTE | 2019-07-30 13:03 | PDOC.HOSPP ---
- Subjective Subjective: Patient walking the halls, ambulates to and from the hospital to smoke cigarettes. Has been tolerating liquid diet. Some nausea, better with PRN medications. She has tried a small amount of food. She has been passing but, no bowel movements. Time was given for questions, all answered in detail. - Objective Vital Signs & Weight: Vital Signs (12 hours) Temp Pulse Resp BP BP Pulse Ox 07/30/19 12:00 97.6 F 106 H 16 134/78 94 L 07/30/19 08:14 94 L 07/30/19 07:34 98.0 F 79 16 132/78 94 L 07/30/19 04:00 98.3 F 97 16 133/80 95 Weight Admit Weight 108 lb 14.4 oz Weight 133 lb 6.4 oz I&O: 07/29/19 07/30/19 07/31/19 06:59 06:59 06:59 Intake Total 1920 1320 240 Balance 1920 1320 240 Result Diagrams: 07/30/19 06:00 07/30/19 06:00 Additional Labs: Accuchecks 07/30/19 07/29/19 07/29/19 06:05 23:41 15:44 POC Glucose 101 114 H 105 Radiology Reviewed by me: Yes Hospitalist ROS - Review of Systems All other systems reviewed; all pertinent +/- noted in HPI/Subj - Medication Medications: Active Medications Generic Name Dose Route Start Last Admin Trade Name Freq PRN Reason Stop Dose Admin Hydrocodone Bitart/Acetaminophen 1 tab 07/29/19 09:35 07/30/19 08:45 [place] 5/325 PO 1 tab QIDPRN PRN Administration Pain Duloxetine HCl 60 mg 07/18/19 21:00 07/30/19 08:15 Cymbalta PO 60 mg BID JM Administration Enoxaparin Sodium 40 mg 07/19/19 09:00 07/30/19 08:16 Lovenox SC 40 mg 0900 JM Administration Fat Emulsion Intravenous 250 2,273.2594 mls @ 93.75 mls/hr 07/29/19 22:00 22:35 ml/ Potassium Phosphate 10 IV 2,273.2594 mls mmol/ Magnesium Sulfate 20 meq 2200 JM Administration / Multivitamins 10 ml/ Chromium/Copper/Manganese/ Seleni/Zn 5 ml/ Amino Acids/ Electrolytes Levothyroxine Sodium 50 mcg 07/27/19 06:00 07/30/19 05:51 Synthroid PO 50 mcg 0600 JM Administration Metoclopramide HCl 10 mg 07/28/19 07:30 07/30/19 11:00 Reglan PO 10 mg ACHS JM Administration Miscellaneous Medication 2 pkt 07/29/19 12:00 07/30/19 10:58 Phos-Nak PO Not Given TID-WM JM Nicotine 7 mg 07/18/19 18:00 07/29/19 18:42 Nicoderm Patch TD 7 mg Q24HR JM Administration Nystatin 500,000 units 07/27/19 21:00 07/30/19 08:15 Mycostatin SSW 500,000 units TID JM Administration Ondansetron HCl 4 mg 07/21/19 14:52 07/30/19 03:10 Zofran IVP 4 mg Q6H PRN Administration Nausea/Vomiting Pantoprazole Sodium 40 mg 07/30/19 09:00 07/30/19 08:15 Protonix PO 40 mg DAILY JM Administration Promethazine HCl 12.5 mg 07/29/19 13:00 07/30/19 08:45 Phenergan IM/IV 12.5 mg QID JM Administration Sodium Chloride 10 ml 07/20/19 18:55 07/26/19 21:31 Flush - Normal Saline IVF 10 ml PRN PRN Administration Saline Flush Zolpidem Tartrate 5 mg 07/21/19 14:52 07/29/19 20:13 Ambien PO 5 mg HSPRN PRN Administration Insomnia - Exam General Appearance: NAD Eye: PERRL, anicteric sclera ENT: normocephalic atraumatic, moist mucosa Neck: supple, symmetric Heart: RRR, no murmur, no gallops, no rubs Respiratory: CTAB, no wheezes, no rales, no ronchi, normal chest expansion Gastrointestinal: soft, non-tender, no guarding, no rigidity Gastrointestinal - other findings: Midline abdominal incision with clean dressing in position Extremities: no edema Skin: no lesions, no rashes Neurological: cranial nerve grossly intact, no weakness Musculoskeletal: no muscle wasting Psychiatric: normal affect, normal behavior, A&O x 3 Hosp A/P (1) Abdominal pain Code(s): R10.9 - UNSPECIFIED ABDOMINAL PAIN Status: Acute (2) KORINA (acute kidney injury) Code(s): N17.9 - ACUTE KIDNEY FAILURE, UNSPECIFIED Status: Acute (3) Severe protein-calorie malnutrition Code(s): E43 - UNSPECIFIED SEVERE PROTEIN-CALORIE MALNUTRITION Status: Acute (4) Nausea & vomiting Code(s): R11.2 - NAUSEA WITH VOMITING, UNSPECIFIED Status: Acute (5) Pyloric stenosis Code(s): K31.1 - ADULT HYPERTROPHIC PYLORIC STENOSIS Status: Acute (6) HTN (hypertension) Code(s): I10 - ESSENTIAL (PRIMARY) HYPERTENSION Status: Acute (7) HLD (hyperlipidemia) Code(s): E78.5 - HYPERLIPIDEMIA, UNSPECIFIED Status: Acute (8) Hypothyroid Code(s): E03.9 - HYPOTHYROIDISM, UNSPECIFIED Status: Acute (9) Tobacco abuse Code(s): Z72.0 - TOBACCO USE Status: Acute - Plan Plan: medical/surgical unit general surgery consultation, recommendations appreciated gastroenterology consultation, recommendations appreciated status post Imer-en-y on 07/20/2019 perioperative care has been advanced diet per surgery, recommended going slow to avoid nausea and vomiting passing gas, no bowel movement continue other home medications as able continue TPN until adequate oral nutrition can be ensured G.I. prophylaxis DVT prophylaxis
[2019-07-30] MEDS: Nicotine 7 MG PATCH TD SCH (17:16)
--- NOTE | 2019-07-30 20:18 | PRG ---
DATE OF SERVICE: 07/30/2019 SUBJECTIVE: Ms. Lafleur is sitting at bedside at breakfast. She reports having been able to tolerate liquids, in fact she was attempting general diet this morning. She is passing flatus, although has not had any bowel movements. She reports adequate pain control. She ambulates with minimum difficulty. OBJECTIVE: VITAL SIGNS: Include blood pressure 132/78, pulse 79, respiratory rate 16, temperature 98 degrees Fahrenheit, and oxygen saturation is 94% on room air. ABDOMEN: Soft, minimum tenderness to palpation without any distention. Clearly, she has no peritoneal signs on examination. LABORATORY FINDINGS: CBC; 6900 white blood cells, hemoglobin and hematocrit 9.6 and 30.0 respectively. Platelet count is 285,000. Metabolic profile; sodium 141, potassium 4.8, chloride is 104, bicarb is 30, BUN is 18, creatinine is 0.68, and glucose is 88. AST and ALT 36 and 14 respectively. IMPRESSIONS: Postoperative day #10, status post exploratory laparotomy with Imer-en-Y gastrojejunostomy. The patient is beginning to tolerate oral intake. Anticipate discharge within next 24 to 48 hours if she continues to tolerate general diet. Job ID: [id number]
[2019-07-30] MEDS: Zolpidem Tartrate 5 MG TAB PO PRN (21:04)
[2019-07-30] MEDS: FAT EMULSION IV SCH (22:04)
[2019-07-30] MEDS: POTASSIUM PHOSPHATE IV SCH (22:04)
[2019-07-30] MEDS: [UNRECOGNIZED DRUG - OTHER] IV SCH (22:04)
--- NOTE | 2019-07-31 02:18 | PRG ---
DATE OF SERVICE: 07/30/2019 SUBJECTIVE: The patient was seen this evening during rounds. She is resting comfortably and asleep with no signs of acute distress. She is postoperative day #10 after laparotomy and Imer-en-Y gastrojejunostomy. Nursing reported no acute events. OBJECTIVE: VITAL SIGNS: Temperature 97.8, pulse 88, respirations 16, oxygen saturation 98% on room air, and blood pressure 127/79. GENERAL: Well-appearing middle-aged female, lying in bed, asleep with no signs of acute distress. PULMONARY: Equal chest rise and fall. No signs of acute respiratory distress. ASSESSMENT: Postoperative day #10 status post exploratory laparotomy with Imer-en-Y gastrojejunostomy. PLAN: Continue current diet and pain regimen. Continue ambulation. The patient will likely be discharged in the next day or two. Job ID: [id number]
[2019-07-31] MEDS: HYDROcodone/Acetaminophen 5/325 mg Tablet PO PRN ×4 (05:20→23:57)
[2019-07-31] MEDS: Levothyroxine Sodium 50 MCG TAB PO SCH (05:20)
[2019-07-31] MEDS: Metoclopramide HCl 10 MG TAB PO SCH ×4 (06:28→20:07)
[2019-07-31] MEDS: Promethazine HCl 25 MG/ML VIAL IM/IV SCH ×4 (08:29→20:04)
[2019-07-31] MEDS: PHOS-NAK 1 PKT PACK PO SCH ×3 (08:57→17:29)
[2019-07-31] MEDS: DULoxetine 60 MG CAP PO SCH ×2 (08:58→20:07)
[2019-07-31] MEDS: Enoxaparin Sodium 40 MG/0.4 ML SYRINGE SC SCH (08:59)
[2019-07-31] MEDS: Nystatin 500,000 UNITS/5 ML UDCUP SSW SCH ×3 (09:00→20:07)
[2019-07-31] MEDS: Polyethylene Glycol 3350 17 GM Packet PO SCH (10:13)
[2019-07-31] MEDS: Senokot S 8.6-50 MG TAB PO SCH ×2 (10:13→20:07)
--- NOTE | 2019-07-31 12:22 | PRG ---
DATE OF SERVICE: 07/31/2019 SUBJECTIVE: The patient was seen during morning rounds. Awake, alert, no distress. The patient does report some mild nausea. The patient has been walking frequently. The patient still has not had a bowel movement. The patient continues to receive TPN at this time. The patient does report passing gas. The patient's pain control is adequate. OBJECTIVE: VITAL SIGNS: Temperature 97.8, pulse 79, respirations 14, SpO2 of 95% on room air, blood pressure 123/75. GENERAL: Well-appearing, middle-aged female, awake, alert, no distress. ABDOMEN: Soft. Minimal tenderness to palpation. No distention. EXTREMITIES: Moves all extremities. No focal deficits. LABORATORY DATA: There are no new labs to evaluate today. IMPRESSION: Postop day #11 status post exploratory laparotomy with Imer-en-Y gastrojejunostomy. PLAN: Continue to have the patient ambulate frequently. Continue TPN, this will be the patient's last bag which will complete tonight. The patient will most likely be able to be discharged home tomorrow morning as she can tolerate a general diet. The patient was examined by Dr. Millan during morning rounds. Job ID: [id number]
--- NOTE | 2019-07-31 13:03 | PDOC.HOSPP ---
- Subjective Encounter Date: 07/31/19 Encounter Time: 12:55 Subjective: f/u s/p laparotomy with Imer-en-Y gastrojejunostomy POD #11. Tolerating po intake and completing TPN today. - Objective Vital Signs & Weight: Vital Signs (12 hours) Temp Pulse Resp BP Pulse Ox 07/31/19 11:35 98.2 F 92 14 120/82 96 07/31/19 07:03 97.8 F 79 14 123/75 95 07/31/19 03:55 97.9 F 82 16 126/77 96 Weight Admit Weight 108 lb 14.4 oz Weight 133 lb 6.4 oz I&O: 07/30/19 07/31/19 08/01/19 06:59 06:59 06:59 Intake Total 1320 4110 Balance 1320 4110 Result Diagrams: 07/30/19 06:00 07/30/19 06:00 Additional Labs: Accuchecks 07/31/19 07/31/19 07/30/19 11:41 05:27 23:51 POC Glucose 113 H 117 H 117 H 07/30/19 07/30/19 07/30/19 21:23 17:25 15:15 POC Glucose 139 H 96 105 Hospitalist ROS - Medication Medications: Active Medications Generic Name Dose Route Start Last Admin Trade Name Freq PRN Reason Stop Dose Admin Hydrocodone Bitart/Acetaminophen 1 tab 07/29/19 09:35 07/31/19 10:12 [place] 5/325 PO 1 tab QIDPRN PRN Administration Pain Duloxetine HCl 60 mg 07/18/19 21:00 07/31/19 08:58 Cymbalta PO 60 mg BID JM Administration Enoxaparin Sodium 40 mg 07/19/19 09:00 07/31/19 08:59 Lovenox SC 40 mg 0900 JM Administration Fat Emulsion Intravenous 250 2,273.2594 mls @ 93.75 mls/hr 07/29/19 22:00 22:04 ml/ Potassium Phosphate 10 IV 2,273.2594 mls mmol/ Magnesium Sulfate 20 meq 2200 JM Administration / Multivitamins 10 ml/ Chromium/Copper/Manganese/ Seleni/Zn 5 ml/ Amino Acids/ Electrolytes Levothyroxine Sodium 50 mcg 07/27/19 06:00 07/31/19 05:20 Synthroid PO 50 mcg 0600 JM Administration Metoclopramide HCl 10 mg 07/28/19 07:30 07/31/19 11:38 Reglan PO 10 mg ACHS JM Administration Miscellaneous Medication 2 pkt 07/29/19 12:00 07/31/19 11:39 Phos-Nak PO Not Given TID-WM JM Nicotine 7 mg 07/18/19 18:00 07/30/19 17:16 Nicoderm Patch TD 7 mg Q24HR JM Administration Nystatin 500,000 units 07/27/19 21:00 07/31/19 09:00 Mycostatin SSW 500,000 units TID JM Administration Ondansetron HCl 4 mg 07/21/19 14:52 07/30/19 03:10 Zofran IVP 4 mg Q6H PRN Administration Nausea/Vomiting Pantoprazole Sodium 40 mg 07/30/19 09:00 07/31/19 08:58 Protonix PO 40 mg DAILY JM Administration Polyethylene Glycol 17 gm 07/31/19 09:00 07/31/19 10:13 Miralax PO 17 gm DAILY JM Administration Promethazine HCl 12.5 mg 07/29/19 13:00 07/31/19 08:29 Phenergan IM/IV 12.5 mg QID JM Administration Senna/Docusate Sodium 2 tab 07/31/19 09:00 07/31/19 10:13 Senokot S PO 2 tab BID JM Administration Sodium Chloride 10 ml 07/20/19 18:55 07/26/19 21:31 Flush - Normal Saline IVF 10 ml PRN PRN Administration Saline Flush Zolpidem Tartrate 5 mg 07/21/19 14:52 07/30/19 21:04 Ambien PO 5 mg HSPRN PRN Administration Insomnia - Exam General Appearance: NAD, awake alert Eye: PERRL, anicteric sclera ENT: normocephalic atraumatic, no oropharyngeal lesions Neck: supple, symmetric, no JVD, no thyromegaly, no lymphadenopathy Heart: RRR, no murmur, no gallops, no rubs, normal peripheral pulses Respiratory: CTAB, no wheezes, no rales, no ronchi, normal chest expansion Gastrointestinal: soft, non-distended, normal bowel sounds, no palpable masses Gastrointestinal - other findings: midline incision CDI Extremities: no cyanosis, no clubbing, no edema Skin: normal turgor, no lesions Neurological: cranial nerve grossly intact, no new deficit Musculoskeletal: normal tone, normal strength Psychiatric: normal affect, A&O x 3 Hosp A/P (1) Abdominal pain Code(s): R10.9 - UNSPECIFIED ABDOMINAL PAIN Status: Acute Qualifiers: Abdominal location: generalized Qualified Code(s): R10.84 - Generalized abdominal pain Plan: Resolved, see below for mgmt (2) Pyloric stenosis Code(s): K31.1 - ADULT HYPERTROPHIC PYLORIC STENOSIS Status: Chronic Plan: s/p Imer-en-Y gastrojejunostomy POD #11, stable currently (3) Hypothyroid Code(s): E03.9 - HYPOTHYROIDISM, UNSPECIFIED Status: Acute Plan: Continue Levothyroxine, serial monitoring as outpatient (4) Severe protein-calorie malnutrition Code(s): E43 - UNSPECIFIED SEVERE PROTEIN-CALORIE MALNUTRITION Status: Acute Plan: TPN completing today, regular po intake, Vit B12/MVI supplementation - Plan social work associate, out of bed/ambulate, DVT proph w/SCDs Stable currently Continue TPN to complete current bag OOB/ambulate MVI/Vit B12 supplementation Ensure Enlive BID Likely home in am
[2019-07-31] MEDS: Nicotine 7 MG PATCH TD SCH (18:29)
[2019-07-31] MEDS: Zolpidem Tartrate 5 MG TAB PO PRN (20:07)
--- NOTE | 2019-08-01 02:20 | PRG ---
DATE OF SERVICE: 07/31/2019 SUBJECTIVE: The patient was seen this evening during rounds. She was resting comfortably and asleep with no signs of acute distress. Nursing reported no acute events. She is tolerating regular diet. OBJECTIVE: VITAL SIGNS: Temperature 98.1, pulse 92, respirations 16, oxygen saturation 96% on room air, blood pressure 124/76. GENERAL: Well-appearing middle-aged female, lying on the right side, asleep with no signs of acute distress. PULMONARY: Equal chest rise and fall. No signs of acute respiratory distress. ASSESSMENT: Postop day #11 status post exploratory laparotomy with Imer-en-Y gastrojejunostomy. PLAN: Continue current regular diet. Continue pain regimen. Continue ambulation. We will discontinue TPN after the current bag is completed. The patient will be ready for discharge by tomorrow. Dr. Castaneda will take over at that time. Job ID: [id number]
[2019-08-01] MEDS: Levothyroxine Sodium 50 MCG TAB PO SCH (05:09)
[2019-08-01] MEDS: Metoclopramide HCl 10 MG TAB PO SCH ×3 (06:34→16:24)
[2019-08-01] MEDS: HYDROcodone/Acetaminophen 5/325 mg Tablet PO PRN ×3 (06:34→14:53)
[2019-08-01] MEDS: Promethazine HCl 25 MG/ML VIAL IM/IV SCH ×3 (08:36→16:18)
[2019-08-01] MEDS: Polyethylene Glycol 3350 17 GM Packet PO SCH (08:43)
[2019-08-01] MEDS: Enoxaparin Sodium 40 MG/0.4 ML SYRINGE SC SCH (08:44)
[2019-08-01] MEDS: Senokot S 8.6-50 MG TAB PO SCH (08:45)
[2019-08-01] MEDS: PHOS-NAK 1 PKT PACK PO SCH ×2 (08:45→11:43)
[2019-08-01] MEDS: DULoxetine 60 MG CAP PO SCH (08:45)
[2019-08-01] MEDS: Nystatin 500,000 UNITS/5 ML UDCUP SSW SCH ×2 (08:45→14:54)
--- NOTE | 2019-08-01 10:46 | PDOC.GSPN ---
Surgery Progress Note: Subj - Subjective Narrative: Patient is S/P exploratory laparotomy with Imer-en-Y gastrojejunostomy POD #12. Patient did well overnight and reports finishing her last bag of TPN yesterday. She reports mild nausea alleviated with oral medication, tolerating regular diet , and passing flatus, however still has not had a bowel movement. She has moderate sore abdominal pain in RLQ and LLQ and over wound site, however it is well controlled. She ambulates frequently in the hallways, the last activity being this morning. She denies fever, chills, vomiting, abdominal cramping, pain , or distension, or wound erythema or discharge. Surgery Progress Note: Obj - Vital signs Vital signs: Vital Signs - Most Recent Temp Pulse Resp BP Pulse Ox 98.5 F 82 14 130/80 92 L 08/01/19 07:29 08/01/19 07:29 08/01/19 07:29 08/01/19 07:29 08/01/19 08:00 - Physical Exam General: no distress, well developed, well nourished Cardiovascular: regular rate and rhythm, no murmur Respiratory: clear to auscultation, normal expansion, normal respiratory effort , breath sounds present Abdomen: soft, nondistended, positive bowel sounds, appropriately tender (LLQ, RLQ and over midline incision) Psychiatric: memory intact, oriented to time, oriented to person, oriented to place, speech is normal Wound: dressing clean,dry,intact (Reports last dressing change yesterday) Surgery Progress Note: Results - Labs Result Diagrams: 07/30/19 06:00 07/30/19 06:00 Lab results: Laboratory Results - last 24 hr 08/01/19 08/01/19 00:03 05:15 POC Glucose 95 104 Surgery Progress Note: A/P - Plan Plan: Assessment: 1. S/P exploratory laparotomy with Imer-en-Y gastrojejunostomy 2. Gastric outlet obstruction, resolved Plan: Continue regular diet and PO pain and nausea regimen. Will continue to encourage frequent ambulation, TID at minimum to stimulate bowel function. NG tube is out and TPN is discontinued. Will anticipate discharge today
[2019-08-01 11:41] VITALS: BMI 21.8
[2019-08-01 15:24] VITALS: BP 108/75; TEMP 98.1
--- NOTE | 2019-08-02 01:31 | DIS ---
DATE OF ADMISSION: 07/18/2019 DATE OF DISCHARGE: 08/01/2019 ADMISSION DIAGNOSES: Intractable abdominal pain, vomiting. DISCHARGE DIAGNOSES: 1. Intractable abdominal pain. 2. Vomiting. 3. Gastric outlet obstruction. 4. Pyloric stenosis. PROCEDURES: EGD and Imer-en-Y gastrojejunostomy by Dr. Castaneda without complication. Staff, Dr. Castaneda. CONDITION ON DISCHARGE: Improved. HOSPITAL COURSE: The patient was admitted and ultimately found to have gastric outlet obstruction secondary to pyloric stenosis. She underwent a Imer-en-Y gastrojejunostomy Dr. Castaneda without complication. Postop course was complicated by prolonged gastric emptying issues. Initial barium swallow study showed no leakage from the stomach. However, after prolonged bowel rest, conservative measures and TPN, her gastrojejunostomy limb did open up and she was slowly able to be advanced to a regular diet. On the day of discharge, she is doing well. She will be discharged home and prescriptions for hydrocodone and Zofran were sent home with her. See hospital chart for details of the hospitalization. Job ID: [id number]
--- NOTE | 2019-08-02 02:28 | DIS ---
DATE OF ADMISSION: 07/18/2019 DATE OF DISCHARGE: 08/01/2019 DISCHARGE DIAGNOSES: 1. Abdominal pain secondary to pyloric stenosis. 2. Pyloric stenosis status post Imer-en-Y gastrojejunostomy. 3. Severe protein-calorie malnutrition, improved. 4. Hypothyroidism. 5. Tobacco abuse. 6. Nausea and vomiting secondary to #2. 7. Hypertension, stable. CONSULTATIONS: 1. Dr. Small and Dr. Ruiz with GI Service. 2. Dr. Castaneda with General Surgery Service. PERTINENT LABORATORY AND X-RAY FINDINGS: TSH 20.39. Albumin ranged between 3.1 to 4.7. CBC showed a white blood cell count ranging between 6.9 to 12.6, hemoglobin ranging between 8.[address] of the abdomen and pelvis dated 07/18/2019, showed no acute process. Abdominal radiographs dated 07/19/2019, showed nasogastric tube terminating in the stomach. Upper GI series dated 07/22/2019, showed postoperative changes in the stomach with severe hypomotility and high-grade outlet obstruction. Abdominal radiographs dated 07/23/2019, showed transition of Gastrografin through the stomach. Upper GI series dated 07/25/2019, showed no evidence of high-grade obstruction. HOSPITAL COURSE: The patient was initially admitted after presenting with associated nausea and vomiting and abdominal pain in the context of severe pyloric stenosis. The patient underwent evaluation including CT imaging of the abdomen and pelvis. The patient was evaluated by CT of the abdomen and pelvis, initially showing no acute process. The patient was evaluated by the GI Service, who recommended surgical evaluation given the chronic nature of the pyloric stenosis with associated weight loss and protein-calorie malnutrition. The patient underwent laparotomy with Imer-en-Y gastrojejunostomy on 07/20/2019. The patient was managed postoperatively with continuation of total parenteral nutrition with overall stabilization and slow resolution of transit and peristalsis through the gastric outlet obstruction. Serial abdominal and upper GI series were obtained showing eventual resolution of the gastric outlet obstruction. The patient received IV fluids in addition to nutritional support with TPN overall clinically stabilizing. The patient did have residual nausea and vomiting, treated with antiemetics including Phenergan and Reglan. The patient eventually had a sustained bowel movement on 08/01/2019 and has been cleared by General Surgery Service for discharge. I have examined the patient at the time of discharge and discussed followup instructions. The patient verbalized understanding and agreement ready for discharge on 08/01/2019. DISCHARGE MEDICATIONS: 1. Acetaminophen with codeine 300/60 mg 1 tablet p.o. q.6 hours p.r.n. pain. 2. Vitamin B12 of 1000 mcg p.o. daily. 3. Dexilant 60 mg p.o. daily. 4. Cymbalta 60 mg p.o. b.i.d. 5. Gabapentin 300 mg p.o. q.i.d. 6. vitamin 1 tablet p.o. daily. 7. Phenergan 25 mg p.o. q.6 hours p.r.n. nausea and vomiting. 8. Trokendi XR 100 mg p.o. b.i.d. 9. Levothyroxine 50 mcg p.o. daily. FOLLOWUP: The patient will follow up with her primary care provider, Cindy Valdez. The patient will follow up with Dr. Ethan Castaneda within 14 days of discharge. CONDITION ON DISCHARGE: Stable. ACTIVITY: Ad-shonda. DIET: Regular. CODE STATUS: Full. DISPOSITION: Home, 08/01/2019. TIME SPENT: Total time preparing and coordinating discharge, 36 minutes. Job ID: [id number]
== END 2019-08-01 16:34 | disposition home or self-care (01) | DRG 326 ==
LOC: ERS 11:18 → ERHOLD 15:38 → 2NO 23:47 → SURG A 07-20 14:10
PROVIDERS: ADMIT Internal Medicine; ATTEND Internal Medicine
PROC: 0D160ZA Bypass Stomach to Jejunum, Open Approach (ICD-10-PCS; principal; 2019-07-20)
PROC: 05H633Z Insertion of Infusion Device into Left Subclavian Vein, Percutaneous Approach (ICD-10-PCS; 2019-07-20)
PROC: 3E0436Z Introduction of Nutritional Substance into Central Vein, Percutaneous Approach (ICD-10-PCS; 2019-07-31)
DX: K31.1 Adult hypertrophic pyloric stenosis (principal); E43 Unspecified severe protein-calorie malnutrition; N17.9 Acute kidney failure, unspecified; Z90.710 Acquired absence of both cervix and uterus; F17.210 Nicotine dependence, cigarettes, uncomplicated; E83.52 Hypercalcemia; E78.5 Hyperlipidemia, unspecified; K21.9 Gastro-esophageal reflux disease without esophagitis; F32.9 Major depressive disorder, single episode, unspecified; E03.9 Hypothyroidism, unspecified; I12.9 Hypertensive chronic kidney disease with stage 1 through stage 4 chronic kidney disease, or unspecified chronic kidney disease; N18.2 Chronic kidney disease, stage 2 (mild); E86.0 Dehydration; E78.00 Pure hypercholesterolemia, unspecified; F12.10 Cannabis abuse, uncomplicated; E83.42 Hypomagnesemia; E83.39 Other disorders of phosphorus metabolism; Z68.21 Body mass index [BMI] 21.0-21.9, adult; Z90.49 Acquired absence of other specified parts of digestive tract; Z88.6 Allergy status to analgesic agent; R60.9 Edema, unspecified; R11.2 Nausea with vomiting, unspecified
CPT/HCPCS: 36415; 36416; 71045; 74018; 74177; 74240; 80048; 80053; 81003; 82941; 83690; 83735; 83970; 84100; 84443; 85025; 93005; 96361; 96374; 96376; A4217; C9113; J0670; J1100; J1450; J1650; J1885; J1940; J1956; J2001; J2250; J2405; J2550; J2704; J3010; J3475; J3480; J3490; Q0169; Q9963; Q9967; S0028

== ENCOUNTER 2020-03-19 10:11 | Outpatient (CLI) | payer MEDICARE, MEDICAID ==
--- NOTE | 2020-03-19 11:02 | BD ---
EXAM: Bone densitometry using DEXA HISTORY: 44 yo female. Screening for postmenopausal osteoporosis FINDINGS: Right femoral neck--bone mineral density0.633; T score -1.9 ; Z score -1.4 Total proximal right femur--bone mineral density 0.713; T score -1.9 ; Z score -1.5 Left femoral neck--bone mineral density0.598; T score -2.3 ; Z score -1.7 Total proximal left femur--bone mineral density 0.692; T score -2.0 ; Z score -1.7 IMPRESSION: Osteopenia
--- NOTE | 2020-03-19 13:15 | MMO ---
Bilateral MAMMO Bilat Screen [facility]. CLINICAL HISTORY: Patient is 44 years old and is seen for screening. The patient has the following family history of breast cancer: maternal grandmother. The patient has a history of cervical cancer at age 30. VIEWS: The views performed were: bilateral craniocaudal with tomosynthesis and bilateral mediolateral oblique with tomosynthesis. FILMS COMPARED: The present examination has been compared to a prior imaging study performed at [facility] on 03/05/2017. This study has been interpreted with the assistance of computer-aided detection. MAMMOGRAM FINDINGS: There are scattered fibroglandular densities. There are no suspicious masses, suspicious calcifications, or new areas of architectural distortion. IMPRESSION: THERE IS NO MAMMOGRAPHIC EVIDENCE OF MALIGNANCY. A ROUTINE FOLLOW-UP MAMMOGRAM IN 1 YEAR IS RECOMMENDED. THE RESULTS OF THIS EXAM WERE SENT TO THE PATIENT. ACR BI-RADS Category 1 - Negative MAMMOGRAPHY NOTE: 1. A negative mammogram report should not delay a biopsy if a dominant of clinically suspicious mass is present. 2. Approximately 10% to 15% of breast cancers are not detected by mammography. 3. Adenosis and dense breasts may obscure an underlying neoplasm. Reported by: LEONCIO PETTY MD Electonically Signed: [id number]
== END 2020-03-19 10:12 | disposition home or self-care (01) ==
LOC: BICMAMMO 10:11
PROVIDERS: ATTEND Nurse Practitioner Family
DX: Z12.31 Encounter for screening mammogram for malignant neoplasm of breast (principal); Z13.820 Encounter for screening for osteoporosis; M85.89 Other specified disorders of bone density and structure, multiple sites; Z80.3 Family history of malignant neoplasm of breast; Z85.41 Personal history of malignant neoplasm of cervix uteri
CPT/HCPCS: 77063; 77067; 77080

== ENCOUNTER 2020-05-23 11:12 | Outpatient (CLI) | payer MEDICARE, MEDICAID ==
--- NOTE | 2020-05-23 18:48 | RAD ---
THORACIC SPINE SERIES: 05/23/20 HISTORY: Back pain. COMPARISON: A chest x-ray of 07/20/19. Vertebral bodies are demineralized. There is some cupping to the superior and inferior end plates of the some of the mid to lower thoracic vertebral bodies probably related to osteoporosis. No wedge sha ped compression change. Fairly prominent osteophytic changes are present. Pedicles are intact. Retrocardiac parenchymal changes are seen. I favor this represents scarring and difficult to compare to the previous chest x-ray due to the differences in technique. Clinical correlation as to any acute symptoms. IMPRESSION: 1. Arthritic changes of the spine and generalized bony demineralization. 2. Parenchymal changes in the retrocardiac region which I favor are probably old. POS: PHYLLIS
== END 2020-05-23 11:13 | disposition home or self-care (01) ==
LOC: BICRAD 11:12
PROVIDERS: ATTEND Nurse Practitioner Family
DX: M54.6 Pain in thoracic spine (principal); M81.0 Age-related osteoporosis without current pathological fracture; M47.814 Spondylosis without myelopathy or radiculopathy, thoracic region
CPT/HCPCS: 72072

== ENCOUNTER 2020-08-17 06:34 | Day surgery (SDC) | payer MEDICARE, MEDICAID ==
[~2020-08-17 06:34] MED LIST: FLU VACC QS2020-21(6MOS UP)/PF 60 MCG/0.5 ML SYRINGE IM ONE
[2020-08-17 07:41] VITALS: BP 114/70; TEMP 98
== END 2020-08-17 10:05 | disposition home or self-care (01) ==
LOC: RAD 06:34
PROVIDERS: ATTEND Neurological Surgery
PROC: B02B1ZZ Computerized Tomography (CT Scan) of Spinal Cord using Low Osmolar Contrast (ICD-10-PCS; principal; 2020-08-17)
DX: M47.26 Other spondylosis with radiculopathy, lumbar region (principal); M43.16 Spondylolisthesis, lumbar region; M48.061 Spinal stenosis, lumbar region without neurogenic claudication; M51.16 Intervertebral disc disorders with radiculopathy, lumbar region; M47.817 Spondylosis without myelopathy or radiculopathy, lumbosacral region; M96.1 Postlaminectomy syndrome, not elsewhere classified; M47.22 Other spondylosis with radiculopathy, cervical region; M85.89 Other specified disorders of bone density and structure, multiple sites; M79.7 Fibromyalgia; I10 Essential (primary) hypertension; Z79.899 Other long term (current) drug therapy; Z87.891 Personal history of nicotine dependence; Z88.5 Allergy status to narcotic agent
CPT/HCPCS: 72132; 77002

== ENCOUNTER 2021-03-12 10:25 | Outpatient (CLI) | payer MEDICARE, MEDICAID | END 2021-03-12 10:26 | disposition home or self-care (01) | LOC: BICRAD 10:25 | PROVIDERS: ATTEND Nurse Practitioner Family | DX: S22.000A Wedge compression fracture of unspecified thoracic vertebra, initial encounter for closed fracture (principal) | CPT/HCPCS: 72070 ==

== ENCOUNTER 2021-07-09 08:14 | Outpatient (CLI) | payer MEDICARE, MEDICAID | END 2021-07-09 08:15 | disposition home or self-care (01) | LOC: BICMAMMO 08:14 | PROVIDERS: ATTEND Nurse Practitioner Family | DX: Z12.31 Encounter for screening mammogram for malignant neoplasm of breast (principal); M81.0 Age-related osteoporosis without current pathological fracture; Z80.3 Family history of malignant neoplasm of breast; Z85.41 Personal history of malignant neoplasm of cervix uteri; M85.851 Other specified disorders of bone density and structure, right thigh; M85.852 Other specified disorders of bone density and structure, left thigh | CPT/HCPCS: 77063; 77067; 77080 ==

== ENCOUNTER 2022-01-23 07:02 | Day surgery (SDC) | payer OTHER, MEDICAID ==
[2022-01-23 07:40] VITALS: TEMP 98.1; BMI 25.8
[2022-01-23 09:35] VITALS: BP 132/83
[2022-01-23] MEDS ORDERED: Iopamidol-M 200 41% 20 ML VIAL ONE (14:51)
== END 2022-01-23 09:20 | disposition home or self-care (01) ==
LOC: RAD 07:02
PROVIDERS: ATTEND Nurse Practitioner Family
PROC: B01B1ZZ Fluoroscopy of Spinal Cord using Low Osmolar Contrast (ICD-10-PCS; principal; 2022-01-23)
DX: M96.1 Postlaminectomy syndrome, not elsewhere classified (principal); M47.815 Spondylosis without myelopathy or radiculopathy, thoracolumbar region; M47.26 Other spondylosis with radiculopathy, lumbar region; M51.16 Intervertebral disc disorders with radiculopathy, lumbar region; M48.061 Spinal stenosis, lumbar region without neurogenic claudication; M51.37 Other intervertebral disc degeneration, lumbosacral region; Z79.83 Long term (current) use of bisphosphonates; Z79.890 Hormone replacement therapy; Z79.899 Other long term (current) drug therapy; Z88.5 Allergy status to narcotic agent; Z98.1 Arthrodesis status
CPT/HCPCS: 62304; 72100; 72132; Q9966

== ENCOUNTER 2022-08-15 11:11 | Outpatient (CLI) | payer OTHER, MEDICAID | END 2022-08-15 11:12 | disposition home or self-care (01) | LOC: MRI 11:11 | PROVIDERS: ATTEND Nurse Practitioner Family | DX: M47.812 Spondylosis without myelopathy or radiculopathy, cervical region (principal); Z98.1 Arthrodesis status | CPT/HCPCS: 72141 ==

== ENCOUNTER 2023-01-30 08:02 | Outpatient (CLI) | payer OTHER, MEDICAID | END 2023-01-30 08:03 | disposition home or self-care (01) | LOC: BICMAMMO 08:02 | PROVIDERS: ATTEND Family Medicine | DX: Z12.31 Encounter for screening mammogram for malignant neoplasm of breast (principal); N64.89 Other specified disorders of breast; Z85.41 Personal history of malignant neoplasm of cervix uteri; Z80.3 Family history of malignant neoplasm of breast | CPT/HCPCS: 77063; 77067 ==

== ENCOUNTER 2023-02-09 14:07 | Outpatient (CLI) | payer OTHER, MEDICAID | END 2023-02-09 14:08 | disposition home or self-care (01) | LOC: BICMAMMO 14:07 | PROVIDERS: ATTEND Family Medicine | DX: R92.8 Other abnormal and inconclusive findings on diagnostic imaging of breast (principal) | CPT/HCPCS: 77065; G0279 ==

== ENCOUNTER 2023-03-03 09:02 | Outpatient (CLI) | payer OTHER, MEDICAID ==
[2023-03-03] MEDS ORDERED: Magnevist 469MG/ML 20 ML VIAL ONE (10:43)
== END 2023-03-03 09:03 | disposition home or self-care (01) ==
LOC: BICMRI 09:02
PROVIDERS: ATTEND Family Medicine
DX: Z12.2 Encounter for screening for malignant neoplasm of respiratory organs (principal); F17.210 Nicotine dependence, cigarettes, uncomplicated; G43.009 Migraine without aura, not intractable, without status migrainosus; R10.9 Unspecified abdominal pain; R63.4 Abnormal weight loss; M47.814 Spondylosis without myelopathy or radiculopathy, thoracic region; J34.89 Other specified disorders of nose and nasal sinuses
CPT/HCPCS: 70553; 71271; 72072; 72100; A9579

== ENCOUNTER 2023-03-31 12:11 | Outpatient (CLI) | payer OTHER, MEDICAID | END 2023-03-31 12:12 | disposition home or self-care (01) | LOC: LABBT 12:11 | PROVIDERS: ATTEND Surgery | DX: Z01.818 Encounter for other preprocedural examination (principal); K31.1 Adult hypertrophic pyloric stenosis | CPT/HCPCS: 86850; 86900; 86901; 93005; 93010 ==

== ENCOUNTER 2023-03-31 12:30 | Inpatient (IN) | payer OTHER, MEDICAID ==
[2023-03-31 12:38] VITALS: BMI 15.6
[2023-04-02] MEDS ORDERED: Bupivacaine PF 0.5% 30 ML VIAL ONE (09:43)
[2023-04-02] MEDS ORDERED: fentaNYL 50 mcg/mL 1 mL Vial ONE ×7 (09:43→16:25)
[2023-04-02] MEDS ORDERED: Midazolam HCl 2 mg/2 ml Vial ONE (09:43)
[2023-04-02] MEDS ORDERED: SUGAMMADEX SODIUM 200 MG/2 ML VIAL ONE (11:02)
[2023-04-02] MEDS ORDERED: Fentanyl 250 MCG/5 ML VIAL ONE (11:02)
[2023-04-02] MEDS ORDERED: Bupivacaine 0.25% HCL 30 ML VIAL ONE (11:06)
[2023-04-02] MEDS ORDERED: EPINEPHrine 1 MG/ML AMP ONE (11:06)
[2023-04-02] MEDS ORDERED: Sodium Chloride 0.9% 100 ML ONE (11:24)
[2023-04-02] MEDS ORDERED: CEFAZOLIN 2 GM VIAL ONE (11:24)
[2023-04-02] MEDS ORDERED: PROPOFOL 200 MG/20 ML VIAL ONE (11:38)
[2023-04-02] MEDS ORDERED: PHENYLEPHRINE-NS 100 MCG/ML 10 ML SYRINGE ONE (11:38)
[2023-04-02] MEDS ORDERED: ePHEDrine Sulfate 50 MG/10 ML VIAL ONE (11:38)
[2023-04-02] MEDS ORDERED: Dexamethasone 20 MG/5 ML VIAL ONE (11:38)
[2023-04-02] MEDS ORDERED: Lidocaine 1% PF 5 ML VIAL ONE (11:38)
[2023-04-02] MEDS ORDERED: Rocuronium Bromide 10 MG/ML (10ML VIAL) ONE (11:38)
[2023-04-02] MEDS ORDERED: Ondansetron PF 4 MG/2 ML Vial ONE (11:38)
[2023-04-02] MEDS ORDERED: Promethazine HCl 25 MG/ML VIAL IM PRN ×2 (13:44→14:10)
[2023-04-02] MEDS ORDERED: Ondansetron HCl/PF 4 MG/2 ML Vial IVP PRN (13:44)
[2023-04-02] MEDS ORDERED: D5 1/2 NS w/20 mEq KCL 1,000 ML IV SCH (14:10)
[2023-04-02] MEDS ORDERED: Dextrose 5% in Water 1,000 ML IV PRN (14:10)
[2023-04-02] MEDS ORDERED: hydrALAZINE 20 MG/ML VIAL SLOW IVP PRN (14:10)
[2023-04-02] MEDS ORDERED: Dextrose 50% Abboject 50 ML SYRINGE SLOW IVP PRN (14:10)
[2023-04-02] MEDS ORDERED: Ipratropium/Albuterol 3 ML NEB NEB PRN (14:10)
[2023-04-02] MEDS ORDERED: Glucagon 1 MG/ML KIT IM PRN (14:10)
[2023-04-02] MEDS: D5 1/2 NS w/20 mEq KCL 1,000 ML IV SCH (17:26)
[2023-04-02] MEDS: Hydrocodone-Acetamin 15 ML UDCUP PO PRN (19:01)
[2023-04-02] MEDS: Fentanyl 100 MCG/2 ML VIAL SLOW IVP PRN (21:04)
[2023-04-03] MEDS: Hydrocodone-Acetamin 15 ML UDCUP PO PRN (00:52)
[2023-04-03] MEDS: D5 1/2 NS w/20 mEq KCL 1,000 ML IV SCH ×4 (00:52→23:28)
[2023-04-03] MEDS: Fentanyl 100 MCG/2 ML VIAL SLOW IVP PRN ×7 (01:39→23:24)
[2023-04-03] MEDS: Ondansetron PF 4 MG/2 ML Vial IVP PRN ×2 (05:08→20:32)
[2023-04-03 05:36] LABS: #Monocytes 0.8 thou/uL (0.11-0.59); #Neutrophils 6.9 thou/uL (1.40-6.50); %Basophils 0.3 % (0.0-1.0); %Eosinophils 0.1 % (0.0-10.0); %Lymphocytes 22.2 % (21.0-51.0); %Monocytes 8.2 % (0.0-10.0); %Neutrophils 68.8 % (42.0-75.0); Hemoglobin 6.8 g/dL (12.0-16.0); Mean Corpuscular HGB CONC 29.6 g/dL (32.0-36.0); Mean Corpuscular Hemoglobin 22.7 pg (27.0-31.0); Mean Corpuscular Volume 76.7 fl (78.0-98.0); Mean Platelet Volume 8.6 fL (7.4-10.4); Platelet Count 445 10x3/uL (130-400); RBC Distribution Width 19.1 % (11.5-14.5)
[2023-04-03 05:58] LABS: Anion Gap 10 mmol/L (10-20); BUN (Urea Nitrogen) 11 mg/dL (7.0-18.7); Calc. Creatinine Clearance 68 mL/min (70-130); Calcium 8.2 mg/dL (7.8-10.44); Carbon Dioxide 23 mmol/L (22-29); Chloride 107 mmol/L (98-107); Estimated GFR 97; Glucose 107 mg/dL (70-105); Potassium 4.2 mmol/L (3.5-5.1); Sodium 136 mmol/L (136-145)
[2023-04-03] MEDS: Pantoprazole 40 MG VIAL IVP SCH (08:26)
[2023-04-03] MEDS ORDERED: HYDROcodone/Acetaminophen 7.5/325 mg Tablet PO PRN (12:52)
[2023-04-03] MEDS: HYDROcodone/Acetaminophen 7.5/325 mg Tablet PO PRN ×2 (15:15→22:05)
[2023-04-04] MEDS: HYDROcodone/Acetaminophen 7.5/325 mg Tablet PO PRN (02:17)
[2023-04-04] MEDS: Ondansetron PF 4 MG/2 ML Vial IVP PRN (02:18)
[2023-04-04] MEDS: Fentanyl 100 MCG/2 ML VIAL SLOW IVP PRN ×2 (03:49→08:38)
[2023-04-04] MEDS: D5 1/2 NS w/20 mEq KCL 1,000 ML IV SCH ×3 (06:04→16:40)
[2023-04-04] MEDS: Pantoprazole 40 MG VIAL IVP SCH (08:38)
[2023-04-04 08:43] LABS: #Basophils 0.1 thou/uL (0.0-0.2); #Eosinphils 0.1 thou/uL (0.0-0.7); #Monocytes 0.9 thou/uL (0.11-0.59); #Neutrophils 8.9 thou/uL (1.40-6.50); %Basophils 0.4 % (0.0-1.0); %Eosinophils 0.6 % (0.0-10.0); %Lymphocytes 16.5 % (21.0-51.0); %Monocytes 7.8 % (0.0-10.0); %Neutrophils 74.4 % (42.0-75.0); Hematocrit 26.8 % (36.0-47.0); Hemoglobin 7.9 g/dL (12.0-16.0); Mean Corpuscular HGB CONC 29.5 g/dL (32.0-36.0); Mean Corpuscular Hemoglobin 22.5 pg (27.0-31.0); Mean Corpuscular Volume 76.4 fl (78.0-98.0); Mean Platelet Volume 8.6 fL (7.4-10.4); Platelet Count 536 10x3/uL (130-400); RBC Distribution Width 19.4 % (11.5-14.5); Red Blood Cell (RBC) Count 3.51 mill/uL (4.20-5.40)
[2023-04-04 09:08] LABS: Anion Gap 10 mmol/L (10-20); BUN (Urea Nitrogen) 5 mg/dL (7.0-18.7); Calc. Creatinine Clearance 75 mL/min (70-130); Calcium 9.1 mg/dL (7.8-10.44); Carbon Dioxide 26 mmol/L (22-29); Chloride 105 mmol/L (98-107); Estimated GFR 106; Glucose 113 mg/dL (70-105); Potassium 4.8 mmol/L (3.5-5.1); Sodium 136 mmol/L (136-145)
[2023-04-04] MEDS ORDERED: fentaNYL 50 mcg/mL 1 mL Vial SLOW IVP PRN (09:12)
[2023-04-04] MEDS: Acetaminophen 325 MG TAB PO SCH ×3 (10:09→21:29)
[2023-04-04] MEDS: Ketorolac Tromethamine 30 MG/ML VIAL IVP PRN ×2 (10:50→16:39)
[2023-04-04] MEDS: traMADol HCl 50 MG TAB PO PRN ×2 (13:13→21:30)
[2023-04-05] MEDS: Ketorolac Tromethamine 30 MG/ML VIAL IVP PRN ×3 (01:37→15:13)
[2023-04-05] MEDS: D5 1/2 NS w/20 mEq KCL 1,000 ML IV SCH ×3 (01:39→19:16)
[2023-04-05] MEDS: Acetaminophen 325 MG TAB PO SCH ×4 (04:51→22:08)
[2023-04-05] MEDS: Pantoprazole 40 MG VIAL IVP SCH (09:01)
[2023-04-05] MEDS: traMADol HCl 50 MG TAB PO PRN ×3 (10:49→22:09)
[2023-04-05] MEDS ORDERED: Ketorolac Tromethamine 30 MG/ML VIAL IM PRN (17:45)
[2023-04-06] MEDS: traMADol HCl 50 MG TAB PO PRN ×2 (03:44→12:15)
[2023-04-06] MEDS: Acetaminophen 325 MG TAB PO SCH ×2 (03:44→09:39)
[2023-04-06] MEDS: Ketorolac Tromethamine 30 MG/ML VIAL IVP PRN ×2 (03:45→09:39)
[2023-04-06] MEDS: D5 1/2 NS w/20 mEq KCL 1,000 ML IV SCH (05:28)
[2023-04-06] MEDS: Pantoprazole 40 MG VIAL IVP SCH (09:39)
[2023-04-06 13:01] VITALS: BP 176/93; TEMP 97.9
== END 2023-04-06 12:51 | disposition home or self-care (01) | DRG 382 ==
LOC: SURG A 04-02 07:43 → SJJU 04-02 16:47
PROVIDERS: ADMIT Surgery; ATTEND Surgery
PROC: 0DB74ZZ Excision of Stomach, Pylorus, Percutaneous Endoscopic Approach (ICD-10-PCS; principal; 2023-04-02)
PROC: 8E0W4CZ Robotic Assisted Procedure of Trunk Region, Percutaneous Endoscopic Approach (ICD-10-PCS; 2023-04-02)
DX: K31.1 Adult hypertrophic pyloric stenosis (principal); M79.7 Fibromyalgia; E78.00 Pure hypercholesterolemia, unspecified; G43.909 Migraine, unspecified, not intractable, without status migrainosus; K66.0 Peritoneal adhesions (postprocedural) (postinfection); Z79.899 Other long term (current) drug therapy; Z79.890 Hormone replacement therapy; Z90.710 Acquired absence of both cervix and uterus; Z98.890 Other specified postprocedural states; Z87.891 Personal history of nicotine dependence; Z88.6 Allergy status to analgesic agent; Z87.11 Personal history of peptic ulcer disease
CPT/HCPCS: 36415; 80048; 85025; 86850; 86900; 86901; 88307; C9113; J0171; J1100; J1885; J2250; J2405; J2704; J3010; J3480; J3490; S0020

== ENCOUNTER 2024-04-25 09:53 | Outpatient (CLI) | payer OTHER | END 2024-04-25 09:54 | disposition home or self-care (01) | LOC: BICMAMMO 09:53 | PROVIDERS: ATTEND Family Medicine | DX: Z12.31 Encounter for screening mammogram for malignant neoplasm of breast (principal); M81.0 Age-related osteoporosis without current pathological fracture; Z80.3 Family history of malignant neoplasm of breast; Z85.41 Personal history of malignant neoplasm of cervix uteri | CPT/HCPCS: 77063; 77067; 77080 ==

== ENCOUNTER 2025-06-02 06:41 | Day surgery (SDC) | payer OTHER, MEDICAID ==
[2025-06-01 12:51] VITALS: BMI 23.8
[2025-06-02] MEDS ORDERED: PROPOFOL 20 ML ONE (07:30)
[2025-06-02] MEDS ORDERED: Rocuronium Bromide 10 MG/ML (10ML VIAL) ONE (07:36)
[2025-06-02] MEDS ORDERED: Lidocaine 2% 6 ML (Jelly) SYR ONE (09:34)
[2025-06-02] MEDS ORDERED: SUCCINYLCHOLINE/SOD CL,ISO/PF 200 MG/10 ML SYRINGE FS ONE (09:37)
[2025-06-02] MEDS ORDERED: fentaNYL PF 100 MCG/2 ML SYRINGE ONE (09:37)
[2025-06-02] MEDS ORDERED: Ondansetron PF 4 MG/2 ML Vial ONE (09:51)
[2025-06-02] MEDS ORDERED: SUGAMMADEX SODIUM 200 MG/2 ML VIAL ONE (09:56)
[2025-06-02] MEDS ORDERED: HYDROmorphone 0.5 MG/0.5 ML SYRINGE ONE (10:40)
== END 2025-06-02 13:15 | disposition home or self-care (01) ==
LOC: SDC 06:41
PROVIDERS: ATTEND Internal Medicine
PROC: 0D768ZZ Dilation of Stomach, Via Natural or Artificial Opening Endoscopic (ICD-10-PCS; principal; 2025-06-02)
PROC: 0D7A8ZZ Dilation of Jejunum, Via Natural or Artificial Opening Endoscopic (ICD-10-PCS; 2025-06-02)
DX: K91.89 Other postprocedural complications and disorders of digestive system (principal); F41.9 Anxiety disorder, unspecified; F32.A Depression, unspecified; E07.9 Disorder of thyroid, unspecified; Z87.891 Personal history of nicotine dependence; Z98.84 Bariatric surgery status; Z90.49 Acquired absence of other specified parts of digestive tract; Z90.710 Acquired absence of both cervix and uterus; Z98.890 Other specified postprocedural states; Z88.5 Allergy status to narcotic agent; Z79.890 Hormone replacement therapy
CPT/HCPCS: 43245; C1726; J1100; J1171; J2250; J2405; J2704; J3010